=== PATIENT | female | born 1950 | race Caucasian/White ===

== ENCOUNTER 2023-03-29 15:36 | Outpatient (OUT) | payer MEDICARE, SELFPAY | END 2023-03-29 15:37 | disposition home or self-care (01) | LOC: VACCLI 04-03 15:36 | DX: Z23 Encounter for immunization (principal) | CPT/HCPCS: 90662; G0008 ==

== ENCOUNTER 2023-05-19 08:09 | Outpatient (OUT) | payer MEDICARE, OTHER, SELFPAY ==
--- NOTE | 2023-05-19 08:13 | MM_ITS ---
Patient Name: TANI LOGAN MR#: [id number] : 1950 Exam Date: 05/19/2023 Ordering Doctor: DR. SUSHIL HERNANDEZ . RADIOLOGY REPORT PROCEDURE: MM TOMOSYNTHESIS SCREENING BI COMPARISON: MG MAMM SCREEN BEENA W CAD, 11/25/2019. MG MAMM SCREEN 3D BEENA CAD, 05/17/2022. INDICATIONS: Screening Calculator Name NCI Breast Cancer Risk Assessment Tool 5 Year Breast Cancer Risk 1.40% Lifetime Breast Cancer Risk 3.40% Personal Breast Cancer No Personal Ovarian Cancer No Treatments None Family Cancers Aunt-maternal with colon cancer at age ~60; Aunt-maternal with breast cancer at age ~60. LOCATION: [facility] BREAST COMPOSITION: Heterogeneously dense,which may obscure small masses. FINDINGS: DIAGNOSTIC CATEGORY 1--NEGATIVE. NO CHANGE FROM COMPARISON ASSESSMENT. Scattered benign-appearing calcifications are present. RIGHT BREAST: No significant suspicious finding. LEFT BREAST: No significant suspicious finding. RECOMMENDATIONS: ROUTINE MAMMOGRAM AND CLINICAL EVALUATION IN 12 MONTHS. PLEASE NOTE: A NORMAL MAMMOGRAM DOES NOT EXCLUDE THE POSSIBILITY OF BREAST CANCER. A CLINICALLY SUSPICIOUS PALPABLE LUMP SHOULD BE BIOPSIED. Dictated by: Glen Moffett MD on 05/19/2023 at 12:55 Approved by: Glen Moffett MD on 05/19/2023 at 12:56
== END 2023-05-19 08:10 | disposition home or self-care (01) ==
LOC: MAMMO 08:09
PROVIDERS: PCP Family Medicine; Visit Provider Family Medicine
DX: Z12.31 Encounter for screening mammogram for malignant neoplasm of breast (principal); Z80.0 Family history of malignant neoplasm of digestive organs; Z80.3 Family history of malignant neoplasm of breast
CPT/HCPCS: 77063; 77067

== ENCOUNTER 2024-05-20 09:56 | Outpatient (OUT) | payer MEDICARE, OTHER, SELFPAY ==
--- NOTE | 2024-05-20 09:59 | MM_ITS ---
Patient Name: TANI LOGAN MR#: [id number] : 1950 Exam Date: 05/20/2024 Ordering Doctor: DR. SUSHIL HERNANDEZ . RADIOLOGY REPORT PROCEDURE: MM TOMOSYNTHESIS SCREENING BI COMPARISON: MM TOMOSYNTHESIS SCREENING BI, 05/19/2023. MG MAMM SCREEN 3D BEENA CAD, 05/17/2022. INDICATIONS: Screening Calculator Name NCI Breast Cancer Risk Assessment Tool 5 Year Breast Cancer Risk 1.40% Lifetime Breast Cancer Risk 3.20% Personal Breast Cancer No Personal Ovarian Cancer No Treatments None Family Cancers Aunt-maternal with colon cancer at age ~60; Aunt-maternal with breast cancer at age ~60. LOCATION: [facility] BREAST COMPOSITION: The breasts are heterogeneously dense,which may obscure small masses. FINDINGS: DIAGNOSTIC CATEGORY 1--NEGATIVE. NO CHANGE FROM COMPARISON ASSESSMENT. Scattered benign-appearing calcifications are present. Scattered benign-appearing lymph nodes are present. RIGHT BREAST: No significant suspicious finding. LEFT BREAST: No significant suspicious finding. RECOMMENDATIONS: ROUTINE MAMMOGRAM AND CLINICAL EVALUATION IN 12 MONTHS. PLEASE NOTE: A NORMAL MAMMOGRAM DOES NOT EXCLUDE THE POSSIBILITY OF BREAST CANCER. A CLINICALLY SUSPICIOUS PALPABLE LUMP SHOULD BE BIOPSIED. Dictated by: Glen Moffett MD on 05/20/2024 at 13:25 Approved by: Glen Moffett MD on 05/20/2024 at 13:26
--- OUTSIDE RECORDS SUMMARY | 2024-05-20 10:16 | XMS_ITS | CCD ---
Author Organization [facility] Care Team Providers Care Clinical Research Physician Name Role Phone HOMER, DR YOANNA Pitts Consulting Unavailable HOMER, DR YOANNA Pitts Primary Care Unavailable CORONEL, DR YOANNA Pitts Admitting Unavailable CORONEL, DR YOANNA Pitts Attending Unavailable Ziebgrisel, DR Garcia Consulting Unavailable CORONEL, DR YOANNA Pitts Consulting Unavailable HOMER, DR YOANNA Pitts Primary Care Unavailable CORONEL, DR YOANNA Pitts Admitting Unavailable CORONEL, DR YOANNA Pitts Attending Unavailable CORONEL, DR YOANNA Pitts Consulting Unavailable CORONEL, DR YOANNA Pitts Primary Care Unavailable CORONEL, DR YOANNA Pitts Admitting Unavailable CORONEL, DR YOANNA Pitts Attending Unavailable CORONEL, DR YOANNA Pitts Consulting Unavailable CORONEL, DR YOANNA Pitts Primary Care Unavailable CORONEL, DR YOANNA Pitts Admitting Unavailable CORONEL, DR YOANNA Pitts Attending Unavailable Hiren, DR Garcia Consulting Unavailable CORONEL, DR YOANNA Pitts Attending Unavailable CORONEL, DR YOANNA Pitts Consulting Unavailable HOMER, DR YOANNA Pitts Primary Care Unavailable HOMER, DR YOANNA Pitts Admitting Unavailable Asim Hanks. Primary Care Physician Asim Hanks. Attending Unavailable Asim Hanks. Attending Unavailable Asim Hanks. Admitting Unavailable Asim Hanks. Attending Unavailable Asim Hanks. Attending Unavailable Asim Hanks. Attending Unavailable Asim Hanks Attending Unavailable Asim Hanks Attending Unavailable Asim Hanks Attending Unavailable Asim Hanks. Attending Unavailable Allergies Allergy Classification Reported Allergen(s) Allergy Type Date of Onset Reaction(s) Facility (1 source) No Known Medication Allergies; Translations: [No Known Medication Allergies] Propensity to adverse reactions (disorder) [facility] Repository Medications Current Medications Medication Drug Class(es) Dates Sig (Normalized) Sig (Original) amLODIPine 5 mg oral tablet (1 source) Dihydropyridine Calcium Channel Liliana Start: 08-24-2023 take 1 tablet by mouth once daily amLODIPine 5 mg Tab See Instructions, TAKE 1 TABLET BY MOUTH EVERY DAY, # 90 tab(s), Refills(s) 1, Pharmacy: [facility]/pharmacy #[id number], 147.3, cm, 08/24/23 9:10:00 EDT, Height/Length Dosing, 89.3, kg, 08/24/23 9:10:00 EDT, Weight Dosing Start Date: 08/24/23 Status: Ordered Problems Problem Classification Problem Date Documented Date Episodic/Chronic Diabetes mellitus without complication (4 sources) Hyperglycemia, unspecified; Translations: [HYPERGLYCEMIA UNSPECIFIED] Onset: 06-24-2022 Episodic Disorders of lipid metabolism (5 sources) Pure hypercholesterolemia, unspecified; Translations: [Hypercholesterolemia ] Onset: 06-18-2022 Chronic Essential hypertension (1 source) Essential hypertension 01-02-2023 Chronic Malaise and fatigue (1 source) Other fatigue; Translations: [OTHER FATIGUE] Onset: 06-25-2022 Episodic Nonmalignant breast conditions (1 source) Fibrocystic disease of breast 12-15-2022 Chronic Osteoarthritis (1 source) Osteoarthritis of multiple joints 01-02-2023 Chronic Comment on above: left knee Osteoporosis (1 source) Age-related osteoporosis without current pathological fracture; Translations: [AGE-REL OSTEOPOR W/O CURR PATH FX] Onset: 06-28-2022 Chronic Other and unspecified benign neoplasm (1 source) Villous adenoma of colon 12-15-2022 Episodic Other screening for suspected conditions (not mental disorders or infectious disease) (9 sources) Encounter for screening for osteoporosis; Translations: [Encounter for screening for malignant neoplasm of cervix] Onset: 05-17-2022 Episodic Residual codes; unclassified (4 sources) Asymptomatic menopausal state; Translations: [ASYMPTOMATIC MENOPAUSAL STATE] Onset: 06-23-2022 Episodic Residual codes; unclassified (1 source) Family history of malignant neoplasm of digestive organs; Translations: [FAM HX MALIG NEOPLASM DIGESTIV ORGN] Onset: 05-22-2022 Episodic Residual codes; unclassified (1 source) Family history of malignant neoplasm of breast; Translations: [FAMILY HX MALIG NEOPLASM OF BREAST] Onset: 05-22-2022 Episodic Results Test Name Value Interpretation Reference Range Facil ity Ambulatory Visit Summaryon 1 Ambulatory Visit Summary Ambulatory Visit Summary AZUL LOGAN :1950 Visit Date:03/26/2024 Ambulatory Visit Instructions Your Diagnosis Primary hypertension BMI 40.0-44.9, adult Morbid obesity with BMI of 40.0-44.9, adult Nonsmoker Age-related osteoporosis without current pathological fracture Hypercholesterolemia Your Care Team Attending Physician - Asim Hanks MD Primary Care Physician - Asim Hanks MD This Is Your Medications List amlodipine (amLODIPine 10 mg Tab) Procedures Performed Appendectomy, Colonoscopy, Hysteroscopy. Discharge Vitals Temperature (Temporal Artery) 36.4 ?C Heart Rate (Peripheral) 72 Respiratory Rate 16 Blood Pressure 132/84 Height 147 cm Height 58 in Weight 87.3 kg Weight 192.06 lb BMI 40.4 What to do next Scheduled Follow-Up Appointments 2024 9:30 AM EDT With: Where: [address] [address]- 2024 10:30 AM EDT With: Asim Hanks MD Where: [address] [address]- Medications What How Much When Instructions Unchanged amlodipine (amLODIPine 10 mg Tab) 1 Tablets By Mouth Every day Pickup at [facility]/pharmacy #[id number] Pharmacy Information [facility]/pharmacy #[id number]: [address], [place] [id number] [phone] Allergies No Known Allergies No Known Medication Allergies Problems Ongoing - Any problem that you are currently receiving treatment for. BMI 40.0-44.9, adult Fibrocystic breast disease (FCBD) Hypercholesterolemia Osteoarthritis of multiple joints Osteoporosis Primary hypertension Serous otitis media Sinusitis Statin intolerance Villous adenoma of colon Patient Survey You may receive a survey via text or e-mail asking about your office visit. Please share your experience with us by completing your survey. We appreciate your feedback and thank you for choosing us for your care. Education Materials BMI for Adults Body mass index (BMI) is a number found using a person's weight and height. BMI can help tell how much of a person's weight is made up of fat. BMI does not measure body fat directly. It is used instead of tests that directly measure body fat, which can be difficult and expensive. What are BMI measurements used for? BMI is useful to: ? Find out if your weight puts you at higher risk for medical problems. ? Help recommend changes, such as in diet and exercise. This can help you reach a healthy weight. BMI screening can be done again to see if these changes are working. How is BMI calculated? Your height and weight are measured. The BMI is found from those numbers. This can be done with U.S. or metric measurements. Note that charts and online BMI calculators are available to help you find your BMI quickly and easily without doing these calculations. To calculate your BMI in U.S. measurements: 1. Measure your weight in pounds (lb). 2. Multiply the number of pounds by 703. ? So, for an adult who weighs 150 lb, multiply that number by 703: 150 x 703, which equals 105,450. 3. Measure your height in inches. Then multiply that number by itself to get a measurement called inches squared. ? So, for an adult who is 70 inches tall, the inches squared measurement is 70 inches x 70 inches, which equals 4,900 inches squared. 4. Divide the total from step 2 (number of lb x 703) by the total from step 3 (inches squared): 105,450 ? 4,900 = 21.5. This is your BMI. To calculate your BMI in metric measurements: 1. Measure your weight in kilograms (kg). ? For this example, the weight is 70 kg. 2. Measure your height in meters (m). Then multiply that number by itself to get a measurement called meters squared. ? So, for an adult who is 1.75 m tall, the meters squared measurement is 1.75 m x 1.75 m, which equals 3.1 meters squared. 3. Divide the number of kilograms (your weight) by the meters squared number. In this example: 70 ? 3.1 = 22.6. This is your BMI. What do the results mean? BMI charts are used to see if you are underweight, normal weight, overweight, or obese. The following guidelines will be used: ? Underweight: BMI less than 18.5. ? Normal weight: BMI between 18.5 and 24.9. ? Overweight: BMI between 25 and 29.9. ? Obese: BMI of 30 or above. BMI is a tool and cannot diagnose a condition. Talk with your health care provider about what your BMI means for you. Keep these notes in mind: ? Weight includes fat and muscle. Someone with a muscular build, such as an athlete, may have a BMI that is higher than 24.9. In cases like these, BMI is not a correct measure of body fat. ? If you have a BMI of 25 or higher, your provider may need to do more testing to find out if excess body fat is the cause. ? BMI (more content not included)... Normal [facility] Family Medicine Office/Clini c Noteon 03-26-2024 Family Medicine Office/Clinic Note Family Medicine Office/Clinic Note [facility] Staff Azul is a 73 year old female presenting for 6 month follow up htn In september increased her [facility] Patient is here for follow up on hypertension. How often are you checking your blood pressure? rarely, her monitor quit working What are your average readings? _ Yearly BMP: 08/24/23_ questions/concerns: none History of Present Illness The patient is a 73-year-old female presenting for a routine follow-up visit. She has a history of morbid obesity with BMI of 40.0-44.9, nonsmoker status, and primary hypertension. The patient mentioned having a history of osteoporosis; however, she is not currently on medication for this condition and does not desire treatment at this time. There was a discussion regarding her excellent blood pressure control with the medication Amlodipine (Norvasc), which she tolerates well without significant peripheral edema. The patient expressed satisfaction with her current health status and was reassured about her slightly elevated cholesterol levels, noting that recent guidelines suggest less concern in her age group without prior cardiovascular events. She reported sinus issues exacerbated by seasonal allergies, with suggestions to use Benadryl and Flonase as needed. Review of Systems PHQ Score Initial Depression Screen Score: 0 SCORE Physical Exam Vitals & Measurements T: 36.4 ?C(Temporal Artery) HR: 72(Peripheral) RR: 16 BP: 132/84 SpO2: 98% HT: 58 in HT: 147 cm WT: 87.3 kg WT: 192.06 lb BMI: 40.4 General: alert, no acute distress ENMT: oral mucosa moist Cardiovascular: Regular rate and rhythm, normal peripheral perfusion Respiratory: Lungs clear to auscultation, respirations non labored Extremities: no deformity, no trauma Neurological: oriented x 4, level of consciousness appropriate for age, CN II-XII intact, motor strength equal & normal bilaterally, speech normal Abdomen: Soft, Non-tender, Non-distended, + Bowel sounds Assessment/Plan 1. Primary hypertension (I10: Essential (primary) hypertension) Blood pressure is well-controlled with Amlodipine (Norvasc). No side effects reported except mild sinus issues, possibly related to allergies. Plan to continue current antihypertensive regimen and consider annual monitoring of cholesterol levels. 2. BMI 40.0-44.9, adult (Z68.41: Body mass index [BMI] 40.0-44.9, adult) BMI education added. 3. Morbid obesity with BMI of 40.0-44.9, adult (E66.01: Morbid (severe) obesity due to excess calories) Continued monitoring of weight and BMI recommended. Discussion of maintaining a balanced diet and regular exercise to manage weight. Patient was encouraged to consider nutritional counseling, although no immediate changes in management were discussed for this visit. 4. Nonsmoker (Z78.9: Other specified health status) No specific follow-up needed for smoker status; continue to promote and support smoke-free lifestyle. 5. Age-related osteoporosis without current pathological fracture (M81.0) The patient declined any pharmaceutical intervention for osteoporosis. Recommended maintaining calcium and vitamin D-rich diet with adequate physical activity to support bone health. 6. Hypercholesterolemia (E78.00: Pure hypercholesterolemia, unspecified) Reviewed labs. Not interested in meds at this time. Orders: amlodipine, 10 mg = 1 tab(s), Oral, Daily, # 90 tab(s), Refills(s) 1, Pharmacy: [facility]/pharmacy #[id number], 147, cm, 03/26/24 9:07:00 EDT, Height/Length Dosing, 87.3, kg, 03/26/24 9:07:00 EDT, Weight Dosing Follow-up No qualifying data available Patient Education BMI for Adults Problem List/Past Medical History Ongoing BMI 40.0-44.9, adult Fibrocystic breast disease (FCBD) Hypercholesterolemia Osteoarthritis of multiple joints Osteoporosis Primary hypertension Serous otitis media Sinusitis Statin intolerance Villous adenoma of colon Historical No qualifying data Procedure/Surgical History Appendectomy, Colonoscopy, Hysteroscopy. Medications amLODIPine 10 mg Tab, 10 mg= 1 tab(s), Oral, Daily, 1 refills Allergies No Known Allergies No Known Medication Allergies Social History Alcohol - Low Risk, 09/21/2023 Never., 03/21/2024 Substance Abuse - Denies Substance Abuse, 09/21/2023 Never., 03/21/2024 Tobacco - Denies Tobacco Use, 09/21/2023 Never (less than 100 in lifetime) Tobacco Use:., 03/26/2024 Family History Heart disease: Father. Immunizations Vaccine Date Status Comments SARS-CoV-2 (COVID-19) mRNA BNT-162b2 vax 04/07/2021 Recorded 2022-12-28: TPV70 SARS-CoV-2 (COVID-19) mRNA BNT-162b2 vax 08/04/2020 Recorded 2022-12-28: TPV70 SARS-CoV-2 (COVID-19) mRNA BNT-162b2 vax 07/14/2020 Recorded 2022-12-28: TPV70 influenza virus vaccine, inactivated 03/05/2015 Recorded Normal [facility] Comment on above: Result Comment: Elec tronically Signed By: Asim Hanks MD\.br\Date and Time Signed: 03/26/24 09:32 EDT Ambulatory Visit Summaryon 0 02-12-2024 Ambulatory Visit Summary Ambulatory Visit Summary AZUL LOGAN :1950 Visit Date:02/12/2024 Ambulatory Visit Instructions Your Diagnosis Primary hypertension Serous otitis media Sinusitis BMI 40.0-44.9, adult, Body mass index [BMI] 40.0-44.9, adult Class 3 severe obesity due to excess calories with body mass index (BMI) of 40.0 to 44.9 in adult Your Care Team Attending Physician - Asim Hanks MD. Primary Care Physician - Asim Hanks MD This Is Your Medications List amlodipine (amLODIPine 10 mg Tab) Procedures Performed Appendectomy, Colonoscopy, Hysteroscopy. Discharge Vitals Temperature (Temporal Artery) 36.7 ?C Heart Rate (Peripheral) 70 Respiratory Rate 16 Blood Pressure 124/82 Height 147 cm Height 58 in Weight 88.0 kg Weight 193.6 lb BMI 40.72 What to do next Scheduled Follow-Up Appointments Monday 9:15 AM EDT With: Demario DSOUZA, Asim Palmer Where: [address] [address]- 2024 9:30 AM EDT With: Where: [address] [address]- Medications What How Much When Instructions Unchanged amlodipine (amLODIPine 10 mg Tab) 1 Tablets By Mouth Every day Allergies No Known Allergies No Known Medication Allergies Problems Ongoing - Any problem that you are currently receiving treatment for. BMI 40.0-44.9, adult Fibrocystic breast disease (FCBD) Hypercholesterolemia Osteoarthritis of multiple joints Osteoporosis Primary hypertension Serous otitis media Sinusitis Statin intolerance Villous adenoma of colon Patient Survey You may receive a survey via text or e-mail asking about your office visit. Please share your experience with us by completing your survey. We appreciate your feedback and thank you for choosing us for your care. Normal [facility] Family Medicine Office/Clini c Noteon 02-12-2024 Family Medicine Office/Clinic Note Family Medicine Office/Clinic Note HPI Staff Azul is a 73 year old female presenting for acute visit Acute: sinus issues persists all through the year and ears are clogged that's just been the last couple months Headache- no Earache- yes ears plugged up mainly left one Sinus Congestion- yes Rhinorrhea- no Sore Throat- no Cough- yes not much wheezing- no Dyspnea on exertion- no Orthopnea- Trouble laying flat/breathing through nose: nodoesn't lay flat ever Lung Hx (asthma, recurring bronchitis/chest colds, COPD)- no Fevers/chills- no GI symptoms- no History of Present Illness - See staff HPI. Review of Systems PHQ Score Initial Depression Screen Score: 0 SCORE Physical Exam Vitals & Measurements T: 36.7 ?C(Temporal Artery) HR: 70(Peripheral) RR: 16 BP: 124/82 SpO2: 98% HT: 58 in HT: 147 cm WT: 88.0 kg WT: 193.6 lb BMI: 40.72 General: alert, no acute distress ENMT: oral mucosa moist, Fluid noted behind both ears. Cardiovascular: regular rate and rhythm, normal peripheral perfusion Respiratory: Lungs CTA, respirations non labored Extremities: no deformity, no trauma Neurological: oriented x 4, LOC appropriate for age, CN II-XII intact, motor strength equal & normal bilaterally, speech normal Abdomen: Soft, Nontender, Non-distended, + BS Assessment/Plan 1. Primary hypertension (I10: Essential (primary) hypertension) - At goal. - NO issues at this time. Ordered: Body Mass Index (BMI) documented 3008F Current tobacco non-user 1036F Depression Screening Negative 3352F Most recent diastolic blood pressure 80-89 mm Hg 3079F Patient screen for fall risk: no falls in last year or 1 fall with no injury in last year 1101F Systolic BP <130 mm Hg (Most Recent) 3074F 2. Serous otitis media (H65.90: Unspecified nonsuppurative otitis media, unspecified ear) - Will you medrol dose sagar - Will do benadryl for at night. Gave precautions with benadryl. Ordered: Body Mass Index (BMI) documented 3008F Current tobacco non-user 1036F Depression Screening Negative 3352F Most recent diastolic blood pressure 80-89 mm Hg 3079F Patient screen for fall risk: no falls in last year or 1 fall with no injury in last year 1101F Systolic BP <130 mm Hg (Most Recent) 3074F 3. Sinusitis (J32.9: Chronic sinusitis, unspecified) - As above. - Zyrtec. Ordered: Body Mass Index (BMI) documented 3008F Current tobacco non-user 1036F Depression Screening Negative 3352F Most recent diastolic blood pressure 80-89 mm Hg 3079F Patient screen for fall risk: no falls in last year or 1 fall with no injury in last year 1101F Systolic BP <130 mm Hg (Most Recent) 3074F 4. BMI 40.0-44.9, adult (Z68.41: Body mass index [BMI] 40.0-44.9, adult) - BMI education added Ordered: Body Mass Index (BMI) documented 3008F Current tobacco non-user 1036F Depression Screening Negative 3352F Most recent diastolic blood pressure 80-89 mm Hg 3079F Patient screen for fall risk: no falls in last year or 1 fall with no injury in last year 1101F Systolic BP <130 mm Hg (Most Recent) 3074F 5. Class 3 severe obesity due to excess calories with body mass index (BMI) of 40.0 to 44.9 in adult (E66.01: Morbid (severe) obesity due to excess calories) - Diet and exercise advised. Ordered: Body Mass Index (BMI) documented 3008F Current tobacco non-user 1036F Depression Screening Negative 3352F Most recent diastolic blood pressure 80-89 mm Hg 3079F Patient screen for fall risk: no falls in last year or 1 fall with no injury in last year 1101F Systolic BP <130 mm Hg (Most Recent) 3074F 6. Nonsmoker (Z78.9: Other specified health status) - Please continue to not smoke. Ordered: Body Mass Index (BMI) documented 3008F Current tobacco non-user 1036F Depression Screening Negative 3352F Most recent diastolic blood pressure 80-89 mm Hg 3079F Patient screen for fall risk: no falls in last year or 1 fall with no injury in last year 1101F Systolic BP <130 mm Hg (Most Recent) 3074F Orders: methylPREDNISolone, = 1 packet(s), Oral, As Directed, as directed on package labeling, X 6 day(s), # 21 tab(s), Refills(s) 0, Pharmacy: [facility]/pharmacy #[id number], 147, cm, 02/12/24 13:52:00 EDT, Height/Length Dosing, 88, kg, 02/12/24 13:52:00 EDT, Weight Dosing Follow-up No qualifying data available Problem List/Past Medical History Ongoing BMI 40.0-44.9, adult Fibrocystic breast disease (FCBD) Hypercholesterolemia Osteoarthritis of multiple joints Osteoporosis Primary hypertension Serous otitis media Sinusitis Statin intolerance Villous adenoma of colon Historical No qualifying data Procedure/Surgical History Appendectomy, Colonoscopy, Hysteroscopy. Medications amLODIPine 10 mg Tab, 10 mg= 1 tab(s), Oral, Daily, 4 refills Medrol 4 mg Tab, 1 packet(s), Oral, As Directed Allergies No Known Allergies No Known Medication Allergies Social History Alcohol - Low Risk, 09/21/2023 Current, Wine (more content not included)... Normal [facility] Comment on above: Result Comment: Elec tronically Signed By: Asim Hanks MD\.br\Date and Time Signed: 02/12/24 14:02 EDT Nurse Consultation Noteon Nurse Consultation Note Reason for Visit Blood pressure reading. Medications amLODIPine 10 mg Tab, 10 mg= 1 tab(s), Oral, Daily Allergies No Known Allergies No Known Medication Allergies Immunizations Vaccine Date Status Comments SARS-CoV-2 (COVID-19) mRNA BNT-162b2 vax 04/07/2021 Recorded 2022-12-28: TPV70 SARS-CoV-2 (COVID-19) mRNA BNT-162b2 vax 08/04/2020 Recorded 2022-12-28: TPV70 SARS-CoV-2 (COVID-19) mRNA BNT-162b2 vax 07/14/2020 Recorded 2022-12-28: TPV70 Normal [facility] Ambulatory Visit Summaryon 0 09-25-2023 Ambulatory Visit Summary AZUL LOGAN :1950 Visit Date:09/25/2023 Ambulatory Visit Instructions Your Diagnosis Primary hypertension BMI 40.0-44.9, adult Class 3 severe obesity due to excess calories with body mass index (BMI) of 40.0 to 44.9 in adult Statin intolerance Hypercholesterolemia Your Care Team Attending Physician - Asim Hanks MD Primary Care Physician - Asim Hanks MD This Is Your Medications List amlodipine (amLODIPine 10 mg Tab) Procedures Performed Appendectomy, Colonoscopy, Hysteroscopy. Discharge Vitals Temperature (Oral) 36.6 ?C Heart Rate (Peripheral) 80 Respiratory Rate 18 Blood Pressure 156/90 Height 147 cm Height 58 in Weight 88.4 kg Weight 194.48 lb BMI 40.91 What to do next Scheduled Follow-Up Appointments Monday 9:00 AM EDT With: Where: [facility] Invalid Interpretation Code [address] [place] [address]- \.br\ 2024 9:30 AM EDT \.br\ With:\.br\ Where: [facility] Medicine Office/Clini c Noteon 09-25-2023 [facility] Medicine Office/Clinic Note Chief Complaint Medicare Wellness Subsequent History of Present Illness Covid-19, MERS, Ebola Screen *Contact With Person With Highly Contagious Disease Like Ebola/MERS/COVID-19 AND Have One or More of the Symptoms Below : No *Travel to a Country With Wide-Spread Ebola/MERS/COVID-19 in the Past 21 Days AND Have One or More of the Symptoms Below : No Patient Reported Covid-19 Testing : No *Verify Droplet, Contact Precautions for Ebola (Reference for CDC) : N/A *Verify Airborne, Droplet Precautions for MERS/COVID-19 : N/A Myra Nieto LPN - 09/21/2023 9:30 EDT Medicare/Medicaid Summary Chief Complaint : Medicare Wellness Subsequent Patient Counseled : Nutrition, Physical activity, Elevated BMI Height/Length Measured : 147 cm(Converted to: 4 ft 10 in, 57.87 in) Weight Measured : 88 kg(Converted to: 194 lb 0 Ounces, 194.007 lb) Body Mass Index Measured : 40.72 kg/m2 Height in Inches : 58 in Weight in Pounds : 193.6 lb Systolic Blood Pressure : 172 mmHg (HI) Diastolic Blood Pressure : 112 mmHg (HI) Blood Pressure Location : Right arm Blood Pressure Position : Sitting O2 Sat Resting/Exertion Alpha : Resting Peripheral Pulse Rate : 73 bpm Respiratory Rate : 16 br/min SpO2 : 94 % Pain Present : No actual or suspected pain Myra Nieto LPN - 09/21/2023 9:30 EDT Hearing and Vision Screening FT FT Whisper Test Comments : No deficits noted. Vision Screen Comments : Wears corrective lenses. Sees Dr. Nathan in [facility] Myra Nieto LPN - 09/21/2023 9:30 EDT Advance Directive FT Advance Directive : No Patient Wishes to Receive Further Information on Advance Directives : Yes Organ Donation Consent : No Myra Nieto LPN - 09/21/2023 9:30 EDT Procedures / Surgeries FT - Procedure History (As Of: 09/21/2023 10:34:47 EDT) Anesthesia Minutes: 0 ; Procedure Name: Appendectomy ; Procedure Minutes: 0 ; Last Reviewed Dt/Tm: 09/21/2023 09:31:36 EDT Anesthesia Minutes: 0 ; Procedure Name: Hysteroscopy ; Procedure Minutes: 0 ; Comments: 12/15/2022 13:16 EDT - Jeannette Santos LPN w/ D&C 05/2004 ; Last Reviewed Dt/Tm: 09/21/2023 09:31:36 EDT Anesthesia Minutes: 0 ; Procedure Name: Colonoscopy ; Procedure Minutes: 0 ; Comments: 12/15/2022 13:15 EDT - Jeannette Santos LPN 2006, 2009, 2015, repeat 5 years ; Last Reviewed Dt/Tm: 09/21/2023 09:31:36 EDT Family History Family History (As Of: 09/21/2023 10:34:47 EDT) Father: Relation: Father ; Gender: Male ; Nomenclature: Heart disease ; Value: Positive Medicare/Medicaid Social History FT Social History (As Of: 09/21/2023 10:34:47 EDT) Alcohol: Low Risk Current, Wine, 1-2 times per year, 1 drinks/episode average. 1.00 drinks/episode maximum. Previous treatment: None. Alcohol use interferes with work or home: No. Drinks more than intended: No. Others hurt by drinking: No. Ready to change: No. Household alcohol concerns: No. (Last Updated: 09/21/2023 09:46:46 EDT by Myra Nieto LPN) Tobacco: Denies Tobacco Use Never (less than 100 in lifetime) Tobacco Use:. Never Smokeless Tobacco Use:. (Last Updated: 08/24/2023 09:03:29 EDT by Jeannette Santos LPN) Substance Abuse: Denies Substance Abuse (Last Updated: 09/21/2023 09:46:49 EDT by Myar Nieto LPN ) Health Risk Assessment FT HRA little interest or pleasure? : No HRA down, depressed, or hopeless? : No Hazards in your house? : No Fall Risk Past Year : No Worried About Falling : No Use a Cane or Walker? : No Someone Helps You in the Morning : No Fallen or felt dizzy standing up? : No Assistance with personal care? : No Trouble taking meds correctly? : No HRA Pain Present : No Able to walk without help? : Yes Ability to shop w/out help : Yes Prepare your own meals? : Yes Housework without help? : Yes Handle money without help : Yes Track own medications without help? : Yes Overall mood for past four weeks : Very well General health rating : Excellent Someone avail. to help if needed? : Yes, as much as I wanted Phys. & emotional health limit social act? : Not at all Gerson REED Myra L - 09/21/2023 9:30 EDT Misc Health Risks Grid Sexual problems : Never Trouble eating well : Never Teeth or denture problems : Never Problems using the telephone : Never Myra Nieto LPN 09/21/2023 9:30 EDT Confident you control health problems : Very confident Difficulties driving your car? : No Seatbelts : I always fasten my seat belt Myra Nieto LPN - 09/21/2023 9:30 EDT Depression Screening Little Interest, Pleasure in Activities (ref) : Not at all Feeling Down, Depressed, Hopeless : Not at all Initial Depression Screening Score : 0 SCORE Depression Screening Result : Negative Myra Nieto LPN - 09/21/2023 9:30 EDT Social Determinants (PRAPARE) What is your housing situation today? : I have housing You or Family Gone Without Household Needs Past Year : No No Transport to Med Appts/Rajni (more content not included)... Normal [facility] Comment on above: Result Comment: Elec tronically Signed By: Asim Hanks MD\.br\Date and Time Signed: 09/25/23 12:52 EDT\.br\Electronically Co-Signed By: Myra Nieto LPN\.br\Date and Time Co-Signed: 09/21/23 10:52 EDT Family Medicine Office/Clinic Note HPI Staff Azul is a 72 year old female presenting for BP check Elevated blood pressure at AWV 168/88 Patient is here for follow up on hypertension. How often are you checking your blood pressure? did occasionally check at home but monitor broke a week ago What are your average readings? 134-140/82-84 Yearly BMP: 08/24/23 History of Present Illness - See staff HPI. - Statins caused muscle aches. Physical Exam Vitals & Measurements T: 36.6 ?C(Oral) HR: 80(Peripheral) RR: 18 BP: 156/90 SpO2: 98% HT: 58 in HT: 147 cm WT: 88.4 kg WT: 194.48 lb BMI: 40.91 General: alert, no acute distress ENMT: oral mucosa moist, Cardiovascular: regular rate and rhythm, normal peripheral perfusion Respiratory: Lungs CTA, respirations non labored Extremities: no deformity, no trauma Neurological: oriented x 4, LOC appropriate for age, CN II-XII intact, motor strength equal & normal bilaterally, speech normal Abdomen: Soft, Nontender, Non-distended, + BS Assessment/Plan 1. Primary hypertension (I10: Essential (primary) hypertension) - Not at goal. - Increased the Norvasc. - Nurse visit for BP check in one month 2. BMI 40.0-44.9, adult (Z68.41: Body mass index [BMI] 40.0-44.9, adult) - BMI education uploaded Ordered: Body Mass Index (BMI) documented 3008F Current tobacco non-user 1036F Depression Screening Negative 3352F Most recent diastolic blood pressure >=90 mm Hg 3080F Most recent systolic blood pressure >= 140 mm Hg 3077F Patient screen for fall risk: no falls in last year or 1 fall with no injury in last year 1101F 3. Class 3 severe obesity due to excess calories with body mass index (BMI) of 40.0 to 44.9 in adult (E66.01: Morbid (severe) obesity due to excess calories) - Diet and exercise advised and discussed Ordered: Body Mass Index (BMI) documented 3008F Current tobacco non-user 1036F Depression Screening Negative 3352F Most recent diastolic blood pressure >=90 mm Hg 3080F Most recent systolic blood pressure >= 140 mm Hg 3077F Patient screen for fall risk: no falls in last year or 1 fall with no injury in last year 1101F 4. Statin intolerance (Z78.9: Other specified health status) - Pt wants to use diet and exercise to control her cholesterol Ordered: Body Mass Index (BMI) documented 3008F Current tobacco non-user 1036F Depression Screening Negative 3352F Most recent diastolic blood pressure >=90 mm Hg 3080F Most recent systolic blood pressure >= 140 mm Hg 3077F Patient screen for fall risk: no falls in last year or 1 fall with no injury in last year 1101F 5. Hypercholesterolemia (E78.00: Pure hypercholesterolemia, unspecified) - As above. - Reviewed labs Orders: amlodipine, 10 mg = 1 tab(s), Oral, Daily, # 90 tab(s), Refills(s) 0, Pharmacy: [facility]/pharmacy #[id number], 147, cm, 09/25/23 10:46:00 EDT, Height/Length Dosing, 88.4, kg, 09/25/23 10:46:00 EDT, Weight Dosing Follow-up No qualifying data available Patient Education BMI for Adults Problem List/Past Medical History Ongoing BMI 40.0-44.9, adult Fibrocystic breast disease (FCBD) Hypercholesterolemia Osteoarthritis of multiple joints Primary hypertension Statin intolerance Villous adenoma of colon Historical No qualifying data Procedure/Surgical History Appendectomy, Colonoscopy, Hysteroscopy. Medications amLODIPine 10 mg Tab, 10 mg= 1 tab(s), Oral, Daily Allergies No Known Allergies No Known Medication Allergies Social History Alcohol - Low Risk, 09/21/2023 Current, Wine, 1-2 times per year, 1 drinks/episode average. 1.00 drinks/episode maximum. Previous treatment: None. Alcohol use interferes with work or home: No. Drinks more than intended: No. Others hurt by drinking: No. Ready to change: No. Household alcohol concerns: No., 09/21/2023 Substance Abuse - Denies Substance Abuse, 09/21/2023 Tobacco - Denies Tobacco Use, 09/21/2023 Never (less than 100 in lifetime) Tobacco Use:. Never Smokeless Tobacco Use:., 09/25/2023 Family History Heart disease: Father. Immunizations Vaccine Date Status Comments SARS-CoV-2 (COVID-19) mRNA BNT-162b2 vax 04/07/2021 Recorded 2022-12-28: TPV70 SARS-CoV-2 (COVID-19) mRNA BNT-162b2 vax 08/04/2020 Recorded 2022-12-28: TPV70 SARS-CoV-2 (COVID-19) mRNA BNT-162b2 vax 07/14/2020 Recorded 2022-12-28: TPV70 Normal [facility] Comment on above: Result Comment: Elec tronically Signed By: Demario DSOUZA, Asim Rollebr\Date and Time Signed: 09/25/23 11:00 EDT Patient Educationon 09-25-19 Patient Education Nutrition BMI for Adults What is BMI? Body mass index (BMI) is a number that is calculated from a person's weight and height. BMI can help estimate how much of a person's weight is composed of fat. BMI does not measure body fat directly. Rather, it is an alternative to procedures that directly measure body fat, which can be difficult and expensive. BMI can help identify people who may be at higher risk for certain medical problems. What are BMI measurements used for? BMI is used as a screening tool to identify possible weight problems. It helps determine whether a person is obese, overweight, a healthy weight, or underweight. BMI is useful for: ? Identifying a weight problem that may be related to a medical condition or may increase the risk for medical problems. ? Promoting changes, such as changes in diet and exercise, to help reach a healthy weight. BMI screening can be repeated to see if these changes are working. How is BMI calculated? BMI involves measuring your weight in relation to your height. Both height and weight are measured, and the BMI is calculated from those numbers. This can be done either in [place] or metric measurements. Note that charts and online BMI calculators are available to help you find your BMI quickly and easily without having to do these calculations yourself. To calculate your BMI in [place] measurements: 1. Measure your weight in pounds (lb). 2. Multiply the number of pounds by 703. ? For example, for a person who weighs 180 lb, multiply that number by 703, which equals 126,540. 3. Measure your height in inches. Then multiply that number by itself to get a measurement called inches squared. ? For example, for a person who is 70 inches tall, the inches squared measurement is 70 inches x 70 inches, which equals 4,900 inches squared. 4. Divide the total from step 2 (number of lb x 703) by the total from step 3 (inches squared): 126,540 ? 4,900 = 25.8. This is your BMI. To calculate your BMI in metric measurements: 1. Measure your weight in kilograms (kg). 2. Measure your height in meters (m). Then multiply that number by itself to get a measurement called meters squared. ? For example, for a person who is 1.75 m tall, the meters squared measurement is 1.75 m x 1.75 m, which is equal to 3.1 meters squared. 3. Divide the number of kilograms (your weight) by the meters squared number. In this example: 70 ? 3.1 = 22.6. This is your BMI. What do the results mean? BMI charts are used to identify whether you are underweight, normal weight, overweight, or obese. The following guidelines will be used: ? Underweight: BMI less than 18.5. ? Normal weight: BMI between 18.5 and 24.9. ? Overweight: BMI between 25 and 29.9. ? Obese: BMI of 30 or above. Keep these notes in mind: ? Weight includes both fat and muscle, so someone with a muscular build, such as an athlete, may have a BMI that is higher than 24.9. In cases like these, BMI is not an accurate measure of body fat. ? To determine if excess body fat is the cause of a BMI of 25 or higher, further assessments may need to be done by a health care provider. ? BMI is usually interpreted in the same way for men and women. Where to find more information For more information about BMI, including tools to quickly calculate your BMI, go to these websites: ? Centers for Disease Control and Prevention: www.cdc.gov ? [place] [employer]: www.heart.org ? National Heart, Lung, and Blood [place]: www.nhlbi.nih.gov Summary ? Body mass index (BMI) is a number that is calculated from a person's weight and height. ? BMI may help estimate how much of a person's weight is composed of fat. BMI can help identify those who may be at higher risk for certain medical problems. ? BMI can be measured using [place] measurements or metric measurements. ? BMI charts are used to identify whether you are underweight, normal weight, overweight, or obese. This information is not intended to replace advice given to you by your health care provider. Make sure you discuss any questions you have with your health care provider. Document Revised: 02/12/2020 Document Reviewed: 12/20/2019 [employer] Patient Education ? 2022 [employer]. [facility] Screenson 09-22-2023 Screens [id number] Normal [facility] Ambulatory Visit Summaryon 0 09-21-2023 Ambulatory Visit Summary AZUL LOGAN :1950 Visit Date:09/21/2023 Ambulatory Visit Instructions Your Diagnosis Annual visit for general adult medical examination with abnormal findings Hypercholesterolemia Primary hypertension Vaccination declined Screening for hepatitis C declined Morbid obesity due to excess calories Your Care Team Attending Physician - Asim Hanks MD Primary Care Physician - Asim Hanks MD This Is Your Medications List amlodipine (amLODIPine 5 mg Tab) Procedures Performed Appendectomy, Colonoscopy, Hysteroscopy. Discharge Vitals Heart Rate (Peripheral) 73 Respiratory Rate 16 Blood Pressure 172/112 Height 147 cm Height 58 in Weight 88 kg Weight 193.6 lb BMI 40.72 What to do next Scheduled Follow-Up Appointments Monday 10:45 AM EDT With: Asim Hanks MD Where: [facility] Normal [address] [place], [place] [id number]- \.br\ Medications\.br\ What How Much When Instructions\.br \ Unchanged amlodipine (amLODIPine 5 mg Tab) See instructions TAKE 1 TABLET BY MOUTH EVERY DAY \.br\ Allergies\.br\ No Known Allergies\.br\ No Known Medication Allergies\.br\ Problems\.br\ Ongoing - Any problem that you are currently receiving treatment for.\.br\ BMI 40.0-44.9, adult\.br\ Fibrocystic breast disease (FCBD)\.br\ Hypercholesterol emia\.br\ Osteoarthritis of multiple joints\.br\ Primary hypertension\.br \ Villous adenoma of colon\.br\ Patient Survey\.br\ You may receive a survey via text or e-mail asking about your office visit. Please share your experience with us by completing your survey. We appreciate your feedback and thank you for choosing us for your care.\.br\ Education Materials\.br\ Hepatitis C Testing\.br\ Why am I having this test?\.br\ Hepatitis C testing is done to check for a liver infection caused by the hepatitis C virus (HCV). A person may have one or more hepatitis C tests done to:\.br\ ? \.br\ Help the health care provider diagnose HCV infection. This is if a person has possible signs of infection or has been exposed to HCV.\.br\ ? \.br\ Find the cause of long-term (chronic) liver disease or abnormal liver function test results.\.br\ ? \.br\ See if a person has had hepatitis C in the past.\.br\ Hepatitis C is usually diagnosed with three blood tests:\.br\ ? \.br\ Anti-HCV test, also called the HCV antibody test.\.br\ ? \.br\ HCV RNA test.\.br\ ? \.br\ HCV genotype test.\.br\ If a person is diagnosed with a current (active) HCV infection, he or she may have another test done to help monitor the condition during treatment. This test is called the quantitative HCV RNA test.\.br\ What is being tested?\.br\ Each HCV test measures the amounts of different substances in your blood.\.br\ ? \.br\ The anti-HCV test checks for proteins that your body makes to fight HCV (antibodies). If you have antibodies to HCV, it means you have been infected with hepatitis C. It does not necessarily mean that you have an active infection.\.br\ ? \.br\ The HCV RNA test checks for genetic material from HCV. This test is done if your HCV antibody test is positive and your health care provider wants to find out if you have an active infection.\.br\ ? \.br\ The HCV genotype test. This test identifies the type (genotype) of virus you have.\.br\ ? \.br\ The quantitative HCV RNA test measures the amount of virus in your blood (viral load).\.br\ What kind of sample is taken?\.br\ \.br\ A blood sample is required for HCV tests. It is usually collected by inserting a needle into a vein in the arm.\.br\ How are the results reported?\.br\ ? \.br\ Anti-HCV test results are reported as either positive or negative for HCV antibodies.\.br\ ? \.br\ HCV RNA test results are reported as either positive or negative for HCV genetic material.\.br\ ? \.br\ HCV genotype test results are reported as which genotype of the virus you have. Genotypes are numbered 1 through 6.\.br\ ? \.br\ Quantitative HCV RNA test results are reported as a number that indicates your viral load. This is given as international units of virus per milliliter of blood (IU/mL).\.br\ ? \.br\ A result of 800,000 IU/mL or greater is considered a high viral load.\.br\ ? \.br\ A result of less than 800,000 IU/mL is considered a low viral load.\.br\ Sometimes, results from the anti-HCV test or the HCV RNA test may report that:\.br\ ? \.br\ HCV antibodies or genetic material are present when they are not present (false-positive result).\.br\ ? \.br\ HCV antibodies or genetic material are not present when they are present (false-negative result).\.br\ What do the results mean?\.br\ For the anti-HCV test:\.br\ ? \.br\ A negative result may mean that you have not been infected with HCV. You may need to have this test done again to confirm this result.\.br\ ? \.br\ A positive result may mean that you have an active HCV infection, or that you have been infected with HCV in the past. An HCV infection may not cause any symptoms, and your body may get rid of the virus without treatment.\.br\ For the HCV RNA test:\.br\ ? \.br\ A negative result means that you do not have an active HCV infection.\.br\ ? \.br\ A positive result means that you have an active HCV infection.\.br\ For the HCV genotype test, knowing the specific genotype you have will help your health care provider recommend the treatment that will work best for you.\.br\ The quantitative HCV RNA test gives your health care provider an idea of how well your treatment is working.\.br\ ? \.br\ If your viral load is high, you may need different treatment.\.br\ ? \.br\ If your viral load is low, your treatment may be working effectively.\.br \ ? \.br\ You may have this test repeated to continue to monitor your treatment.\.br\ Talk with your health care provider about what your results mean.\.br\ Questions to ask your health care provider\.br\ Ask your health care provider, or the department that is doing the test:\.br\ ? \.br\ When will my results be ready?\.br\ ? \.br\ How will I get my results?\.br\ ? \.br\ What are my treatment options?\.br\ ? \.br\ What other tests do I need?\.br\ ? \.br\ What are my next steps?\.br\ Summary\.br\ ? \.br\ Hepatitis C testing is done to check for a liver infection caused by the hepatitis C virus (HCV).\.br\ ? \.br\ Hepatitis C is usually diagnosed with three blood tests and monitored with one test.\.br\ ? \.br\ A blood sample is required for these tests. It is usually collected by inserting a needle into a vein in the arm.\.br\ ? \.br\ Your test results for both the anti-HCV test and the HCV RNA test will be reported as either positive or negative.\.br\ This information is not intended to replace advice given to you by your health care provider. Make sure you discuss any questions you have with your health care provider.\.br\ Document Revised: 04/08/2021 Document Reviewed: 04/08/2021 [facility] Patient Education ? 2022 [employer].br\ Pneumococcal Conjugate Vaccine: What You Need to Know\.br\ 1. Why get vaccinated?\.br\ Pneumococcal conjugate vaccine can prevent pneumococcal disease.\.br\ Pneumococcal disease refers to any illness caused by pneumococcal bacteria. These bacteria can cause many types of illnesses, including pneumonia, which is an infection of the lungs. Pneumococcal bacteria are one of the most common causes of pneumonia.\.br\ Besides pneumonia, pneumococcal bacteria can also cause:\.br\ ? \.br\ Ear infections\.br\ ? \.br\ Sinus infections\.br\ ? \.br\ Meningitis (infection of the tissue covering the brain and spinal cord)\.br\ ? \.br\ Bacteremia (infection of the blood)\.br\ ? \.br\ Anyone can get pneumococcal disease, but children under 2 years old, people with certain medical conditions or other risk factors, and adults 65 years or older are at the highest risk.\.br\ Most pneumococcal infections are mild. However, some can result in long-term problems, such as brain damage or hearing loss. Meningitis, bacteremia, and pneumonia caused by pneumococcal disease can be fatal.\.br\ 2. Pneumococcal conjugate vaccine\.br\ Pneumococcal conjugate vaccine helps protect against bacteria that cause pneumococcal disease. There are three pneumococcal conjugate vaccines (PCV13, PCV15, and PCV20). The different vaccines are [facility] Patient Educationon 09-21-19 Patient Education Infectious Disease Hepatitis C Testing Why am I having this test? Hepatitis C testing is done to check for a liver infection caused by the hepatitis C virus (HCV). A person may have one or more hepatitis C tests done to: ? Help the health care provider diagnose HCV infection. This is if a person has possible signs of infection or has been exposed to HCV. ? Find the cause of long-term (chronic) liver disease or abnormal liver function test results. ? See if a person has had hepatitis C in the past. Hepatitis C is usually diagnosed with three blood tests: ? Anti-HCV test, also called the HCV antibody test. ? HCV RNA test. ? HCV genotype test. If a person is diagnosed with a current (active) HCV infection, he or she may have another test done to help monitor the condition during treatment. This test is called the quantitative HCV RNA test. What is being tested? Each HCV test measures the amounts of different substances in your blood. ? The anti-HCV test checks for proteins that your body makes to fight HCV (antibodies). If you have antibodies to HCV, it means you have been infected with hepatitis C. It does not necessarily mean that you have an active infection. ? The HCV RNA test checks for genetic material from HCV. This test is done if your HCV antibody test is positive and your health care provider wants to find out if you have an active infection. ? The HCV genotype test. This test identifies the type (genotype) of virus you have. ? The quantitative HCV RNA test measures the amount of virus in your blood (viral load). What kind of sample is taken? A blood sample is required for HCV tests. It is usually collected by inserting a needle into a vein in the arm. How are the results reported? ? Anti-HCV test results are reported as either positive or negative for HCV antibodies. ? HCV RNA test results are reported as either positive or negative for HCV genetic material. ? HCV genotype test results are reported as which genotype of the virus you have. Genotypes are numbered 1 through 6. ? Quantitative HCV RNA test results are reported as a number that indicates your viral load. This is given as international units of virus per milliliter of blood (IU/mL). ? A result of 800,000 IU/mL or greater is considered a high viral load. ? A result of less than 800,000 IU/mL is considered a low viral load. Sometimes, results from the anti-HCV test or the HCV RNA test may report that: ? HCV antibodies or genetic material are present when they are not present (false-positive result). ? HCV antibodies or genetic material are not present when they are present (false-negative result). What do the results mean? For the anti-HCV test: ? A negative result may mean that you have not been infected with HCV. You may need to have this test done again to confirm this result. ? A positive result may mean that you have an active HCV infection, or that you have been infected with HCV in the past. An HCV infection may not cause any symptoms, and your body may get rid of the virus without treatment. For the HCV RNA test: ? A negative result means that you do not have an active HCV infection. ? A positive result means that you have an active HCV infection. For the HCV genotype test, knowing the specific genotype you have will help your health care provider recommend the treatment that will work best for you. The quantitative HCV RNA test gives your health care provider an idea of how well your treatment is working. ? If your viral load is high, you may need different treatment. ? If your viral load is low, your treatment may be working effectively. ? You may have this test repeated to continue to monitor your treatment. Talk with your health care provider about what your results mean. Questions to ask your health care provider Ask your health care provider, or the department that is doing the test: ? When will my results be ready? ? How will I get my results? ? What are my treatment options? ? What other tests do I need? ? What are my next steps? Summary ? Hepatitis C testing is done to check for a liver infection caused by the hepatitis C virus (HCV). ? Hepatitis C is usually diagnosed with three blood tests and monitored with one test. ? A blood sample is required for these tests. It is usually collected by inserting a needle into a vein in the arm. ? Your test results for both the anti-HCV test and the HCV RNA test will be reported as either positive or negative. This information is not intended to replace advice given to you by your health care provider. Make sure you discuss any questions you have with your health care provider. Document Revised: 04/08/2021 Document Reviewed: 04/08/2021 Elsevier Patient Education ? 2022 [employer] Pneumococcal Conjugate Vaccine: What You Need to Know 1. Why get vaccinated? Pneumococcal conjugate vaccine can prevent pneumococcal disease. Pneumococ (more content not included)... Normal [facility] Ambulatory Visit Summaryon 0 08-24-2023 Ambulatory Visit Summary AZUL LOGAN :1950 Visit Date:08/24/2023 Ambulatory Visit Instructions Your Diagnosis Hypercholesterolemia Primary hypertension BMI 40.0-44.9, adult Class 3 severe obesity due to excess calories with body mass index (BMI) of 40.0 to 44.9 in adult Nonsmoker Villous adenoma of colon Your Care Team Attending Physician - Asim Hanks MD. Primary Care Physician - Asim Hanks MD. This Is Your Medications List amlodipine (amLODIPine 5 mg Tab) [Image Removed: STOP]Stop taking these medications rosuvastatin (rosuvastatin 10 mg Tab) Procedures Performed Appendectomy, Colonoscopy, Hysteroscopy. Discharge Vitals Temperature (Oral) 36.6 ?C Heart Rate (Peripheral) 78 Respiratory Rate 16 Blood Pressure 136/82 Height 147.3 cm Height 58 in Weight 89.3 kg Weight 196.46 lb BMI 41.16 What to do next Scheduled Follow-Up Appointments 2023 9:30 AM EDT Where: [facility] [place] Normal [facility] BMPon 08-24-2023 Anion gap [Moles/Vol] 12 mmol/L Normal 6-[address] [facility] Comment on above: Performed By: #### 2 189311, 2590318, 0240886, [id number] ####[facility] [address] [place] [address] Calcium [Mass/Vol] 9.3 mg/dL Normal 8.9-11.[address] [facility] Comment on above: Performed By: #### 2 350527, 3109201, 3284386, [id number] ####[facility] [address] [place] [address] Chloride [Moles/Vol] 106 mmol/L Normal 101-111 [facility] Comment on above: Performed By: #### 2 319878, 6758639, 1700842, 15647688 ####[facility] [address] [place] [address] CO2 [Moles/Vol] 26 mmol/L Normal 21-[address] [facility] Comment on above: Performed By: #### 2 916109, 1323804, 1657881, 72967342 ####[facility] [address] [place] [address] Creatinine [Mass/Vol] 0.8 mg/dL Normal 0.5-1.[address] [facility] Comment on above: Performed By: #### 2 704303, 8085339, 8716146, [id number] ####[facility] [address] [place] [address] Glucose [Mass/Vol] 103 mg/dL Normal 55-[address] [facility] Comment on above: Performed By: #### 2 808244, 7908604, 9755679, 18376854 ####[facility] [address] [address] Potassium [Moles/Vol] 3.9 mmol/L Normal 3.5-5.[address] [facility] Comment on above: Performed By: #### 2 842906, 3832080, 2922887, 14563343 ####[facility] [address]N[facility] [address] Sodium [Moles/Vol] 140 mmol/L Normal 135-[address] [facility] Comment on above: Performed By: #### 2 563151, 7519762, 7606890, 87016759 ####[facility] [address] [address] Urea nitrogen [Mass/Vol] 19 mg/dL Normal 5-[address] [facility] Comment on above: Performed By: #### 2 091134, 1748231, 1980838, 77930942 ####[address] [address] Urea nitrogen/Creatinine [Mass ratio] 24 No Units High 10-[address] [facility] Comment on above: Performed By: #### 2 353508, 1150032, 7699258, 21432978 ####[address] [address] CBC w/ Auto Diffon 4 Basophils/100 WBC (Bld) 0.5 % Normal 0.0-2.[address] [facility] Comment on above: Performed By: #### 2 817564, 9108318, 0960885, 97646957 ####[address] [address] Basophils/Leukocytes Auto (Bld) [Pure # fraction] 0.0 E9/L Normal 0.0-0.[address] [facility] Comment on above: Performed By: #### 2 462650, 0834194, 5951763, 79071471 ####[address] [address] Eosinophils (Bld) [#/Vol] 0.1 E9/L Normal 0.0-0.[address] [facility] Comment on above: Performed By: #### 2 460840, 1556708, 1512927, 12824367 ####[address] [address] Eosinophils/100 WBC (Bld) 1.4 % Normal 0.0-8.[address] [facility] Comment on above: Performed By: #### 2 495939, 6133521, 3177673, 18004396 ####[address] [address] Erythrocyte distribution width (RBC) [Ratio] 14.1 % Normal 10.9-14.[address] [facility] Comment on above: Performed By: #### 2 003405, 3787601, 8871789, 48668714 ####[facility] [address] [place] [address] Hematocrit (Bld) [Volume fraction] 44.2 % Normal 34.0-46.[address] [facility] Comment on above: Performed By: #### 2 586912, 2513582, 0246746, 76436131 ####[address] [address] Hemoglobin (Bld) [Mass/Vol] 14.4 g/dL Normal 12.0-16.[address] [facility] Comment on above: Performed By: #### 2 766761, 9423441, 7251978, 69304041 ####[address] [address] Lymphocytes (Bld) [#/Vol] 2.3 E9/L Normal 1.0-4.[address] [facility] Comment on above: Performed By: #### 2 680521, 1901733, 3637259, 69663861 ####[address] [address] Lymphocytes/100 WBC (Bld) 35.3 % Normal 14.0-50.[address] [facility] Comment on above: Performed By: #### 2 600415, 0455587, 7395450, 44834629 ####[address] [address] MCH (RBC) [Entitic mass] 28.4 pg Normal 27.0-34.[address] [facility] Comment on above: Performed By: #### 2 723110, 6925067, 1601584, 21956909 ####[address] [address] MCHC (RBC) [Mass/Vol] 32.6 g/dL Normal 31.4-36.[address] [facility] Comment on above: Performed By: #### 2 067217, 7652554, 8686232, 31124522 ####[address] [address] MCV (RBC) [Entitic vol] 87.0 fL Normal 80.0-100.[address] [facility] Comment on above: Performed By: #### 2 605610, 0164153, 1672518, 49607484 ####[facility] [address] [place] [address] Monocytes (Bld) [#/Vol] 0.6 E9/L Normal 0.2-1.[address] [facility] Comment on above: Performed By: #### 2 588763, 9685212, 0921615, 35104023 ####[address] [address] Neutrophils (Bld) [#/Vol] 3.6 E9/L Normal 2.0-7.[address] [facility] Comment on above: Performed By: #### 2 352774, 5063325, 3578349, 47369535 ####[address] [address] Neutrophils/100 WBC (Bld) 54.1 % Normal 36.0-75.[address] [facility] Comment on above: Performed By: #### 2 502197, 0225700, 1880860, 20073420 ####[address] [address] Platelet mean volume (Bld) [Entitic vol] 10.5 fL Normal 6.4-10.[address] [facility] Comment on above: Performed By: #### 2 211572, 4841063, 5341028, 78118934 ####[address] [address] Platelets (Bld) [#/Vol] 267.0 E9/L Normal 150.0-500.[address] [facility] Comment on above: Performed By: #### 2 321173, 9312942, 3722653, 68818885 ####[address] [address] RBC (Bld) [#/Vol] 5.1 E12/L Normal 4.3-5.[address] [facility] Comment on above: Performed By: #### 2 203114, 7007657, 2909175, 56623569 ####[facility] [address] [place] [address] WBC corrected for nucl RBC Auto (Bld) [#/Vol] 6.6 E9/L Normal 4.0-11.[address] [facility] Comment on above: Performed By: #### 2 579530, 7645990, 8492644, 92455442 ####[facility] [address] [place] [address] CHEMISTRYOrdered By: SYSTEM SYSTEM on 08-24-2023 Anion gap [Moles/Vol] 12 mmol/L Normal 6 - 16 mEq/L [facility] Calcium [Mass/Vol] 9.3 mg/dL Normal 8.9 - 11.1 mg/dL [facility] Chloride [Moles/Vol] 106 mmol/L Normal 101 - 111 mmol/ L [facility] Cholesterol [Mass/Vol] 255 mg/dL High 120 - 200 mg/dL [facility] Cholesterol in HDL [Mass/Vol] 59 mg/dL Invalid Interpretation Code [facility] Comment on above: Result Comment: '>= 60 LOW RISK' '<= 40 HIGH RISK' Cholesterol in LDL [Mass/Vol] 167 mg/dL High <=129mg/dL [facility] Cholesterol in VLDL [Mass/Vol] 33 mg/dL Normal 7 - 40 mg/dL [facility] CO2 [Moles/Vol] 26 mmol/L Normal 21 - 31 mmol/L Remis ol Chem Creatinine [Mass/Vol] 0.8 mg/dL Normal 0.5 - 1.3 mg/dL [facility] eGFR 77 mL/min/1.73 m2 Normal >=59mL/min /1.73 m2 [facility] Glucose [Mass/Vol] 103 mg/dL Normal 55 - 199 mg/dL Re misol Chem Potassium [Moles/Vol] 3.9 mmol/L Normal 3.5 - 5.3 mmol/L [facility] Sodium [Moles/Vol] 140 mmol/L Normal 135 - 145 mmol/L [facility] Triglyceride [Mass/Vol] 166 mg/dL High <=149mg/dL [facility] Urea nitrogen [Mass/Vol] 19 mg/dL Normal 5 - 21 mg/dL [facility] Urea nitrogen/Creatinine [Mass ratio] 24 mg/mg High 10 - 20 [facility] Family Medicine Office/Clini c Noteon 08-24-2023 Family Medicine Office/Clinic Note HPI Staff Azul is a 72 year old female presenting for a yearly check up Acute: burning with urination occasionally couple months ago, not consistant She says she knows she doesn't drink enough trying to increase her water intake Patient is here for follow up on hypertension. How often are you checking your blood pressure? Doesnt check BP at home her monitor isn't working anymore What are your average readings? N/A, Not checking at home Yearly BMP: due Patient is here for follow up on hyperlipidemia: Do you have side effects from the medication? no not taking the crestor anymore Refill needed?: no Yearly Lipid labs: due flu: UTD History of Present Illness -See staff hpi Review of Systems PHQ Score Initial Depression Screen Score: 0 SCORE Physical Exam Vitals & Measurements T: 36.6 ?C(Oral) HR: 78(Peripheral) RR: 16 BP: 136/82 SpO2: 98% HT: 58 in HT: 147.3 cm WT: 89.3 kg WT: 196.46 lb BMI: 41.16 General: alert, no acute distress ENMT: oral mucosa moist, Cardiovascular: regular rate and rhythm, normal peripheral perfusion Respiratory: Lungs CTA, respirations non labored Extremities: no deformity, no trauma Neurological: oriented x 4, LOC appropriate for age, CN II-XII intact, motor strength equal & normal bilaterally, speech normal Abdomen: Soft, Nontender, Non-distended, + BS Assessment/Plan 1. Hypercholesterolemia (E78.00: Pure hypercholesterolemia, unspecified) - Discussed Pros and Cons of medications. - Labs today. - Will discuss further Ordered: Basic Metabolic Panel Body Mass Index (BMI) documented 3008F CBC w/ Auto Diff Current tobacco non-user 1036F Depression Screening Negative 3352F Influenza immunization administered or previously received 4274F Lipid Panel Most recent diastolic blood pressure 80-89 mm Hg 3079F Patient screen for fall risk: no falls in last year or 1 fall with no injury in last year 1101F Systolic BP 130-139 mm Hg (Most Recent) 3075F Urnls Dip Stick Auto w/o Microscopy POC 38230 2. Primary hypertension (I10: Essential (primary) hypertension) - At goal. - Will refill. Ordered: Basic Metabolic Panel Body Mass Index (BMI) documented 3008F CBC w/ Auto Diff Current tobacco non-user 1036F Depression Screening Negative 3352F Influenza immunization administered or previously received 4274F Lipid Panel Most recent diastolic blood pressure 80-89 mm Hg 3079F Patient screen for fall risk: no falls in last year or 1 fall with no injury in last year 1101F Systolic BP 130-139 mm Hg (Most Recent) 3075F Urnls Dip Stick Auto w/o Microscopy POC 57899 3. BMI 40.0-44.9, adult (Z68.41: Body mass index [BMI] 40.0-44.9, adult) - BMI education uploaded - Diet and exercise advised Ordered: Basic Metabolic Panel Body Mass Index (BMI) documented 3008F CBC w/ Auto Diff Current tobacco non-user 1036F Depression Screening Negative 3352F Influenza immunization administered or previously received 4274F Lipid Panel Most recent diastolic blood pressure 80-89 mm Hg 3079F Patient screen for fall risk: no falls in last year or 1 fall with no injury in last year 1101F Systolic BP 130-139 mm Hg (Most Recent) 3075F 4. Class 3 severe obesity due to excess calories with body mass index (BMI) of 40.0 to 44.9 in adult (E66.01: Morbid (severe) obesity due to excess calories) - As above Ordered: Basic Metabolic Panel Body Mass Index (BMI) documented 3008F CBC w/ Auto Diff Current tobacco non-user 1036F Depression Screening Negative 3352F Influenza immunization administered or previously received 4274F Lipid Panel Most recent diastolic blood pressure 80-89 mm Hg 3079F Patient screen for fall risk: no falls in last year or 1 fall with no injury in last year 1101F Systolic BP 130-139 mm Hg (Most Recent) 3075F 5. Nonsmoker (Z78.9: Other specified health status) - Please continue to not smoke Ordered: Basic Metabolic Panel Body Mass Index (BMI) documented 3008F CBC w/ Auto Diff Current tobacco non-user 1036F Depression Screening Negative 3352F Influenza immunization administered or previously received 4274F Lipid Panel Most recent diastolic blood pressure 80-89 mm Hg 3079F Patient screen for fall risk: no falls in last year or 1 fall with no injury in last year 1101F Systolic BP 130-139 mm Hg (Most Recent) 3075F 6. 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 Normal [facility] Comment on above: Result Comment: Elec tronically Signed By: Demario DSOUZA, Asim Palmer\.br\Date and Time Signed: 08/24/23 09:48 EDT HEMATOLOGYOrdered By: SYSTEM SYSTEM on 08-24-2023 Basophils/100 WBC (Bld) 0.5 % Normal 0.0 - 2.0 % Remisol Heme Basophils/Leukocytes Auto (Bld) [Pure # fraction] 0.0 E9/L Normal 0.0 - 0.2 E9/L Remisol Heme Eosinophils (Bld) [#/Vol] 0.1 E9/L Normal 0.0 - 0.5 E9/L Remisol Heme Eosinophils/100 WBC (Bld) 1.4 % Normal 0.0 - 8.0 % Remisol Heme Erythrocyte distribution width (RBC) [Ratio] 14.1 % Normal 10.9 - 14.2 % Rem[facility]e Hematocrit (Bld) [Volume fraction] 44.2 % Normal 34.0 - 46.0 % Remisol Heme Hemoglobin (Bld) [Mass/Vol] 14.4 g/dL Normal 12.0 - 16.0 gm/dL Remisol Heme Lymphocytes (Bld) [#/Vol] 2.3 E9/L Normal 1.0 - 4.0 E9/L Remisol Heme Lymphocytes/100 WBC (Bld) 35.3 % Normal 14.0 - 50.0 % Remisol Heme MCH (RBC) [Entitic mass] 28.4 pg Normal 27.0 - 34.0 pg Remisol Heme MCHC (RBC) [Mass/Vol] 32.6 g/dL Normal 31.4 - 36.0 gm/dL Remisol Heme MCV (RBC) [Entitic vol] 87.0 fL Normal 80.0 - 100.0 fL Rem[facility] Heme Monocytes (Bld) [#/Vol] 0.6 E9/L Normal 0.2 - 1.0 E9/L Remisol Heme Monocytes/100 WBC (Bld) 8.7 % Normal 4.0 - 14.0 % Remisol Heme Neutrophils (Bld) [#/Vol] 3.6 E9/L Normal 2.0 - 7.5 E9/L Remisol Heme Neutrophils/100 WBC (Bld) 54.1 % Normal 36.0 - 75.0 % Remisol Heme Platelet mean volume (Bld) [Entitic vol] 10.5 fL Normal 6.4 - 10.8 fL Rem[facility] Heme Platelets (Bld) [#/Vol] 267.0 E9/L Normal 150.0 - 500.0 E9/L Remisol Heme RBC (Bld) [#/Vol] 5.1 E12/L Normal 4.3 - 5.9 E12/L Re misol Heme WBC corrected for nucl RBC Auto (Bld) [#/Vol] 6.6 E9/L Normal 4.0 - 11.0 E9/L Remisol Heme Lipid Panelon 08-24-2023 Cholesterol [Mass/Vol] 255 mg/dL High 120-[address] [facility] Comment on above: Performed By: #### 2 122838, 3567149, 6078366, 12534323 ####[facility] [address] [place] [address] Cholesterol in HDL [Mass/Vol] 59 mg/dL Invalid Interpretation Code [facility] Comment on above: Result Comment: '>= 60 LOW RISK' '<= 40 HIGH RISK' Performed By: #### 2 955319, 3021268, 3110721, 46897075 ####[facility] [address] [place] [address] Cholesterol in LDL [Mass/Vol] 167 mg/dL High <=[address] [facility] Comment on above: Performed By: #### 2 436982, 5682342, 7509736, 50986412 ####[facility] [address] [place] [address] Cholesterol in VLDL [Mass/Vol] 33 mg/dL Normal 7-[address] [facility] Comment on above: Performed By: #### 2 538109, 1650127, 1156703, 07961783 ####[facility] [address] [facility] [place] [address] Triglyceride [Mass/Vol] 166 mg/dL High <=[address] [facility] Comment on above: Performed By: #### 2 914311, 8007682, 3996781, 90500915 ####[facility] [address] [facility] [place] [address] Patient Educationon 08-24-19 Patient Education Nutrition BMI for Adults What is BMI? Body mass index (BMI) is a number that is calculated from a person's weight and height. BMI can help estimate how much of a person's weight is composed of fat. BMI does not measure body fat directly. Rather, it is an alternative to procedures that directly measure body fat, which can be difficult and expensive. BMI can help identify people who may be at higher risk for certain medical problems. What are BMI measurements used for? BMI is used as a screening tool to identify possible weight problems. It helps determine whether a person is obese, overweight, a healthy weight, or underweight. BMI is useful for: ? Identifying a weight problem that may be related to a medical condition or may increase the risk for medical problems. ? Promoting changes, such as changes in diet and exercise, to help reach a healthy weight. BMI screening can be repeated to see if these changes are working. How is BMI calculated? BMI involves measuring your weight in relation to your height. Both height and weight are measured, and the BMI is calculated from those numbers. This can be done either in [place] ([place] or metric measurements. Note that charts and online BMI calculators are available to help you find your BMI quickly and easily without having to do these calculations yourself. To calculate your BMI in [place] measurements: 1. Measure your weight in pounds (lb). 2. Multiply the number of pounds by 703. ? For example, for a person who weighs 180 lb, multiply that number by 703, which equals 126,540. 3. Measure your height in inches. Then multiply that number by itself to get a measurement called inches squared. ? For example, for a person who is 70 inches tall, the inches squared measurement is 70 inches x 70 inches, which equals 4,900 inches squared. 4. Divide the total from step 2 (number of lb x 703) by the total from step 3 (inches squared): 126,540 ? 4,900 = 25.8. This is your BMI. To calculate your BMI in metric measurements: 1. Measure your weight in kilograms (kg). 2. Measure your height in meters (m). Then multiply that number by itself to get a measurement called meters squared. ? For example, for a person who is 1.75 m tall, the meters squared measurement is 1.75 m x 1.75 m, which is equal to 3.1 meters squared. 3. Divide the number of kilograms (your weight) by the meters squared number. In this example: 70 ? 3.1 = 22.6. This is your BMI. What do the results mean? BMI charts are used to identify whether you are underweight, normal weight, overweight, or obese. The following guidelines will be used: ? Underweight: BMI less than 18.5. ? Normal weight: BMI between 18.5 and 24.9. ? Overweight: BMI between 25 and 29.9. ? Obese: BMI of 30 or above. Keep these notes in mind: ? Weight includes both fat and muscle, so someone with a muscular build, such as an athlete, may have a BMI that is higher than 24.9. In cases like these, BMI is not an accurate measure of body fat. ? To determine if excess body fat is the cause of a BMI of 25 or higher, further assessments may need to be done by a health care provider. ? BMI is usually interpreted in the same way for men and women. Where to find more information For more information about BMI, including tools to quickly calculate your BMI, go to these websites: ? Centers for Disease Control and Prevention: www.cdc.gov ? [place] [employer]: www.heart.org ? National Heart, Lung, and Blood [place]: www.nhlbi.nih.gov Summary ? Body mass index (BMI) is a number that is calculated from a person's weight and height. ? BMI may help estimate how much of a person's weight is composed of fat. BMI can help identify those who may be at higher risk for certain medical problems. ? BMI can be measured using [place] measurements or metric measurements. ? BMI charts are used to identify whether you are underweight, normal weight, overweight, or obese. This information is not intended to replace advice given to you by your health care provider. Make sure you discuss any questions you have with your health care provider. Document Revised: 02/12/2020 Document Reviewed: 12/20/2019 [employer] Patient Education ? 2022 [employer]. [facility] Pre-Visit Planningon 024 Pre-Visit Planning - From: Rik ROSAS, [place] To: Demario DSOUZA, Asim Palmer; Sent: 08/23/2023 12:40:16 EDT Subject: Pre-Visit Planning Due Date/Time: 08/23/2023 12:40:00 EDT Caller Name: AZUL LOGAN; Caller Number: H , M Ia Dr. Hanks, *Based on your response below, can you please update the chronic problem list and address during this visit if appropriate?* During a pre-visit planning chart review, I noted the following documentation in the medical record indicates that this patient had a BMI of 43.13 on 01/02/2023. The National [place] of Health defines obesity as morbid if the patient demonstrates a BMI of over 40, or a BMI of 35 or more and at least one weight-related comorbid condition, such as diabetes or hypertension. Examples of weight-related comorbidities include diabetes, heart disease, stroke, hypertension, and arthritis. Current problem list: Hyperlipidemia, Osteoarthritis Based on your medical judgment, can you further clarify the following diagnosis that correlates with the BMI listed above if the current BMI is still 35 or over? - Morbid obesity (please also include additional diagnosis to reflect current BMI) - Class 3 severe obesity with serious comorbidity in adult (please also include additional diagnosis to reflect current BMI) - Other (please specify): I can update the problem list with your specified response if you would like. In responding to this request, please exercise your independent professional judgment. The fact that a question is asked does not imply that any particular answer is desired or expected. If you have any questions, please feel free to contact me at extension [phone]. Thank you! ESPINOZA Abdi, RN, CCM, CCDS, CCDS-O From: Demario DSOUZA, Asim Palmer To: Rik ROSAS, Beverly; Sent: 08/24/2023 10:25:40 EDT Subject: RE: Pre-Visit Planning Caller Name: AZUL LOGAN; Caller Number: Gale , M addressed Normal [address] [facility] [facility] eGFRon 08-24-2023 eGFR 77 mL/min/1.73 m2 Normal >=[address] [facility] Comment on above: Order Comment: Order added by Discern Expert. Performed By: #### 2 [id number] ####[facility] [address] [place] [address] Outside Mammographyon 2022 Outside Mammography [id number] 20 [id number]#[id number] 0TIFF Normal [facility] GLYCOHEMOGLOBIN A1Con 2022 ADA RECOMMENDATION SEE BELOW Normal [facility] Comment on above: Result Comment: ADA RECOMMENDED LIMIT 4.0 - 6.0 ADA THERAPEUTIC TARGET < 7.0 ACTION SUGGESTED > 7.0 Performed By: #### A 1C #### [facility] [address] [place], [place] [address] Dr. Benitez Prescott Glucose [Mass/Vol] 111 mg/dL Normal [facility] Comment on above: Performed By: #### A 1C #### [facility] [address] [place], [place] [address] Dr. Benitez Prescott HbA1c (Bld) [Mass fraction] 5.5 % Normal 4.5-6.2 [facility] Comment on above: Performed By: #### A 1C #### [facility] [address] [place] [address] [address] Benitez Prescott XR DEXA BONE DENSITYon 06-23 XR DEXA BONE DENSITY EXAMINATION: XR DEX A BONE DENSITY, 06/23/2022 7:57 AM EST HISTORY: Menopause present COMPARISON: None. TECHNIQUE: Dual-energy X-ray absorptiometry (DEXA) bone density study performed for the axial skeleton. FINDINGS: SPINE ANALYSIS: Average bone mineral density is 0.868 g/cm2. T-score (standard deviation relative to young adult mean): -2.8 . HIP ANALYSIS: Lowest bone mineral density is within the femoral neck, 0.750 g/cm2. T-score (standard deviation relative to young adult mean): -2.1 . IMPRESSION: World [employer] Classification: Osteoporosis - High Fracture Risk Electronically authenticated by: JOSE MARADIAGA Date: 2022-06-23 08:41 Normal [facility] PAP ACOG PANEL 2: 30 to 65on 06-22-2022 . . Normal [facility] Comment on above: Performed By: #### [id number] #### [facility] [address] [place] [address] [address] Benitez Prescott Age Gdln ACOG Testing Comment Normal [facility] Comment on above: Result Comment: <21 or >65 or no age provided Performed By: #### 4 [id number] #### [facility] [address] [place] [address] [address] Benitez Prescott DIAGNOSIS: Comment Normal [facility] Comment on above: Result Comment: NEGA TIVE FOR INTRAEPITHELIAL LESION OR MALIGNANCY. REACTIVE CELLULAR CHANGES AND/OR REPAIR ARE PRESENT. CELLULAR CHANGES ASSOCIATED WITH ATROPHY ARE PRESENT. Performed By: #### 4 [id number] #### [facility] [address] [address] [address] Benitez Prescott Electronically signed by: Comment Normal [facility] Comment on above: Result Comment: Sabra Hernandez MD, Pathologist Performed By: #### 4 [id number] #### [facility] [address] [address] [address] Benitez Prescott Methodology: Comment Normal [facility] Comment on above: Result Comment: This liquid based ThinPrep(R) pap test was screened with the use of an image guided system. Performed By: #### 4 [id number] #### [facility] [address] [place] [address] Dr. Benitez Prescott Note: Comment Normal [facility] Comment on above: Result Comment: The Pap smear is a screening test designed to aid in the detection of premalignant and malignant conditions of the uterine cervix. It is not a diagnostic procedure and should not be used as the sole means of detecting cervical cancer. Both false-positive and false-negative reports do occur. . Performed By: #### 4 [id number] #### [facility] [address] [place] [address] Dr. Benitez Prescott Performed by: Comment Normal [facility] Comment on above: Result Comment: Sonny Amador, Buttoner (ASCP) Performed By: #### 4 [id number] #### [facility] [address] [place] [address] Dr. Benitez Prescott Specimen adequacy: Comment Normal [facility] Comment on above: Result Comment: Sati sfactory for evaluation. Endocervical component may not be distinguished in cases of atrophy. Performed By: #### 4 [id number] #### [facility] [address] [place] [address] Dr. Benitez Prescott CBC AUTO DIFFon 06-18-2022 BASO # 0.1 103/ul Normal 0.0-0.1 [facility] Comment on above: Performed By: #### C BC #### [facility] [address] [place] [address] Dr. Benitez Prescott Basophils/100 WBC (Bld) 0.7 % Normal 0.2-2.0 [facility] Comment on above: Performed By: #### C BC #### [facility] [address] [place] [address] Dr. Benitez Prescott EO # 0.1 103/ul Normal 0.0-0.7 [facility] Comment on above: Performed By: #### C BC #### [facility] [address] [place] [address] Dr. Benitez Prescott Eosinophils/100 WBC (Bld) 1.6 % Normal 0.9-7.[address] [facility] Comment on above: Performed By: #### C BC #### [facility] [address] [place] [address] Dr. Benitez Prescott Erythrocyte distribution width (RBC) [Ratio] 13.3 % Normal 11.0-15.[address] [facility] Comment on above: Performed By: #### C BC #### [facility] [address] [place] [address] Dr. Benitez Prescott Hematocrit (Bld) [Volume fraction] 42.1 % Normal 36.0-48.0 [facility] Comment on above: Performed By: #### C BC #### [facility] [address] [place] [address] Dr. Benitez Prescott Hemoglobin (Bld) [Mass/Vol] 14.3 g/dL Normal 12.0-16.0 [facility] Comment on above: Performed By: #### C BC #### [facility] [address] [place] [address] Dr. Benitez Prescott IG # 0.02 10e3/ul Normal 0.00-0.03 [facility] Comment on above: Performed By: #### C BC #### [facility] [address] [place] [address] Dr. Benitez Prescott IG % 0.2 % Normal 0.0-0.[address] [facility] Comment on above: Performed By: #### C BC #### [facility] [address] [place] [address] Dr. Benitez Prescott LYMPH # 3.9 103/ul Critically high 1.2-3.[address] [facility] Comment on above: Performed By: #### C BC #### [facility] [address] [place] [address] Dr. Benitez Prescott Lymphocytes/100 WBC (Bld) 48.3 % Normal 20.5-60.[address] [facility] Comment on above: Performed By: #### C BC #### [facility] [address] [place] [address] Dr. Benitez Prescott MANUAL DIFF REQ NO Normal [facility] Comment on above: Performed By: #### C BC #### [facility] [address] [place] [address] Dr. Benitez Prescott MCH (RBC) [Entitic mass] 28.8 pg Normal 26.7-34.0 [facility] Comment on above: Performed By: #### C BC #### [facility] [address] [place] [address] Dr. Benitez Prescott MCHC (RBC) [Mass/Vol] 34.0 g/dL Normal 29.9-35.[address] [facility] Comment on above: Performed By: #### C BC #### [facility] [address] [place] [address] Dr. Benitez Prescott MCV (RBC) [Entitic vol] 84.9 fL Normal 81.0-99.0 [facility] Comment on above: Performed By: #### C BC #### [facility] [address] [place] [address] Dr. Benitez Prescott MONO # 0.7 103/ul Normal 0.3-0.[address] [facility] Comment on above: Performed By: #### C BC #### [facility] [address] [place] [address] Dr. Benitez Prescott Monocytes/100 WBC (Bld) 8.8 % Normal 1.7-12.[address] [facility] Comment on above: Performed By: #### C BC #### [facility] [address] [place] [address] Dr. Benitez Prescott NEUT # 3.2 103/ul Normal 1.4-6.[address] [facility] Comment on above: Performed By: #### C BC #### [facility] [address] [place] [address] Dr. Benitez Prescott Neutrophils/100 WBC (Bld) 40.4 % Critically low 43.0-75.[address] [facility] Comment on above: Performed By: #### C BC #### [facility] [address] [place] [address] Dr. Benitez Prescott Platelet mean volume (Bld) [Entitic vol] 10.6 fL Normal 9.5-13.[address] [facility] Comment on above: Performed By: #### C BC #### [facility] [address] [place] [address] Dr. Benitez Prescott PLT 309 103/ul Normal 150-[address] [facility] Comment on above: Performed By: #### C BC #### [facility] [address] [place] [address] Dr. Benitez Prescott RBC 4.96 106/ul Normal 4.20-5.[address] [facility] Comment on above: Performed By: #### C BC #### [facility] [address] [place] [address] Dr. Benitez Prescott WBC 8.1 103/ul Normal 4.0-11.[address] [facility] Comment on above: Performed By: #### C BC #### [facility] [address] [place] [address] Dr. Benitez Prescott LIPID PROFILEon 06-18-2022 CHOL-HDL RATIO NORM SEE BELOW Normal [facility] Comment on above: Result Comment: 3.3 - 4.4 LOW RISK 4.4 - 7.1 AVERAGE RISK 7.1 - 11.0 MODERATE RISK >11.0 HIGH RISK Performed By: #### C MP, LIPID #### [facility] [address] [place] [address] Dr. Benitez Prescott Cholesterol [Mass/Vol] 278 mg/dL Critically high <=[address] [facility] Comment on above: Performed By: #### C MP, LIPID #### [facility] [address] [place] [address] Dr. Benitez Prescott Cholesterol in HDL [Mass/Vol] 67 mg/dL Critically high 40-[address] [facility] Comment on above: Performed By: #### C MP, LIPID #### [facility] [address] [place] [address] Dr. Benitez Prescott Cholesterol in LDL [Mass/Vol] 171.4 mg/dL Normal [facility] Comment on above: Performed By: #### C MP, LIPID #### [facility] [address] [place] [address] [address] Benitez Prescott Cholesterol.total/Ch olesterol in HDL [Mass ratio] 4.1 {ratio} Normal [facility] Comment on above: Performed By: #### C MP, LIPID #### [facility] [address] [place] [address] [address] Benitez Prescott HDL NORMAL > or = 60 mg/dl - LO W CARDIOVASCULAR RISK <40 mg/dl - HIGH CARDIOVASCULAR RISK Normal [facility] Comment on above: Performed By: #### C MP, LIPID #### [facility] [address] [place] [address] Dr. Benitez Prescott LDL CALC NORMAL SEE BELOW Normal [facility] Comment on above: Result Comment: <100 mg/dl OPTIMAL 100 - 129 mg/dl NEAR OR ABOVE OPTIMAL 130 - 159 mg/dl BORDERLINE HIGH 160 - 189 mg/dl HIGH >190 mg/dl VERY HIGH Performed By: #### C MP, LIPID #### [facility] [address] [place] [address] Dr. Benitez Prescott Triglyceride [Mass/Vol] 198 mg/dL Critically high <=150 [facility] Comment on above: Performed By: #### C MP, LIPID #### [facility] [address] [place] [address] Dr. Benitez Prescott VLDL CALC 39.6 mg/dL Normal [facility] Comment on above: Performed By: #### C MP, LIPID #### [facility] [address] [place] [address] Dr. Benitez Prescott PROF 14(COMP METB)on 023 Albumin [Mass/Vol] 3.8 g/dL Normal 3.4-5.0 [facility] Comment on above: Performed By: #### C MP, LIPID #### [facility] [address] [place] [address] Dr. Benitez Prescott Albumin/Globulin [Mass ratio] 1.0 {ratio} Normal [facility] Comment on above: Performed By: #### C MP, LIPID #### [facility] [address] [place] [address] Dr. Benitez Prescott ALP [Catalytic activity/Vol] 69 U/L Normal 46-[address] [facility] Comment on above: Performed By: #### C MP, LIPID #### [facility] [address] [place] [address] Dr. Benitez Prescott ALT [Catalytic activity/Vol] 24 U/L Normal 14-59 [facility] Comment on above: Performed By: #### C MP, LIPID #### [facility] [address] [place] [address] Dr. Benitez Prescott Anion gap [Moles/Vol] 11.3 mmol/L Normal [facility] Comment on above: Performed By: #### C MP, LIPID #### [facility] [address] [place] [address] Dr. Benitez Prescott AST [Catalytic activity/Vol] 16 U/L Normal 15-37 [facility] Comment on above: Performed By: #### C MP, LIPID #### [facility] [address] [place] [address] Dr. Benitez Prescott Bilirubin [Mass/Vol] 0.7 mg/dL Normal 0.2-1.0 [facility] Comment on above: Performed By: #### C MP, LIPID #### [facility] [address] [place] [address] Dr. Benitez Prescott Calcium [Mass/Vol] 9.2 mg/dL Normal 8.5-10.[address] [facility] Comment on above: Performed By: #### C MP, LIPID #### [facility] [address] [place] [address] Dr. Benitez Prescott Chloride [Moles/Vol] 104 mmol/L Normal 98-[address] [facility] Comment on above: Performed By: #### C MP, LIPID #### [facility] [address] [place] [address] Dr. Benitez Prescott CO2 [Moles/Vol] 29.7 mmol/L Normal 21.0-32.[address] [facility] Comment on above: Performed By: #### C MP, LIPID #### [facility] [address] [place] [address] Dr. Benitez Prescott Creatinine [Mass/Vol] 0.82 mg/dL Normal 0.55-1.02 [facility] Comment on above: Performed By: #### C MP, LIPID #### [facility] [address] [place] [address] Dr. Benitez Prescott EGFR-AF KOSOVAN >60 Normal >=60 [facility] Comment on above: Performed By: #### C MP, LIPID #### [facility] [address] [place] [address] Dr. Benitez Prescott EGFR-NON AF KOSOVAN >60 Normal >=60 [facility] Comment on above: Performed By: #### C MP, LIPID #### [facility] [address] [place] [address] Dr. Benitez Prescott Globulin (S) [Mass/Vol] 3.7 g/dL Normal [facility] Comment on above: Performed By: #### C MP, LIPID #### [facility] [address] [place] [address] Dr. Benitez Prescott Glucose [Mass/Vol] 128 mg/dL Critically high 74-106 [facility] Comment on above: Performed By: #### C MP, LIPID #### [facility] [address] [place] [address] Dr. Benitez Prescott Potassium [Moles/Vol] 4.0 mmol/L Normal 3.5-5.1 [facility] Comment on above: Performed By: #### C MP, LIPID #### [facility] [address] [place] [address] Dr. Benitez Prescott Protein [Mass/Vol] 7.5 g/dL Normal 6.4-8.[address] [facility] Comment on above: Performed By: #### C MP, LIPID #### [facility] [address] [place] [address] Dr. Benitez Prescott Sodium [Moles/Vol] 141 mmol/L Normal 136-145 [facility] Comment on above: Performed By: #### C MP, LIPID #### [facility] [address] [place] [address] Dr. Benitez Prescott Urea nitrogen [Mass/Vol] 15.0 mg/dL Normal 7.0-18.0 [facility] Comment on above: Performed By: #### C MP, LIPID #### [facility] [address] [address] [address] Benitez Prescott Urea nitrogen/Creatinine [Mass ratio] 18.3 mg/mg Normal [facility] Comment on above: Performed By: #### C MP, LIPID #### [facility] [id number] Benitez Prescott MG MAMM SCREEN 3D BEENA CADon 05-17-2022 MG MAMM SCREEN 3D BEENA CAD Patient: AZUL LOGAN Exam Date: 05/17/2022 : 1950 Gender:F Ordering : DR YOANNA CORONEL . Admission #: [id number] Family : Order #: [id number] CLICK HERE TO VIEW EXAM RADIOLOGY REPORT PROCEDURE: MAMMOGRAM SCREENING 3D BILATERAL CAD COMPARISON: MG MAMM SCREEN BEENA W CAD, 03/09/2017. MG MAMM BEENA SCRN W CAD DIG, 04/28/2015. DIGITIZED_MAMMO, 09/29/2008. MG MAMM SCREEN BEENA W CAD, 11/25/2019. INDICATIONS: Screening mammography Calculator Name NCI Breast Cancer Risk Assessment Tool 5 Year Breast Cancer Risk 1.40% Lifetime Breast Cancer Risk 3.60% Personal Breast Cancer No Personal Ovarian Cancer No Treatments None Family Cancers Aunt-maternal with colon cancer at age 60; Aunt-maternal with breast cancer at age 60. LOCATION: [facility] BREAST COMPOSITION: Heterogeneously dense,which may obscure small masses. FINDINGS: DIAGNOSTIC CATEGORY 1--NEGATIVE. RIGHT BREAST: No significant suspicious finding. No significant change has occurred. LEFT BREAST: No significant suspicious finding. No significant change has occurred. RECOMMENDATIONS: ROUTINE MAMMOGRAM AND CLINICAL EVALUATION IN 12 MONTHS. PLEASE NOTE: A NORMAL MAMMOGRAM DOES NOT EXCLUDE THE POSSIBILITY OF BREAST CANCER. A CLINICALLY SUSPICIOUS PALPABLE LUMP SHOULD BE BIOPSIED. Dictated by: Jose Maradiaga M.D. on 05/17/2022 at 14:56 Approved by: Jose Maradiaga M.D. on 05/17/2022 at 15:04 Normal [facility] CYTOLOGYon 02-28-2017 CYTOLOGY Specimen #: [id number] Physician: YOANNA GRIMESPECIMEN SUBMITTEDA: CERVICAL, SCREENING, FLUID _FINAL DIAGNOSISA. CERVICAL, SCREENING, FLUIDSatisfactory for interpretation.Negativ e for intraepithelial lesion or malignancy.This specimen has been analyzed by the ThinPrep Imaging System, anaSaatchi Arted imaging and review system, which assists the laboratory inevaluating cells on ThinPrep Pap tests. Following automated imaging,selected boyle from every slide are reviewed by a delivery mgr.ROMAINE Gibbs (ASCP) (Electronic Signature) _CLINICAL DATA Menstrual History:Post-Menopausa lClinical History:ROUTINESTAINSA : CERVICAL, SCREENING, FLUID THIN PREP GYNJennelvia Montoya M.D., Laboratory DirectorPatient ID #: [id number] of Report: 03/02/2017Date of Procedure: 02/28/2017Date of Receipt: 03/01/2017Submitted by: YOANNA CORONELLocation: Diagnostic interpretation performed at [facility], [address] [place] [address].The Pap Smear is a screening test for cervical cancer. False negativeresults occur with all screening tests, emphasizing the need forrescreening at recommended intervals, and clinical correlation. Normal [facility] Comment on above: Performed By: #### C ####See report for performing lab information. Encounters Encounter Date Encounter Type Care Provider Facility Start: 09-26-2024 [facility] Asim Hanks Facility :[facility] Start: 03-26-2024 End: 03-26-2024 [facility] Asim Hanks Facility:[facility] Start: 02-12-2024 End: 02-12-2024 ambulatory Asim Hanks Facility:[facility] [place] [facility] Start: 10-25-2023 End: 10-25-2023 ambulatory Asim Hanks [facility] Start: 09-25-2023 End: 09-25-2023 ambulatory As[facility] Hanks [facility] Start: 09-21-2023 End: 09-21-2023 ambulatory Asim Hanks [facility] Start: 08-24-2023 End: 08-24-2023 Lab Drop off Asim Hanks [facility] Start: 08-24-2023 End: 08-24-2023 ambulatory Asim Hanks Facility:[facility] Start: 06-24-2022 End: 06-25-[address] YOANNA CORONEL Facility:[facility] Start: 06-23-2022 End: 06-24-[address] YOANNA CORONEL Facility:[facility] Start: 06-18-2022 End: 06-19-[address] YOANNA CORONEL Facility:[facility] Start: 06-17-2022 End: 06-17-[address] YOANNA CORONEL Facility:[facility] Start: 05-17-2022 End: 05-18-[address] YOANNA CORONEL Facility:[facility] Procedures Date Procedure Procedure Detail Performing Clinician Appendectomy Asim Hanks Colonoscopy Asim Hanks Comment on above: 2006, 2009, 2016, re peat 5 years Hysteroscopy Asim Hanks Comment on above: w/ D&C 05/2004 Immunizations Immunization Date Immunization Notes Care Provider Fa cility 04-07-2021 SARS-CoV-2 (COVID-19 ) mRNA BNT-162b2 vax Asim Hanks [facility] Comment on above: Result Comment: 2022: [id number] 08-04-2020 SARS-CoV-2 (COVID-19 ) mRNA BNT-162b2 vax Asim Hanks [facility] Comment on above: Result Comment: 2022: [id number] 07-14-2020 SARS-CoV-2 (COVID-19 ) mRNA BNT-162b2 jo Hanks [facility] Comment on above: Result Comment: 2022: [id number] Payers Date Payer Category Payer Medicare [id number] 1960 Unknown [id number] 1950 Unknown [id number] 2.16.84 [id number] 1950 Unknown [id number] 2.16.84 [id number] 1950 Unknown [id number] 2.16.84 [id number] 1950 Unknown [id number] 2.16.84 [id number] 1950 Unknown [id number] 2.16.84 0.1.134534.3.579.2.593 1950 Unknown [id number] 2.16.8 [id number] 1950 Unknown [id number] 2.16.8 40.1.744057.3.579.2.727 1950 Unknown [id number] 2.16.8 40.1.795610.3.579.2.727 1950 Unknown [id number] 2.16.8 40.1.133142.3.579.2.727 1950 Unknown [id number] 2.16.8 40.1.559798.3.579.2.727 1950 Unknown [id number] 2.16.8 40.1.833293.3.579.2.727 1950 Unknown [id number] 2.16.8 40.1.655000.3.579.2.727 1950 Unknown [id number] 2.16.8 40.1.382801.3.579.2.727 1950 Unknown [id number] 2.16.8 40.1.294213.3.579.2.727 Social History Date Type Detail Facility Start: 08-24-2023 Tobacco smoking status Never s moked tobacco (finding) [facility] Tobacco smoking status Never [facility] Sex Assigned At Female [facility] Clinical Note 03-26-2024 Note Date & Type Note Facility 03-26-2024 Note Patient Education Nutrition BMI for Adults Body mass index (BMI) is a number found using a person's weight and height. BMI can help tell how much of a person's weight is made up of fat. BMI does not measure body fat directly. It is used instead of tests that directly measure body fat, which can be difficult and expensive. What are BMI measurements used for? BMI is useful to: ? Find out if your weight puts you at higher risk for medical problems. ? Help recommend changes, such as in diet and exercise. This can help you reach a healthy weight. BMI screening can be done again to see if these changes are working. How is BMI calculated? Your height and weight are measured. The BMI is found from those numbers. This can be done with U.S. or metric measurements. Note that charts and online BMI calculators are available to help you find your BMI quickly and easily without doing these calculations. To calculate your BMI in U.S. measurements: 1. Measure your weight in pounds (lb). 2. Multiply the number of pounds by 703. ? So, for an adult who weighs 150 lb, multiply that number by 703: 150 x 703, which equals 105,450. 3. Measure your height in inches. Then multiply that number by itself to get a measurement called inches squared. ? So, for an adult who is 70 inches tall, the inches squared measurement is 70 inches x 70 inches, which equals 4,900 inches squared. 4. Divide the total from step 2 (number of lb x 703) by the total from step 3 (inches squared): 105,450 ? 4,900 = 21.5. This is your BMI. To calculate your BMI in metric measurements: 1. Measure your weight in kilograms (kg). ? For this example, the weight is 70 kg. 2. Measure your height in meters (m). Then multiply that number by itself to get a measurement called meters squared. ? So, for an adult who is 1.75 m tall, the meters squared measurement is 1.75 m x 1.75 m, which equals 3.1 meters squared. 3. Divide the number of kilograms (your weight) by the meters squared number. In this example: 70 ? 3.1 = 22.6. This is your BMI. What do the results mean? BMI charts are used to see if you are underweight, normal weight, overweight, or obese. The following guidelines will be used: ? Underweight: BMI less than 18.5. ? Normal weight: BMI between 18.5 and 24.9. ? Overweight: BMI between 25 and 29.9. ? Obese: BMI of 30 or above. BMI is a tool and cannot diagnose a condition. Talk with your health care provider about what your BMI means for you. Keep these notes in mind: ? Weight includes fat and muscle. Someone with a muscular build, such as an athlete, may have a BMI that is higher than 24.9. In cases like these, BMI is not a correct measure of body fat. ? If you have a BMI of 25 or higher, your provider may need to do more testing to find out if excess body fat is the cause. ? BMI is measured the same way for males and females. Females usually have more body fat than males of the same height and weight. Where to find more information For more information about BMI, including tools to quickly find your BMI, go to: ? Centers for Disease Control and Prevention: cdc.gov ? [place] [employer]: heart.org ? National Heart, Lung, and Blood [place]: nhlbi.nih.gov This information is not intended to replace advice given to you by your health care provider. Make sure you discuss any questions you have with your health care provider. Document Revised: 02/09/2023 Document Reviewed: 02/02/2023 Elsevier Patient Education ? [address] [employer] [facility] Evaluation + Plan note Note Date & Type Note Facility Evaluation + Plan note Future Appointments Appointment Date:09/21/2023 09:30:00 AM Scheduled Provider: Location:[facility] [place] Appointment Type:FM Medicare Wellness Subsequent [facility] Hospital course Narrative Note Date & Type Note Facility Hospital course Narrative No data available for this section [facility] Hospital Discharge instructions Note Date & Type Note Facility Hospital Discharge instructions No data available for this section [facility] Progress note Note Date & Type Note Facility Progress note No data available for this section [facility] Summary Purpose Family History No Family History Records FoundNo Family History Records Found No data available for this section No Family History Records Found Advance Directives No Advanced Directives Records FoundNo Advanced Directives Records FoundNo Advanced Directives Records Found Additional Source Comments INFORMATION SOURCE (unrecogn ized section and content) DATE CREATED AUTHOR 11/29/2017 [facility] DATE CREATED AUTHOR AUTHOR'S ORGANIZ ATION 06/28/2022 [facility] DATE CREATED AUTHOR AUTHOR'S ORGANIZ ATION 03/27/2024 [facility] Patient Care team informatio n (unrecognized section and content) Personnel Name: Demario DSOUZA, Asim Palmer Address: Address: [address] [place], [place] [address] FOR RECORDS PERTAINING TO PATIENTS WHO ARE OR HAVE BEEN ENROLLED IN A CHEMICAL DEPENDENCY/SUBSTANCEABUSE PROGRAM, SOME INFORMATION MAY BE OMITTED. This clinical summary was aggregated from multiple sources. Caution should be exercised in using it in the provision of clinical care. This summary normalizes information from multiple sources, and as a consequence, information in this document may materially change the coding, format and clinical context of patient data. In addition, data may be omitted in some cases. CLINICAL DECISIONS SHOULD BE BASED ON THE PRIMARY CLINICAL RECORDS. [facility]. provides no warranty or guarantee of the accuracy or completeness of information in this document.
== END 2024-05-20 09:57 | disposition home or self-care (01) ==
LOC: MAMMO 09:56
PROVIDERS: PCP Family Medicine; Visit Provider Family Medicine
DX: Z12.31 Encounter for screening mammogram for malignant neoplasm of breast (principal); Z80.0 Family history of malignant neoplasm of digestive organs; Z80.3 Family history of malignant neoplasm of breast
CPT/HCPCS: 77063; 77067

== ENCOUNTER 2024-10-08 08:23 | Outpatient (OUT) | payer MEDICARE, OTHER, SELFPAY | END 2024-10-08 08:24 | disposition home or self-care (01) | LOC: RAD 08:26 | PROVIDERS: PCP Family Medicine; Visit Provider Family Medicine | DX: Z00.00 Encounter for general adult medical examination without abnormal findings (principal); M85.80 Other specified disorders of bone density and structure, unspecified site; M81.0 Age-related osteoporosis without current pathological fracture | CPT/HCPCS: 77080 ==

== ENCOUNTER 2024-11-21 09:22 | Outpatient (OUT) | payer MEDICARE, OTHER, SELFPAY ==
--- OUTSIDE RECORDS SUMMARY | 2024-11-21 09:36 | XMS_ITS | CCD ---
Author Organization [facility] CliniSyny Care Team Providers Care Factory Maintenance Manager Name Role Phone DR YOANNA CORONEL Consulting Unavailable HOMER, DR YOANNA Pitts Primary Care Unavailable HOMER, DR YOANNA Pitts Admitting Unavailable CORONEL, DR YOANNA Pitts Attending Unavailable Zick, DR Garcia Consulting Unavailable HOMER, DR YOANNA Pitts Consulting Unavailable HOMER, [...] HOMER, DR YOANNA Pitts Admitting Unavailable Asim Hanks Primary Care Physician NON STAFF Primary Care Provider UnavailAleida Robles APRN Attending Provider [phone] Aleida Frye Attending Unavailable Aleida Frye Admitting Unavailable NON STAFF Primary Care Unavailable Asim Hanks Attending Unavailable Asim Hanks Admitting Unavailable MD Asim Hanks Attending Unavailable MD Asim Hanks Attending Unavailable MD Asim Hanks Attending Unavailable MD Asim Hanks Attending Unavailable MD Asim Hanks Attending Unavailable MD Asim Hanks Attending Unavailable MD Asim Hanks Attending Unavailable MD Asim Hanks Admitting Unavailable NILTristen Lyn R Attending Unavailable MD Asim Hanks Referring Unavailable Allergies Allergy Classification Reported Allergen(s) Allergy Type Date of Onset Reaction(s) Facility (4 sources) HMG-CoA reductase inhibitor; Translations: [statins] Drug allergy Muscle pain (finding) [facility] Arnie (2 sources) No Known Medication Allergies; Translations: [No Known Medication Allergies] Propensity to adverse reactions (disorder) [facility] Repository Medications Current Medications Medication Drug Class(es) Dates Sig (Normalized) Sig (Original) amLODIPine 10 mg oral tablet (5 sources) Dihydropyridine Calcium Channel Liliana Start: 09-26-2024 take 1 tablet by mouth once daily amLODIPine 10 mg Tab 10 mg = 1 tab(s), Oral, Daily, # 90 tab(s), Refills(s) 1, Pharmacy: [facility]/pharmacy #[id number], 147, cm, 09/26/24 9:51:00 EDT, Height/Length Dosing, 87.1, kg, 09/26/24 9:51:00 EDT, Weight Dosing Start Date: 09/26/24 Status: Ordered Quantity: 90.0 Unit: tab(s) Repeat number: 2 Start: 07-20-2024 take 1 tablet by vickie th once daily Amlodipine 10 mg tablet Active 10 MG PO Daily July 20, 2024 12:00am Start: 08-24-2023 take 1 tablet by vickie th once daily amLODIPine 5 mg Tab See Instructions, TAKE 1 TABLET BY MOUTH EVERY DAY, # 90 tab(s), Refills(s) 1, Pharmacy: [facility]/pharmacy #[id number], 147.3, cm, 08/24/23 9:10:00 EDT, Height/Length Dosing, 89.3, kg, 08/24/23 9:10:00 EDT, Weight Dosing Start Date: 08/24/23 Status: Ordered [place] pre and pro biotic (2 sources) Start: 09-26-2024 [place] pre and pro biotic [place] pre and pro biotic, See Instructions Start Date: 09/26/24 Status: Ordered Repeat number: 1 Problems Problem Classification Problem Date Documented Date Episodic/Chronic Diabetes mellitus without complication (4 sources) Hyperglycemia, unspecified; Translations: [HYPERGLYCEMIA UNSPECIFIED] Onset: 06-24-2022 Episodic Disorders of lipid metabolism (7 sources) Pure hypercholesterolemia, unspecified; Translations: [Hypercholesterolemia ] Onset: 06-18-2022 Chronic Essential hypertension (5 sources) Essential hypertension; Translations: [Hypertensive disorder] 01-02-2023 Chronic Malaise and fatigue (1 source) Other fatigue; Translations: [OTHER FATIGUE] Onset: 06-25-2022 Episodic Nonmalignant breast conditions (3 sources) Fibrocystic disease of breast 12-15-2022 Chronic Osteoarthritis (3 sources) Osteoarthritis of multiple joints 01-02-2023 Chronic Comment on above: left knee Osteoporosis (3 sources) Age-related osteoporosis without current pathological fracture; Translations: [Osteoporosis] Onset: 06-28-2022 09-25-2023 Chronic Other and unspecified benign neoplasm (2 sources) Villous adenoma of colon 12-15-2022 Episodic Other non-traumatic joint disorders (2 sources) Pain in elbow; Translations: [Pain in right elbow] 07-20-2024 Episodic Other non-traumatic joint disorders (1 source) Pain in right elbow; Translations: [Pain in right elbow] Onset: 07-20-2024 Episodic Other nutritional; endocrine; and metabolic disorders (2 sources) Body mass index 40+ - severely obese 09-21-2023 Chronic Other nutritional; endocrine; and metabolic disorders (2 sources) Obese class III 09-25-2024 Chronic Other screening for suspected conditions (not mental disorders or infectious disease) (10 sources) Encounter for screening for osteoporosis; Translations: [...] MALIG NEOPLASM OF BREAST] Onset: 05-22-2022 Episodic Sprains and strains (2 sources) Strain of muscle and/or tendon of elbow region; Translations: [Strain of unspecified muscles, fascia and tendons at forearm level, left arm, initial encounter] 07-20-2024 Episodic Unclassified (2 sources) Non-smoker 09-26-2024 Unclassified (2 sources) Statin not tolerated (context-dependent category) 09-25-2023 Unclassified (1 source) Patient encounter status 11-12-2024 Results Test Name Value Interpretation Reference Range Facility Ambulatory Visit Summaryon 0 11-12-2024 Ambulatory Visit Summary Ambulatory Visit Summary AZUL MICHELLE :1950 Visit Date:11/12/2024 Ambulatory Visit Instructions Your Diagnosis Screening for malignant neoplasm of colon Your Care Team Attending Physician - FRANCHESCA DSOUZA, Tristen Ohara Primary Care Physician - Asim Hanks MD Referring Physician - Asim Hanks MD This Is Your Medications List Contact prescribing physician if questions or concerns Non-Formulary Medication (spring pre and pro biotic) amlodipine (amLODIPine 10 mg Tab) Procedures Performed Colonoscopy (04/22/2015), Colonoscopy (03/18/2010), Colonoscopy (06/29/2006), Appendectomy, Hysteroscopy. Discharge Vitals Heart Rate (Peripheral) 72 Respiratory Rate 16 Blood Pressure 126/78 Height 147 cm Height 58 in Weight 86.9 kg Weight 191.581 lb BMI 40.21 What to do next Scheduled Follow-Up Appointments 2024 11:00 AM EDT With: Asim Hanks MD Where: [address] [address]- Monday2025 11:00 AM EDT With: Where: [address] [id number] Medications What How Much When Instructions Unchanged amlodipine (amLODIPine 10 mg Tab) 1 Tablets By Mouth Every day Contact prescribing physician if questions or concerns Unchanged Non-Formulary Medication (spring [place] pre and pro biotic) See instructions Contact prescribing physician if questions or concerns Allergies statins (Muscle ache) Problems Ongoing - Any problem that you are currently receiving treatment for. BMI 40.0-44.9, adult Class 3 obesity Fibrocystic breast disease (FCBD) Hypercholesterolemia Morbid obesity with BMI of 40.0-44.9, adult Nonsmoker Osteoarthritis of multiple joints Osteoporosis Primary hypertension Screening for malignant neoplasm of colon Statin intolerance Patient Survey You may receive a survey via text or e-mail asking about your office visit. Please share your experience with us by completing your survey. We appreciate your feedback and thank you for choosing us for your care. Normal [facility] Ambulatory Visit Summaryon 0 10-01-2024 Ambulatory Visit Summary Ambulatory Visit Summary AZUL MICHELLE :1950 Visit Date:09/26/2024 Ambulatory Visit Instructions Your Diagnosis Encounter for Medicare annual examination with abnormal findings Hypercholesterolemia Statin intolerance Osteoporosis Ovarian failure due to menopause Primary hypertension Encounter for hepatitis C screening test for low risk patient Screening for malignant neoplasm of colon Advanced directives, counseling/discussion Morbid obesity with BMI of 40.0-44.9, adult Tests Performed BD Bone Density DEXA -- Results Pending -- Please visit your patient portal for your results or contact your primary care physician. Your Care Team Attending Physician - Asim Hanks MD. Primary Care Physician - Asim Hanks MD. This Is Your Medications List Non-Formulary Medication (spring pre and pro biotic) amlodipine (amLODIPine 10 mg Tab) Procedures Performed Appendectomy, Colonoscopy, Hysteroscopy. Discharge Vitals Heart Rate (Peripheral) 72 Blood Pressure 170/100 Height 147 cm Height 58 in Weight 87.1 kg Weight 192.022 lb BMI 40.31 What to do next Scheduled Follow-Up Appointments Monday2025 11:00 AM EDT Where: [place] [address]- You Need to Complete the Following Comprehensive Metabolic Panel, Blood, Routine collect, 09/26/24, Order for future visit, Lab Collect, Primary hypertension, Not Required, Print Label By Order Location HCV Antibody RFX to Quant PCR, Blood, Routine collect, 09/26/24, Order for future visit, Lab Collect, Encounter for hepatitis C screening test for low risk patient, Not Required, Print Label By Order Location Lipid Panel, Blood, Routine collect, 09/26/24, Order for future visit, Lab Collect, Hypercholesterolemia, Required & Missing, Print Label By Order Location Urine Microalbumin/Creatinine Ratio, Urine, Routine collect, 09/26/24, Order for future visit, Nurse collect, Primary hypertension, Not Required, Print Label By Order Location Medications What How Much When Instructions Unchanged amlodipine (amLODIPine 10 mg Tab) 1 Tablets By Mouth Every day Unchanged Non-Formulary Medication (spring pre and pro biotic) See instructions Allergies statins (Muscle ache) Problems Ongoing - Any problem that you are currently receiving treatment for. BMI 40.0-44.9, adult Class 3 obesity Fibrocystic breast disease (FCBD) Hypercholesterolemia Nonsmoker Osteoarthritis of multiple joints Osteoporosis Primary hypertension Serous otitis media Sinusitis Statin intolerance Villous adenoma of colon Patient Survey You may receive a survey via text or e-mail asking about your office visit. Please share your experience with us by completing your survey. We appreciate your feedback and thank you for choosing us for your care. Normal [facility] Family Medicine Office/Clini c Noteon 10-01-2024 Family Medicine Office/Clinic Note Family Medicine Office/Clinic Note Chief Complaint Subsequent Medicare Wellness History of Present Illness Covid-19, MERS, Ebola [...] Airborne, Droplet Precautions for MERS/COVID-19 : N/A Alicia Jara 09/26/2024 9:32 EDT Medicare/Medicaid Summary Chief Complaint : Subsequent Medicare Wellness Patient Counseled : Nutrition, Physical activity, Elevated BMI Height/Length Measured : 147 cm(Converted to: 4 ft 10 in, 57.87 in) Weight Measured : 87.1 kg(Converted to: 192 lb 0 Ounces, 192.023 lb) Body Mass Index Measured : 40.31 kg/m2 Height in Inches : 58 in Weight in Pounds : 192.022 lb Systolic Blood Pressure : 170 mmHg (HI) Diastolic Blood Pressure : 100 mmHg (HI) Blood Pressure Location : Right arm Blood Pressure Position : Sitting O2 Sat Resting/Exertion Alpha : Resting Peripheral Pulse Rate : 72 bpm SpO2 : 94 % Pain Present : No actual or suspected pain Alicia Jara 09/26/2024 9:32 EDT Hearing and Vision Screening FT FT Whisper Test Comments : no hearing deficits Vision Screen Comments : wears reading glasses. [facility] [place]. Alicia Jara 09/26/2024 9:32 EDT Advance Directive FT Advance Directive : No Patient Wishes to Receive Further Information on Advance Directives : Yes Organ Donation Consent : No Alicia Jara - 09/26/2024 9:32 EDT Procedures / Surgeries FT - Procedure History (As Of: 09/26/2024 09:51:28 EDT) Anesthesia Minutes: 0 ; Procedure Name: Appendectomy ; Procedure Minutes: 0 ; Last Reviewed Dt/Tm: 09/26/2024 09:39:58 EDT Anesthesia Minutes: 0 ; Procedure Name: Hysteroscopy ; Procedure Minutes: 0 ; Comments: 12/15/2022 13:16 EDT - Jeannette Santos LPN w/ D&C 05/2004 ; Last Reviewed Dt/Tm: 09/26/2024 09:39:58 EDT Anesthesia Minutes: 0 ; Procedure Name: Colonoscopy ; Procedure Minutes: 0 ; Comments: 12/15/2022 13:15 EDT - Jeannette Santos LPN 2006, 2009, 2015, repeat 5 years ; Last Reviewed Dt/Tm: 09/26/2024 09:39:58 EDT Family History Family History (As Of: 09/26/2024 09:51:28 EDT) Father: Relation: Father ; Gender: Male ; Nomenclature: Heart disease ; Value: Positive Medicare/Medicaid Social History FT Social History (As Of: 09/26/2024 09:51:28 EDT) Alcohol: Low Risk Never Comments: 09/26/2024 9:40 - Alicia Jara: denies use. (Last Updated: 09/26/2024 09:40:36 EDT by Alicia Jara) Tobacco: Denies Tobacco Use Never (less than 100 in lifetime) Tobacco Use:. Comments: 09/26/2024 9:40 - Alicia Jara: denies use. (Last Updated: 09/26/2024 09:40:49 EDT by Alicia Jara) Substance Abuse: Denies Substance Abuse Never Comments: 09/26/2024 9:41 - Alicia Jara: denies. (Last Updated: 09/26/2024 09:41:03 EDT by Alicia Jara) Health Risk Assessment FT HRA little interest [...] limit social act? : Not at all Alicia Jara 09/26/2024 9:32 EDT Misc Health Risks Grid Sexual problems : Never Trouble eating well : Never Teeth or denture problems : Never Problems using the telephone : Never Alicia Jara 09/26/2024 9:32 EDT Confident you control health problems : Very confident Difficulties driving your car? : No Seatbelts : I always fasten my seat belt Marek Alicia Paris 09/26/2024 9:32 EDT Depression Screening Little Interest, Pleasure in Activities (ref) : Not at all Feeling Down, Depressed, Hopeless : Not at all Thoughts of Harming Self or Others : No Initial Depression Screening Score : 0 SCORE Depression Screening Result : Negative Marek Alicia Paris 09/26/2024 9:32 EDT Social Determinants (PRAPARE) Only Required Braun highlighed in yellow need to be filled out and will trigger a referral to the Chronic Care Navigators : Persian What is your housing situation today? : I have housing You or Family Gone Without Household Needs Past Year : No No Transport to Med Appts/Meetings/Work/Med s/Necessities : No Currently Live (more content not included)... Normal [facility] Comment on above: Result Comment: Elec tronically Signed By: Asim Hanks MD\.br\Date and Time Signed: 10/01/24 13:53 EDT\.br\Electronically Co-Signed By: Alicia Jara\.br\Date and Time Co-Signed: 09/26/24 10:40 EDT .Interpretation:on 5 HCV Ab IA Ql Comment Invalid Interpretation Code [facility] Comment on above: Result Comment: Not infected with HCV unless early or acute infection is suspected (which may be delayed in an immunocompromised individual), or other evidence exists to indicate HCV infection. Performed at: [facility] [id number] PhD Maya Walker Performed By: #### 2 [id number] #### [facility] [address] [place] [address] HCV Antibody RFX to Quant PC Danish 2024 HCV Ab IA Ql Non-Reactive Invalid Interpretation Code Non Reactive [facility] Comment on above: Result Comment: Perf ormed at: [facility] [id number] PhD Maya Walker Performed By: #### 2 [id number] #### [facility] [address] [place] [address] Ambulatory Visit Summaryon 0 09-26-2024 Ambulatory Visit Summary Ambulatory Visit Summary AZUL MICHELLE :1950 Visit Date:09/26/2024 Ambulatory Visit Instructions Your Diagnosis Primary hypertension BMI 40.0-44.9, adult Class 3 obesity Nonsmoker, Statin intolerance Hypercholesterolemia Osteoporosis Your Care Team Attending Physician - Asim Hanks MD Primary Care Physician - Asim Hanks MD This Is Your Medications List Non-Formulary Medication ([place] pre and pro biotic) amlodipine (amLODIPine 10 mg Tab) Procedures Performed Appendectomy, Colonoscopy, Hysteroscopy. Discharge Vitals Blood Pressure 142/88 What to do next Scheduled Follow-Up Appointments 2024 11:00 AM EDT With: Asim Hanks MD Where: [address] [address]- Monday2025 11:00 AM EDT With: Where: [address] [address]- Medications What How Much When Instructions Unchanged amlodipine (amLODIPine 10 mg Tab) 1 Tablets By Mouth Every day Unchanged Non-Formulary Medication (spring [place] pre and pro biotic) See instructions Allergies statins (Muscle ache) Problems Ongoing - Any problem that you are currently receiving treatment for. BMI 40.0-44.9, adult Class 3 obesity Fibrocystic breast disease (FCBD) Hypercholesterolemia Nonsmoker Osteoarthritis of multiple joints Osteoporosis Primary hypertension Statin intolerance Villous adenoma of colon Patient Survey You may receive a survey via text or e-mail asking about your office visit. Please share your experience with us by completing your survey. We appreciate your feedback and thank you for choosing us for your care. Normal [facility] CHEMISTRYOrdered By: SYSTEM SYSTEM on 09-26-2024 Albumin [Mass/Vol] 4.3 g/dL Normal 3.3 - 5.0 gm/dL Remisol Chem Albumin DL <= 20 mg/L (U) [Mass/Vol] 1.1 mg/dL Normal 0.0 - 1.9 mg/dL Remisol Chem Albumin/Creatinine DL <= 20 mg/L (U) [Mass ratio] 16.1 mg/gm Cr Normal 0.0 - 30.0 mg/gm Cr [facility] Comment on above: Interpretive Data: 3 0-300 mg/g Cr indicates an increased risk for diabetic nephropathy. >300 mg/g Cr is consistent with clinical nephropathy. Albumin/Globulin [Mass ratio] 1.4 {ratio} Normal 1.1 - 2.2 [facility] ALP [Catalytic activity/Vol] 64 [iU]/d Normal 21 - 98 Int._Unit/L Remisol Chem ALT No additional P-5'-P [Catalytic activity/Vol] 12 [iU]/d Normal 6 - 46 Int._Unit/L [facility]isol [facility] Anion gap [Moles/Vol] 11 mmol/L Normal 6 - 16 mEq/L R emisol Chem AST [Catalytic activity/Vol] 15 [iU]/d Normal 5 - 43 Int._Unit/L [facility] Bilirubin [Mass/Vol] 0.6 mg/dL Normal 0.0 - 1 .1 mg/dL [facility] Calcium [Mass/Vol] 9.2 mg/dL Normal 8.9 - 11. 1 mg/dL [facility] Chloride [Moles/Vol] 105 mmol/L Normal 101 - 1 11 mmol/L [facility] Cholesterol [Mass/Vol] 278 mg/dL High 120 - 200 mg/dL [facility] Cholesterol in HDL [Mass/Vol] 60 mg/dL Invalid Interpretation Code [facility] Comment on above: Result Comment: '>= 60 LOW RISK' '<= 40 HIGH RISK' Cholesterol in LDL [Mass/Vol] 192 mg/dL High <=129mg/dL [facility] Cholesterol in VLDL [Mass/Vol] 29 mg/dL Normal 7 - 40 mg/dL [facility] CO2 [Moles/Vol] 26 mmol/L Normal 21 - 31 mmol/L [facility] Creatinine [Mass/Vol] 0.6 mg/dL Normal 0.5 - 1.3 mg/dL [facility] eGFR 94 mL/min/1.73 m2 Normal >=59mL/min /1 .73 m2 [facility] Globulin (S) [Mass/Vol] 3.0 g/dL Normal 1.4 - 4.0 gm/dL [facility] Glucose [Mass/Vol] 102 mg/dL Normal 55 - 199 mg/dL [facility] Potassium [Moles/Vol] 3.9 mmol/L Normal 3.5 - 5.3 mmol/L [facility] Protein [Mass/Vol] 7.3 g/dL Normal 6.0 - 7.8 gm/dL [facility] Sodium [Moles/Vol] 138 mmol/L Normal 135 - 145 mmol/L [facility] Triglyceride [Mass/Vol] 146 mg/dL Normal <=149mg/dL Remisol Chem U Creatinine 68.2 mg/dL Invalid Interpretation Code Remisol Chem Urea nitrogen [Mass/Vol] 15 mg/dL Normal 5 - 21 mg/dL [facility] Urea nitrogen/Creatinine [Mass ratio] 25 mg/mg High 10 - 20 Remisol Chem CMPon 09-26-2024 Albumin [Mass/Vol] 4.3 g/dL Normal 3.3-5.0 [facility] Comment on above: Performed By: #### 2 [id number] #### [facility] [address] [place] [address] Albumin/Globulin (S) [Mass conc ratio] 1.4 Normal 1.1-2.2 [facility] Comment on above: Performed By: #### 2 [id number] #### [facility] [address] [place] [address] ALP [Catalytic activity/Vol] 64 Int._Unit/L Normal 21-98 [facility] Comment on above: Performed By: #### 2 [id number] #### [facility] [address] [place] [address] ALT No additional P-5'-P [Catalytic activity/Vol] 12 Int._Unit/L Normal 6-46 [facility] Comment on above: Performed By: #### 2 [id number] #### [facility] [address] [place] [address] Anion gap [Moles/Vol] 11 mmol/L Normal 6-16 [facility] Comment on above: Performed By: #### 2 [id number] #### [facility] [address] [place] [address] AST [Catalytic activity/Vol] 15 Int._Unit/L Normal 5-43 [facility] Comment on above: Performed By: #### 2 [id number] #### [facility] [address] [place] [address] Bilirubin [Mass/Vol] 0.6 mg/dL Normal 0.0-1.1 [facility] Comment on above: Performed By: #### 2 [id number] #### [facility] [address] [place] [address] Calcium [Mass/Vol] 9.2 mg/dL Normal 8.9-11.1 [facility] Comment on above: Performed By: #### 2 [id number] #### [facility] [address] [place] [address] Chloride [Moles/Vol] 105 mmol/L Normal 101-111 [facility] Comment on above: Performed By: #### 2 [id number] #### [facility] [address] [place] [address] CO2 [Moles/Vol] 26 mmol/L Normal 21-31 [facility] Comment on above: Performed By: #### 2 [id number] #### [facility] [address] [place] [address] Creatinine [Mass/Vol] 0.6 mg/dL Normal 0.5-1.3 [facility] Comment on above: Performed By: #### 2 [id number] #### [facility] [address] [place] [address] Globulin (S) [Mass/Vol] 3.0 g/dL Normal 1.4-4.0 [facility] Comment on above: Performed By: #### 2 [id number] #### [facility] [address] [place] [address] Glucose [Mass/Vol] 102 mg/dL Normal 55-199 [facility] Comment on above: Performed By: #### 2 [id number] #### [facility] [address] [place] [address] Potassium [Moles/Vol] 3.9 mmol/L Normal 3.5-5.3 [facility] Comment on above: Performed By: #### 2 [id number] #### [facility] [address] [place] [address] Protein [Mass/Vol] 7.3 g/dL Normal 6.0-7.8 [facility] Comment on above: Performed By: #### 2 [id number] #### [facility] [address] [place] [address] Sodium [Moles/Vol] 138 mmol/L Normal 135-145 [facility] Comment on above: Performed By: #### 2 [id number] #### [facility] [address] [place] [address] Urea nitrogen [Mass/Vol] 15 mg/dL Normal 5-21 [facility] Comment on above: Performed By: #### 2 [id number] #### [facility] [address] [place] [address] Urea nitrogen/Creatinine [Mass ratio] 25 No Units High 10-20 [facility] Comment on above: Performed By: #### 2 [id number] #### [facility] [address] [place] [address] Family Medicine Office/Clini c Noteon 09-26-2024 Family Medicine Office/Clinic Note Family Medicine Office/Clinic Note Chief Complaint Follow-up on blood pressure monitoring and inquire about osteoporosis management HPI Staff 6m follow up Patient is here for follow up on hypertension. How often are you checking your blood pressure? _no What are your average readings? _ Yearly BMP: _ BUN: 19 mg/dL (08/24/23 09:41:00) Calcium Lvl: 9.3 mg/dL (08/24/23 09:41:00) Chloride: 106 mmol/L (08/24/23 09:41:00) CO2: 26 mmol/L (08/24/23 09:41:00) Creatinine: 0.8 mg/dL (08/24/23 09:41:00) eGFR: 77 mL/min/1.73 m2 (08/24/23 09:41:00) Glucose Lvl: 103 mg/dL (08/24/23 09:41:00) Potassium Lvl: 3.9 mmol/L (08/24/23 09:41:00) Sodium Lvl: 140 mmol/L (08/24/23 09:41:00) NEG Mammo 05/20/24 Flu Vaccine 03/26/24 Is wanting labs to be drawn today. History of Present Illness - The patient is a 73-year-old female presenting with follow-up on hypertension management and osteoporosis discussion. - Blood pressure changes noted with a recent reading of 138/78 mmHg. - Previously unidentified osteoporosis, not under treatment. - Discussed the need for vitamin D and K2 supplementation. - Expressed concern about insurance limitations for lab work. - Patient is a nonsmoker and intolerant to statins. - Discussion of vitamin D and K2 supplementation for osteoporosis. - Patient's positive non-smoking status acknowledged. - Hypertension regularly monitored with home blood pressure readings. Physical Exam Vitals & Measurements BP: 138/78 General: alert, no acute distress ENMT: oral [...] Primary hypertension (I10: Essential (primary) hypertension) - Monitor blood pressure. - Lifestyle modifications discussed. Ordered: Body Mass Index (BMI) documented 3008F Comprehensive Metabolic Panel Current tobacco non-user 1036F Discharge medications reconciled with current medications in outpatient record 1111F Influenza immunization status assessed 1030F Lab Specimen Collect [id number] Medication list documented in medical record 1159F Most recent diastolic blood pressure 80-89 mm Hg 3079F Most recent systolic blood pressure >= 140 mm Hg 3077F Patient screen for fall risk: no falls in last year or 1 fall with no injury in last year 1101F Review of all meds by a prescribing practitioner or clinical pharmacist documented in EHR 1160F Urine Microalbumin/Creatinine Ratio 2. BMI 40.0-44.9, adult (Z68.41: Body mass index [BMI] 40.0-44.9, adult) - Dietary and activity measures implemented. 3. Class 3 obesity (E66.01: Morbid (severe) obesity due to excess calories) - Monitor weight and BMI. - Advice on dietary changes and physical activity. 4. Nonsmoker, (Z78.9: Other specified health status)Statin intolerance Please continue to not smoke. Ordered: Lab Specimen Collect [id number] 5. Hypercholesterolemia (E78.00: Pure hypercholesterolemia, unspecified) - No statins due to intolerance. - Emphasis on lifestyle management. Ordered: Lab Specimen Collect [id number] Lipid Panel 7. Osteoporosis (M81.0: Age-related osteoporosis without current pathological fracture) - Vitamin D and K2 supplements discussed. Ordered: Lab Specimen Collect [id number] Orders: amlodipine, 10 mg = 1 tab(s), Oral, Daily, # 90 tab(s), Refills(s) 1, Pharmacy: [facility]/pharmacy #[id number], 147, cm, 09/26/24 9:51:00 EDT, Height/Length Dosing, 87.1, kg, 09/26/24 9:51:00 EDT, Weight Dosing 1126F Pain severity quantified; no pain present Advance Care Planning discussed and documented 1123F Annual alcohol misuse screening, 15 min G0442 Annual Depression Screening 15 min G0444 BD Bone Density DEXA Body Mass Index (BMI) documented 3008F Central Dual-energy X-Ray Absorptiometry (DXA) results documented 3095F Colorectal CA screening results documented and reviewed 3017F Current tobacco non-user 1036F Depression Screening Negative 3352F [facility] Internal Ambulatory Referral Functional status assessed 1170F HCV Antibody RFX to Quant PCR Influenza immunization status assessed 1030F Medicare Subsequent Visit G0439 Medication list documented in medical record 1159F Most recent diastolic blood pressure >=90 mm Hg 3080F Most recent systolic blood pressure >= 140 mm Hg 3077F Patient screen for fall risk: no falls in last year or 1 fall with no injury in last year 1101F Pneumococcus immunization status assessed 1022F Review of all meds by a prescribing practitioner or clinical pharmacist documented in EHR 1160F Screening mammography documented and reviewed 3014F - 73-year-old female with a history of Class 3 obesity and primary hype (more content not included)... Normal [facility] Comment on above: Result Comment: Elec tronically Signed By: Demario DSOUZA, Asim Bradford.br\Date and Time Signed: 09/26/24 11:24 EDT Lipid Panelon 09-26-2024 Cholesterol [Mass/Vol] 278 mg/dL High 120-200 [facility] Comment on above: Performed By: #### 2 [id number] #### [facility] [address] [place] [address] Cholesterol in HDL [Mass/Vol] 60 mg/dL Invalid Interpretation Code [facility] Comment on above: Result Comment: '>= 60 LOW RISK' '<= 40 HIGH RISK' Performed By: #### 2 [id number] #### [facility] [address] [place] [address] Cholesterol in LDL [Mass/Vol] 192 mg/dL High <=129 [facility] Comment on above: Performed By: #### 2 [id number] #### [facility] [address] [place] [address] Cholesterol in VLDL [Mass/Vol] 29 mg/dL Normal 7-40 [facility] Comment on above: Performed By: #### 2 [id number] #### [facility] [address] [place] [address] Triglyceride [Mass/Vol] 146 mg/dL Normal <=149 [facility] Comment on above: Performed By: #### 2 [id number] #### [facility] [address] [place] [address] U MA/Cr Ratioon 09-26-2024 Albumin DL <= 20 mg/L (U) [Mass/Vol] 1.1 mg/dL Normal 0.0-1.9 [facility] Comment on above: Performed By: #### 1 [id number] #### [facility] [address] [place] [address] Albumin/Creatinine DL <= 20 mg/L (U) [Mass ratio] 16.1 mg/gm Cr Normal .0-30.0 [facility] Comment on above: Result Comment: 30-3 00 mg/g Cr indicates an increased risk for diabetic nephropathy. >300 mg/g Cr is consistent with clinical nephropathy. Performed By: #### 1 [id number] #### [facility] [address] [place] [address] U Creatinine 68.2 mg/dL Invalid Interpretation Code [facility] Comment on above: Performed By: #### 1 [id number] #### [facility] [address] [place] [address] eGFRon 09-26-2024 eGFR 94 mL/min/1.73 m2 Normal >=59 [facility] Comment on above: Performed By: #### 1 [id number] #### [facility] [address] [place] [address] X-ray reportOrdered By: Adarsh King on 07-20-2024 Study report [facility] [address] [address] XRay Report Signed Patient: Azul Michelle MR#: [id number] : 1950 Acct:[id number] Age/Sex: 73 / F ADM Date: Loc: XDUCLY Room: Type: [facility] Attending Dr: Aleida Frye APRN Copies to: Aleida Frye APRN~ Ordering Provider: Aleida Frye APRN Date of Service: 07/20/24 XR/XR elbow RT min 3V*: M25.521 - Pain in right elbow 4 views rightelbow plain film COMPARISON :None HISTORY: Fell injuring right elbow ACUTE FINDINGS: None DEGENERATIVE CHANGE: Unremarkable SOFT TISSUE FINDINGS: Unremarkable JOINT EFFUSION: None POSTOP CHANGES: None BONE MINERALIZATION: Adequate XR/XR elbow RT min 3V* IMPRESSION: No acute findings. Impression dictated by: Franklin King M.D.07/20/2024 12:16 PM Dictation Location: enosiX-20 Transcribed By: ALONDRA 07/20/241215 Dictated By: Franklin King DO 07/20/241214 Signed By: 07/20/24 121 [facility] XR elbow RT min 3V*on 2024 XR elbow RT min 3V* [facility] [place] [address] XRay Report Signed Patient: Azul Michelle MR#: [id number] : 1950 Acct:[id number] Age/Sex: 73 / F ADM Date: 07/20/24 Loc: XDUC Room: Type: [facility] Attending Dr: Aleida Frye [employer] Copies to: Aleida Frye APRN Ordering Provider: Aleida Frye APRN Date of Service: 07/20/24 XR/XR elbow RT min 3V*: M25.521 - Pain in right elbow 4 views rightelbow plain film COMPARISON :None HISTORY: Fell injuring right elbow ACUTE FINDINGS: None DEGENERATIVE CHANGE: Unremarkable SOFT TISSUE FINDINGS: Unremarkable JOINT EFFUSION: None POSTOP CHANGES: None BONE MINERALIZATION: Adequate XR/XR elbow RT min 3V* IMPRESSION: No acute findings. Impression dictated by: Franklin King M.D.07/20/2024 12:16 PM Dictation Location: [facility]X-[employer] Transcribed By: [facility] 07/20/24 1216 Dictated By: Franklin King DO 07/20/241214 Signed By: 07/20/24 121 [facility] Ambulatory Visit Summaryon 1 Ambulatory Visit Summary Ambulatory Visit Summary AZUL MICHELLE :1950 Visit Date:03/26/2024 Ambulatory Visit Instructions Your [...] Appointments 2024 9:30 AM EDT With: Where: [address] [address] 2024 10:30 AM EDT With: Asim Hanks MD Where: [address] [address]- Medications What How Much When Instructions Unchanged amlodipine (amLODIPine 10 mg Tab) 1 Tablets By Mouth Every day Pickup at [facility]/pharmacy #[id number] Pharmacy Information [facility]/pharmacy #[id number]: [address], [place] [id number] [phone] Allergies No Known Allergies No Known Medication [...] BMI (more content not included)... Normal [facility] Family Medicine Office/Clini c Noteon 03-26-2024 Family Medicine Office/Clinic Note Family Medicine Office/Clinic Note [facility] Staff Azul is a 73 year old female presenting for 6 month follow up htn In september increased her [facility] Patient is here for follow up on [...] Daily, # 90 tab(s), Refills(s) 1, Pharmacy: [facility]/pharmacy #[id number], 147, cm, 03/26/24 9:07:00 EDT, Height/Length [...] influenza virus vaccine, inactivated 03/05/2015 Recorded Normal [facility] Comment on above: Result Comment: Elec tronically Signed By: Asim Hanks MD\.br\Date and Time Signed: 03/26/24 09:32 EDT Ambulatory Visit Summaryon 0 02-12-2024 Ambulatory Visit Summary Ambulatory Visit Summary AZUL MICHELLE :1950 Visit Date:02/12/2024 Ambulatory Visit Instructions Your [...] EDT With: Demario DSOUZA, Asim Palmer Where: [address] [address] 2024 9:30 AM EDT With: Where: [address] [address]- Medications What How Much When Instructions Unchanged [...] for choosing us for your care. Normal [facility] Family Medicine Office/Clini c Noteon 02-12-2024 Family [...] day(s), # 21 tab(s), Refills(s) 0, Pharmacy: [facility]/pharmacy #[id number], 147, cm, 02/12/24 13:52:00 EDT, Height/Length [...] Current, Wine (more content not included)... Normal [facility] Comment on above: Result Comment: Elec tronically Signed By: Demario DSOUZA, Asim Chou\Date and Time Signed: 02/12/24 14:02 EDT CHEMISTRYOrdered By: SYSTEM SYSTEM on 08-24-2023 Anion gap [Moles/Vol] 12 mmol/L Normal 6 - 16 mEq/L R emisol Chem Calcium [Mass/Vol] 9.3 mg/dL Normal 8.9 - 11. 1 mg/dL [facility] Chloride [Moles/Vol] 106 mmol/L Normal 101 - 1 11 mmol/L [facility] Cholesterol [Mass/Vol] 255 mg/dL High [...] 26 mmol/L Normal 21 - 31 mmol/L [facility] Creatinine [Mass/Vol] 0.8 mg/dL Normal 0.5 - 1.3 mg/dL [facility] eGFR 77 mL/min/1.73 m2 Normal >=59mL/min /1 .73 m2 [facility] Glucose [Mass/Vol] 103 mg/dL Normal 55 - 199 mg/dL [facility] Potassium [Moles/Vol] 3.9 mmol/L Normal 3.5 - 5.3 mmol/L [facility] Sodium [Moles/Vol] 140 mmol/L Normal 135 - 145 mmol/L [facility] Triglyceride [Mass/Vol] 166 mg/dL High <=149mg/dL [facility] Urea nitrogen [Mass/Vol] 19 mg/dL Normal 5 - 21 mg/dL [facility] Urea nitrogen/Creatinine [Mass ratio] 24 mg/mg High 10 - 20 [facility] HEMATOLOGYOrdered By: SYSTEM SYSTEM on 08-24-2023 Basophils/100 [...] 5.1 E12/L Normal 4.3 - 5.9 E12/L Remisol Heme WBC corrected for nucl RBC Auto (Bld) [#/Vol] 6.6 E9/L Normal 4.0 - 11.0 E9/L Remisol Heme GLYCOHEMOGLOBIN A1Con 2022 ADA RECOMMENDATION SEE BELOW Normal [facility] Comment on above: Result Comment: ADA RECOMMENDED LIMIT 4.0 - 6.0 ADA THERAPEUTIC TARGET < 7.0 ACTION SUGGESTED > 7.0 Performed By: #### A 1C #### [facility] [address] [address] [address] Benitez Prescott Glucose [Mass/Vol] 111 mg/dL Normal [facility] Comment on above: Performed By: #### A 1C #### [facility] [address] [address] [address] Benitez Prescott HbA1c (Bld) [Mass fraction] 5.5 % Normal 4.5-6.2 [facility] Comment on above: Performed By: #### A 1C #### [facility] [address] [place] [address] Dr. Benitez Prescott XR DEXA BONE DENSITYon [...] by: JOSE MARADIAGA Date: 2022-06-23 08:41 Normal [facility] PAP ACOG PANEL 2: 30 to 65on 06-22-2022 . . Normal [facility] Comment on above: Performed By: #### 4 [id number] #### [facility] [address] [place] [address] Dr. Benitez Prescott Age Gdln ACOG Testing Comment Normal [facility] Comment on above: Result Comment: <21 or >65 or no age provided Performed By: #### 4 [id number] #### [facility] [address] [place] [address] Dr. Benitez Prescott DIAGNOSIS: Comment Normal [facility] Comment on above: Result Comment: NEGA TIVE FOR INTRAEPITHELIAL LESION OR MALIGNANCY. REACTIVE CELLULAR CHANGES AND/OR REPAIR ARE PRESENT. CELLULAR CHANGES ASSOCIATED WITH ATROPHY ARE PRESENT. Performed By: #### 4 [id number] #### [facility] [address] [place] [address] Dr. Benitez Prescott Electronically signed by: Comment Normal [facility] Comment on above: Result Comment: Sabra Hernandez MD, Pathologist Performed By: #### 4 [id number] #### [facility] [address] [place] [address] Dr. Benitez Prescott Methodology: Comment Normal [facility] Comment on above: Result Comment: This liquid based ThinPrep(R) pap test was screened with the use of an image guided system. Performed By: #### 4 [id number] #### [facility] [address] [place] [address] Dr. Benitez Prescott Note: Comment Normal [facility] Comment on above: Result Comment: The Pap smear is a screening test designed to aid in the detection of premalignant and malignant conditions of the uterine cervix. It is not a diagnostic procedure and should not be used as the sole means of detecting cervical cancer. Both false-positive and false-negative reports do occur. . Performed By: #### 4 [id number] #### [facility] [address] [place] [address] Dr. Benitez Prescott Performed by: Comment Normal [facility] Comment on above: Result Comment: Sonny Amador, Supervisor [employer] ([employer]) Performed By: #### 4 [id number] #### [facility] [address] [place] [address] Dr. Benitez Prescott Specimen adequacy: Comment Normal [facility] Comment on above: Result Comment: Sati sfactory for evaluation. Endocervical component may not be distinguished in cases of atrophy. Performed By: #### 4 [id number] #### [facility] [address] [place] [address] Dr. Benitez Prescott CBC AUTO DIFFon 06-18-2022 BASO # 0.1 103/ul Normal 0.0-0.1 [facility] Comment on above: Performed By: #### C BC #### [facility] [address] [place] [address] Dr. Benitez Prescott Basophils/100 WBC (Bld) 0.7 % Normal 0.2-2.0 [facility] Comment on above: Performed By: #### C BC #### [facility] [address] [place] [address] Dr. Benitez Prescott EO # 0.1 103/ul Normal 0.0-0.7 [facility] Comment on above: Performed By: #### C BC #### [facility] [address] [place] [address] Dr. Benitez Prescott Eosinophils/100 WBC (Bld) 1.6 % Normal 0.9-7.0 [facility] Comment on above: Performed By: #### C BC #### [facility] [address] [place] [address] Dr. Benitez Prescott Erythrocyte distribution width (RBC) [Ratio] 13.3 % Normal 11.0-15.0 [facility] Comment on above: Performed By: #### C BC #### [facility] [address] [place] [address] Dr. Benitez Prescott Hematocrit (Bld) [Volume fraction] 42.1 % Normal 36.0-48.0 [facility] Comment on above: Performed By: #### C BC #### [facility] [address] [place] [address] Dr. Benitez Prescott Hemoglobin (Bld) [Mass/Vol] 14.3 g/dL Normal 12.0-16.0 [facility] Comment on above: Performed By: #### C BC #### [facility] [address] [place] [address] Dr. Benitez Prescott IG # 0.02 10e3/ul Normal 0.00-0.03 [facility] Comment on above: Performed By: #### C BC #### [facility] [address] [place] [address] Dr. Benitez Prescott IG % 0.2 % Normal 0.0-0.5 [facility] Comment on above: Performed By: #### C BC #### [facility] [address] [place] [address] Dr. Benitez Prescott LYMPH # 3.9 103/ul Critically high 1.2-3.[address] [facility] Comment on above: Performed By: #### C BC #### [facility] [address] [place] [address] Dr. Benitez Prescott Lymphocytes/100 WBC (Bld) 48.3 % Normal 20.5-60.0 [facility] Comment on above: Performed By: #### C BC #### [facility] [address] [place] [address] Dr. Benitez Prescott MANUAL DIFF REQ NO Normal [facility] Comment on above: Performed By: #### C BC #### [facility] [address] [place] [address] Dr. Benitez Prescott MCH (RBC) [Entitic mass] 28.8 pg Normal 26.7-34.0 [facility] Comment on above: Performed By: #### C BC #### [facility] [address] [place] [address] Dr. Benitez Prescott MCHC (RBC) [Mass/Vol] 34.0 g/dL Normal 29.9-35.2 [facility] Comment on above: Performed By: #### C BC #### [facility] [address] [place] [address] Dr. Benitez Prescott MCV (RBC) [Entitic vol] 84.9 fL Normal 81.0-99.0 [facility] Comment on above: Performed By: #### C BC #### [facility] [address] [place] [address] Dr. Benitez Prescott MONO # 0.7 103/ul Normal 0.3-0.8 [facility] Comment on above: Performed By: #### C BC #### [facility] [id number] Benitez Prescott Monocytes/100 WBC (Bld) 8.8 % Normal 1.7-12.0 [facility] Comment on above: Performed By: #### C BC #### [facility] [address] [address] [address] Benitez Prescott NEUT # 3.2 103/ul Normal 1.4-6.5 [facility] Comment on above: Performed By: #### C BC #### [facility] [address] [place] [address] Dr. Benitez Prescott Neutrophils/100 WBC (Bld) 40.4 % Critically low 43.0-75.0 [facility] Comment on above: Performed By: #### C BC #### [facility] [address] [place] [address] Dr. Benitez Prescott Platelet mean volume (Bld) [Entitic vol] 10.6 fL Normal 9.5-13.5 [facility] Comment on above: Performed By: #### C BC #### [facility] [address] [place] [address] Dr. Benitez Prescott PLT 309 103/ul Normal 150-450 [facility] Comment on above: Performed By: #### C BC #### [facility] [address] [place] [address] Dr. Benitez Prescott RBC 4.96 106/ul Normal 4.20-5.40 [facility] Comment on above: Performed By: #### C BC #### [facility] [address] [place] [address] Dr. Benitez Prescott WBC 8.1 103/ul Normal 4.0-11.0 [facility] Comment on above: Performed By: #### C BC #### [facility] [address] [place], [place] [id number] Dr. Benitez Prescott LIPID PROFILEon 06-18-2022 CHOL-HDL RATIO NORM SEE BELOW Normal [facility] Comment on above: Result Comment: 3.3 - 4.4 LOW RISK 4.4 - 7.1 AVERAGE RISK 7.1 - 11.0 MODERATE RISK >11.0 HIGH RISK Performed By: #### C MP, LIPID #### [facility] [address] [address] [address] Benitez Prescott Cholesterol [Mass/Vol] 278 mg/dL Critically high <=200 [facility] Comment on above: Performed By: #### C MP, LIPID #### [facility] [address] [address] [address] Benitez Prescott Cholesterol in HDL [Mass/Vol] 67 mg/dL Critically high 40-60 [facility] Comment on above: Performed By: #### C MP, LIPID #### [facility] [address] [address] [address] Benitez Prescott Cholesterol in LDL [Mass/Vol] 171.4 mg/dL Normal [facility] Comment on above: Performed By: #### C MP, LIPID #### [facility] [address] [place] [address] Dr. Benitez Prescott Cholesterol.total/Cho lesterol in HDL [Mass ratio] 4.1 {ratio} Normal [facility] Comment on above: Performed By: #### C MP, LIPID #### [facility] [address] [address] [address] Benitez Prescott HDL NORMAL > or = 60 mg/dl - LO W CARDIOVASCULAR RISK <40 mg/dl - HIGH CARDIOVASCULAR RISK Normal [facility] Comment on above: Performed By: #### C MP, LIPID #### [facility] [address] [address] [address] Benitez Prescott LDL CALC NORMAL SEE BELOW Normal [facility] Comment on above: Result Comment: <100 mg/dl OPTIMAL 100 - 129 mg/dl NEAR OR ABOVE OPTIMAL 130 - 159 mg/dl BORDERLINE HIGH 160 - 189 mg/dl HIGH >190 mg/dl VERY HIGH Performed By: #### C MP, LIPID #### [facility] [address] [address] [address] Benitez Prescott Triglyceride [Mass/Vol] 198 mg/dL Critically high <=150 [facility] Comment on above: Performed By: #### C MP, LIPID #### [facility] [address] [address] [address] Benitez Prescott VLDL CALC 39.6 mg/dL Normal [facility] Comment on above: Performed By: #### C MP, LIPID #### [facility] [address] [place] [address] Dr. Benitez Prescott PROF 14(COMP METB)on 023 Albumin [Mass/Vol] 3.8 g/dL Normal 3.4-5.0 [facility] Comment on above: Performed By: #### C MP, LIPID #### [facility] [address] [place] [address] Dr. Benitez Prescott Albumin/Globulin [Mass ratio] 1.0 {ratio} Normal [facility] Comment on above: Performed By: #### C MP, LIPID #### [facility] [address] [place] [address] Dr. Benitez Prescott ALP [Catalytic activity/Vol] 69 U/L Normal 46-116 [facility] Comment on above: Performed By: #### C MP, LIPID #### [facility] [address] [place] [address] Dr. Benitez Prescott ALT [Catalytic activity/Vol] 24 U/L Normal 14-59 [facility] Comment on above: Performed By: #### C MP, LIPID #### [facility] [address] [place] [address] Dr. Benitez Prescott Anion gap [Moles/Vol] 11.3 mmol/L Normal [facility] Comment on above: Performed By: #### C MP, LIPID #### [facility] [address] [place] [address] Dr. Benitez Prescott AST [Catalytic activity/Vol] 16 U/L Normal 15-37 [facility] Comment on above: Performed By: #### C MP, LIPID #### [facility] [address] [place] [address] Dr. Benitez Prescott Bilirubin [Mass/Vol] 0.7 mg/dL Normal 0.2-1.0 [facility] Comment on above: Performed By: #### C MP, LIPID #### [facility] [address] [place] [address] Dr. Benitez Prescott Calcium [Mass/Vol] 9.2 mg/dL Normal 8.5-10.1 [facility] Comment on above: Performed By: #### C MP, LIPID #### [facility] [address] [place] [address] Dr. Benitez Prescott Chloride [Moles/Vol] 104 mmol/L Normal 98-107 [facility] Comment on above: Performed By: #### C MP, LIPID #### [facility] [address] [place] [address] Dr. Benitez Prescott CO2 [Moles/Vol] 29.7 mmol/L Normal 21.0-32.0 [facility] Comment on above: Performed By: #### C MP, LIPID #### [facility] [address] [place] [address] Dr. Benitez Prescott Creatinine [Mass/Vol] 0.82 mg/dL Normal 0.55-1.02 [facility] Comment on above: Performed By: #### C MP, LIPID #### [facility] [address] [place] [address] Dr. Benitez Prescott EGFR-AF [facility] LUCIAN >60 Normal >=60 [facility] Comment on above: Performed By: #### C MP, LIPID #### [facility] [address] [place] [address] Dr. Benitez Prescott EGFR-NON AF [facility] >60 Normal >=60 [facility] Comment on above: Performed By: #### C MP, LIPID #### [facility] [address] [place] [address] Dr. Benitez Prescott Globulin (S) [Mass/Vol] 3.7 g/dL Normal [facility] Comment on above: Performed By: #### C MP, LIPID #### [facility] [address] [place] [address] Dr. Benitez Prescott Glucose [Mass/Vol] 128 mg/dL Critically high 74-106 T [facility] Comment on above: Performed By: #### C MP, LIPID #### [facility] [address] [place] [address] Dr. Benitez Prescott Potassium [Moles/Vol] 4.0 mmol/L Normal 3.5-5.1 [facility] Comment on above: Performed By: #### C MP, LIPID #### [facility] [address] [address] [address] Benitez Prescott Protein [Mass/Vol] 7.5 g/dL Normal 6.4-8.2 [facility] [facility] Comment on above: Performed By: #### C MP, LIPID #### [facility] [address] [address] [address] Benitez Prescott Sodium [Moles/Vol] 141 mmol/L Normal 136-145 [facility] Comment on above: Performed By: #### C MP, LIPID #### [facility] [address] [address] [address] Benitez Prescott Urea nitrogen [Mass/Vol] 15.0 mg/dL Normal 7.0-18.0 [facility] Comment on above: Performed By: #### C MP, LIPID #### [facility] [address] [address] [address] Benitez Prescott Urea nitrogen/Creatinine [Mass ratio] 18.3 mg/mg Normal [facility] Comment on above: Performed By: #### C MP, LIPID #### [facility] [address] [place] [address] Dr. Benitez Prescott MG MAMM SCREEN 3D BEENA CADon 05-17-2022 MG MAMM SCREEN 3D BEENA CAD Patient: AZUL MICHELLE Exam Date: 05/17/2022 : 1950 Gender:F Ordering : DR YOANNA CORONEL . Admission #: [id number] Family : Order #: [id number] CLICK HERE TO VIEW EXAM RADIOLOGY REPORT [...] breast cancer at age 59. LOCATION: [facility] BREAST COMPOSITION: Heterogeneously dense,which may obscure small [...] Maradiaga M.D. on 05/17/2022 at 15:04 Normal [facility] CYTOLOGYon 02-28-2017 CYTOLOGY Specimen #: [id number] Physician: YOANNA GRIMESPECARISTIDES SUBMITTEDA: CERVICAL, SCREENING, FLUID FI NAL DIAGNOSISA. CERVICAL, SCREENING, FLUIDSatisfactory for interpretation.Negative for intraepithelial lesion or malignancy.This specimen has been analyzed by the ThinPrep Imaging System, anautomated imaging and review system, which assists the laboratory inevaluating cells on ThinPrep Pap tests. Following automated imaging,selected braun from every slide are reviewed by a ethernet network architect.JENIFER Gibbs (ASCP) (Electronic Signature) CL INICAL DATA Menstrual History:Post-Menopausal Clinical History:ROUTINESTAINSA: CERVICAL, SCREENING, FLUID THIN PREP Ajay Montoya M.D., Laboratory DirectorPatient ID #: [id number] of Report: 03/02/2017Date of Procedure: 02/28/2017Date of Receipt: 03/01/2017Submitted by: YOANNA CORONELLocation: Diagnostic interpretation performed at [facility], [address] [place] [address].The Pap Smear is a screening test for cervical cancer. False negativeresults occur with all screening tests, emphasizing the need forrescreening at recommended intervals, and clinical correlation. Normal [facility] Comment on above: Performed By: #### C ####See report for performing lab information. Vital Signs Date Time Vital Sign Value Performing Clinician Faci lity 07-20-2024 11:42-0500 Body height 149.86 cm [facility] 07-20-2024 11:42-0500 Body mass index (BMI) [Ratio] 38.7 kg/m2 [facility] 07-20-2024 11:42-0500 Body temperature 97.8 [degF] [facility] 07-20-2024 11:42-0500 Body weight 87.14 kg [facility] 07-20-2024 11:42-0500 Diastolic blood pressure 84 mm[Hg] [facility] 07-20-2024 11:42-0500 Heart rate 97 /min [facility] 07-20-2024 11:42-0500 SaO2% (BldA) [Mass fraction] 96 % [facility] 07-20-2024 11:42-0500 Systolic blood pressure 154 mm[Hg] [facility] Encounters Encounter Date Encounter Type Care Provider Facility Start: 09-29-2025 ambulatory MD Asim Hanks Facil ity:[facility] Start: 03-27-2025 [facility]ulatory [facility] Start: 11-12-2024 End: 11-12-2024 ambulatory Tristen SORENSEN Facility: [facility] Start: 11-12-2024 End: 11-12-2024 Patient encounter procedure Tristen SORENSEN [facility] Start: 09-26-2024 End: 04-24-2025 Lab Drop off Asim Hanks [facility] Start: 09-26-2024 End: 09-26-2024 ambulatory Asim Hanks Facility:[facility] Start: 09-26-2024 End: 09-26-2024 ambulatory MD Asim Hanks Facility:[facility] [place] Start: 07-20-2024 End: 07-20-2024 ambulatory NON STAFF [facility] Work Phone: Start: 07-20-2024 End: 07-20-2024 Patient encounter procedure Formerly [facility] Physician [facility] Work Phone: Start: 03-26-2024 End: 03-26-2024 ambulatory MD Asim Hanks Facility:[facility] [place] Start: 02-12-2024 End: 02-12-2024 ambulatory [facility] Start: 08-24-2023 End: 08-24-2023 Lab Drop off Asim Hanks [facility] Start: 06-24-2022 End: 06-25-[address] YOANNA CORONEL Facility:[facility] Start: 06-23-2022 End: 06-24-[address] YOANNA CORONEL Facility:[facility] Start: 06-18-2022 End: 06-19-[address] YOANNA CORONEL Facility:[facility] Start: 06-17-2022 End: 06-17-[address] YOANNA CORONEL Facility:[facility] Start: 05-17-2022 End: 05-18-[address] YOANNA CORONEL Facility:[facility] Procedures Date Procedure Procedure Detail Performing Clinician Start: 07-20-2024 Plain X-ray of right elbow Start: 04-22-2015 Colonoscopy Tristen LION Start: 03-18-2010 Colonoscopy Tristen LION Start: 06-29-2006 Colonoscopy Tristen LION Appendectomy Asim Hanks Colonoscopy Asim Hanks Comment on above: 2006, 2009, 2016, re peat 5 years History of appendectomy History of append ectomy Hysteroscopy Asim Hanks Comment on above: w/ D&C 05/2004 Immunizations Immunization Date Immunization Notes Care Provider Fa [facility] 03-26-2024 influenza, high dose seasonal, preservative-free; Translations: [Fluzone High Dose Vaccine] Asim Hanks [facility] 04-07-2021 SARS-CoV-2 (COVID-19 ) mRNA BNT-162b2 vax Asim Hanks [facility] Comment on above: Result Comment: 2022: TPV70 08-04-2020 SARS-CoV-2 (COVID-19 ) mRNA BNT-162b2 vafany Hanks [facility] Comment on above: Result Comment: 2022: TPV70 07-14-2020 SARS-CoV-2 (COVID-19 ) mRNA BNT-162b2 jo Hanks [facility] Comment on above: Result Comment: 2022: TPV70 03-05-2015 influenza virus vaccine, unspecified formulation Asim Hanks [facility] Payers Date Payer Category Payer Self-pay 2022 Medicare [id number] 2020 Private Health Insurance [id number] 2020 Unknown [id number] 1959 Medicare [id number] 1959 Unknown [id number] 1950 Unknown [id number] 2.16.84 [id number] 1950 Unknown [id number] 2.16.84 [id number] 1950 Unknown [id number] 2.16.84 0.1.691564.3.579.2.593 1950 Unknown [id number] 2.16.84 0.1.180190.3.579.2.593 1950 Unknown [id number] 2.16.84 0.1.739231.3.579.2.593 1950 Unknown [id number] 2.16.8 40.1.830555.3.579.2.727 1950 Unknown [id number] 2.16.8 40.1.925409.3.579.2.727 1950 Unknown [id number] 2.16.8 40.1.394889.3.579.2.727 1950 Unknown [id number] 2.16.8 40.1.837575.3.579.2.727 1950 Unknown [id number] 2.16.8 40.1.877589.3.579.2.727 1950 Unknown [id number] 2.16.8 40.1.838720.3.579.2.727 1950 Unknown [id number] 2.16.8 40.1.525883.3.579.2.727 1950 Unknown [id number] 2.16.8 40.1.564101.3.579.2.727 Unknown [id number] 2.16.8 40.1.130312.3.579.2.531 Social History Date Type Detail Facility Start: 08-24-2023 End: 11-12-2024 Tobacco smoking status Never smoked tobacco (finding) [facility] Comment on above: denies use. Tobacco smoking status Never [facility] Comment on above: denies use. Sex Assigned At Female [facility] Start: 07-20-2024 End: 07-21-2024 Sex Female (finding) [facility] Start: 1950 Sex Assigned At Female F [facility] Sexual Orientation [facility] Clinical Notes 03-26-2024 to 11-12-2024 Note Date & Type Note Facility 11-12-2024 Note General Surgery Offi ce/Clinic Note Chief Complaint consultation for colonoscopy HPI Staff 74 year old female presents on consultation from Dr. Hanks for screening colonoscopy. Denies abdominal or rectal pain. No rectal bleeding or change in bowel habits. Denies nausea, vomiting or weight loss. Last colonoscopy completed 04/2015- normal. Aunt with history of colon cancer, age 60's. History of Present Illness 74 yo female with h/o htn, hypercholesterolemia, osteoporosis, osteoarthritis, referred for colorectal screening; patient denies change in bms or blood in stools, no abd complaints; abd operations significant for appendectomy, last colonoscopy 2014, wnl; no asa or NSAID use; no tobacco use; no fmhx of GI malignancy or IBD. Review of Systems PHQ Score Initial Depression Screen Score: 0 SCORE ROS - Provider Constitutional: no fever, no sweats, no weight loss. Eyes: yes glasses, no blurred vision, no visual loss. ENMT: no dentures, no hoarseness, no swallowing difficulties, no hearing loss, no ear infection(s), no nose bleeds. Cardiovascular: normal blood pressure, no chest pain, regular heartbeat, no heart murmur. Respiratory: no shortness of breath, no cough, no asthma, no wheezing. Gastrointestinal: no nausea, no vomiting, no diarrhea, no constipation, no blood in stool, no change in bowel habits, no abdominal pain, no hepatitis. Genitourinary: no kidney stones, no urine infection, no dysuria. Musculoskeletal: no pain, no weakness. Skin: no changing moles, no rash, no skin lumps. Neurologic: no seizures, no epilepsy, no headache. Psychiatric: no emotional or psychiatric problem. Heme/Lymph: no bleeding problems, no anemia, no blood clots, no transfusions. Allergy/Immunologic: no swollen lymph nodes/glands, no IV drug abuse. Other: Additional ROS info: Except as noted in the above Review of Systems and in the History of Present Illness, all other systems have been reviewed and are negative or noncontributory. Physical Exam Vitals & Measurements HR: 72(Peripheral) RR: 16 BP: 126/78 HT: 58 in HT: 147 cm WT: 191.581 lb WT: 86.9 kg BMI: 40.21 HEENT: normal conjunctiva, sclera clear, no scleral icterus, EOM intact, PERRLA, oral mucosa moist without lesions. Neck: trachea midline, no mass, symmetric, no thyromegaly or nodules, no adenopathy Respiratory: lungs CTA, respirations non labored. Cardiovascular: regular rate and rhythm, no murmur, no pedal edema or varicosities. Gastrointestinal: obese, soft, non distended, no tenderness, no masses, no palpable hernias, diastasis recti no, no hepatosplenomegaly; normal bs Lymphatic: no cervical adenopathy, no supraclavicular adenopathy. Musculoskeletal: normal gait, digits and nails without infection, nodes, cyanosis, clubbing. Skin: no rashes, no lesions, no ulcers, no subcutaneous nodules, induration. Psychiatric/Neuro: oriented to time, place, person, judgement normal, affect appropriate for age, insight intact, no focal deficits. Tests: review of old records completed , Discussed surgical options, risks, and possible complications with patient. Assessment/Plan 1. Screening for malignant neoplasm of colon (Z12.11: Encounter for screening for malignant neoplasm of colon) plan colonoscopy under anesthesia, informed consent obtained. Follow-up No qualifying data available Problem List/Past Medical History Ongoing BMI 40.0-44.9, adult Class 3 obesity Fibrocystic breast disease (FCBD) Hypercholesterolemia Morbid obesity with BMI of 40.0-44.9, adult Nonsmoker Osteoarthritis of multiple joints Osteoporosis Primary hypertension Screening for malignant neoplasm of colon Statin intolerance Historical No qualifying data Procedure/Surgical History Colonoscopy (04/22/2015), Colonoscopy (03/18/2010), Colonoscopy (06/29/2006), Appendectomy, Hysteroscopy. Medications amLODIPine 10 mg Tab, 10 mg= 1 tab(s), Oral, Daily, 1 refills eldridge pre and pro biotic, See Instructions Allergies statins (Muscle ache) Social History Alcohol - Low Risk, 09/21/2023 Never, 09/26/2024 Substance Abuse - Denies Substance Abuse, 09/21/2023 Never, 09/26/2024 Tobacco - Denies Tobacco Use, 09/21/2023 Never (less than 100 in lifetime) Tobacco Use:. Never Smokeless Tobacco Use:., 11/12/2024 Family History Heart disease: Father. Primary malignant neoplasm of colon: Aunt. Immunizations Vaccine Date Status Comments influenza virus vaccine, inactivated 03/26/2024 Given SARS-CoV-2 (COVID-19) mRNA BNT-162b2 vax 04/07/2021 Recorded 2022-12-28: TPV70 SARS-CoV-2 (COVID-19) mRNA BNT-162b2 vax 08/04/2020 Recorded 2022-12-28: TPV70 SARS-CoV-2 (COVID-19) mRNA BNT-162b2 vax 07/14/2020 Recorded 2022-12-28: TPV70 influenza virus vaccine, inactivated 03/05/2015 Recorded [facility] Comment on above: Result Comment: Elec tronically Signed By: FRANCHESCA DSOUZA, Tristen Tan\Date and Time Signed: 11/12/24 13:51 EDT 09-26-2024 Note Patient Education Nutrition BMI for Adults [...] measurements used for? BMI is useful to: ??? Find out if your weight puts you at higher risk for medical problems. ??? Help recommend changes, such as in diet [...] Multiply the number of pounds by 703. ??? So, for an adult who weighs 150 lb, multiply that number by 703: 150 x 703, which equals 105,450. 3. Measure your height in inches. Then multiply that number by itself to get a measurement called inches squared. ??? So, for an adult who is 70 [...] 1. Measure your weight in kilograms (kg). ??? For this example, the weight is 70 kg. 2. Measure your height in meters (m). Then multiply that number by itself to get a measurement called meters squared. ??? So, for an adult who is 1.75 [...] obese. The following guidelines will be used: ??? Underweight: BMI less than 18.5. ??? Normal weight: BMI between 18.5 and 24.9. ??? Overweight: BMI between 25 and 29.9. ??? Obese: BMI of 30 or above. BMI is a tool and cannot diagnose a condition. Talk with your health care provider about what your BMI means for you. Keep these notes in mind: ??? Weight includes fat and muscle. Someone with a muscular build, such as an athlete, may have a BMI that is higher than 24.9. In cases like these, BMI is not a correct measure of body fat. ??? If you have a BMI of 25 or higher, your provider may need to do more testing to find out if excess body fat is the cause. ??? BMI is measured the same way for males and females. Females usually have more body fat than males of the same height and weight. Where to find more information For more information about BMI, including tools to quickly find your BMI, go to: ??? Centers for Disease Control and Prevention: cdc.gov ??? [place] Heart Association: heart.org ??? National Heart, Lung, and Blood Equality: nhlbi.nih.gov This information is not intended to replace advice given to you by your health care provider. Make sure you discuss any questions you have with your health care provider. Document Revised: 02/09/2023 Document Reviewed: 02/02/2023 [email or web address] Patient Education ? 2023 [employer] [facility] 07-20-2024 Evaluation note Diagnosis Onset Date Resolution Strain of elbow, left acute July 20, 025 11:41am [facility] Work Phone: 1(146) 110-690810-22-2024 NotePatient Education Nutrition BMI for Adults Body mass [...] BMI calculators are available to help you findyour BMI quickly and easily without doing these [...] meters squared number. In this example: 70 ?3.1 = 22.6. This is your BMI. What [...] such as an athlete, may have a BMIthat is higher than 24.9. In cases like these, BMI is not a correct measure of body fat. ? If you have a BMI of 25 or higher, your provider may need to do more testing to find out if excess body fat is the cause. ? BMI is measured the same way for males and females. Females usually have more body fat than malesof the same height and weight. Where to find more information For more information about BMI, including tools to quickly find your BMI, go to: ? Centers for Disease Control and Prevention: cdc.gov ? [place] Heart Association: heart.org ? National Heart, Lung, and Blood Equality: nhlbi.nih.gov This information is not intended to replace advice given to you by your health care provider. Make sure you discuss any questions you have with your health care provider. Document Revised: 02/09/2023 Document Reviewed: 02/02/2023 Elsevier Patient Education ? 2023 [employer] Evaluation + Plan note Future Appointments Appointment Date:09/21/2023 09:30:00 AM Scheduled Provider: Location:[facility] Appointment Type:FM Medicare Wellness [facility] Future App[facility]ments Appointment Date:03/27/2025 11:00:00 AM Scheduled Provider:Asim Hanks MD Location:[facility] Appointment Type:FM Open Appointment Date:09/29/2025 11:00:00 AM Scheduled Provider: Location:[facility] Appointment Type:FM Medicare Wellness Subsequent Diagnostic Tests Pending * HCV Antibody RFX to Quant PCR 09/26/24 [facility] Evaluation + Plan note Future Appointments Appointment Date:03/27/2025 11:00:00 AM Scheduled Provider:Asim Hanks MD Location:[facility] Appointment Type:FM Open Appointment Date:09/29/2025 11:00:00 AM Scheduled Provider: Location:[facility] Appointment Type:FM Medicare Wellness Subsequent [facility] Surgery [facility] Evaluation noteNo assessment information available [facility] Work Phone: Hospital course Narrative No data available for this section [facility] No data available for this section [facility] No data available for this section [facility] Summary Purpose Family History No Family History Records Found Relationship Condition Age at Onset Recorded Date/T dada mother Hypertension Unknown Advance Directives No Advanced Directives Records Found Advance Directive Response Recorded Date/ Time Advance Directives No July 11:40am Chief Complaint and Reason for Visit Chief Complaint Admit Date right elbow pain after falling July 20, 2024 11:41am M25.521 - Pain in right elbow July 062024 12:00pm Reason for Visit Admit Date Strain of elbow, left July 20 11:41am Additional Source Comments INFORMATION SOURCE (unrecogn ized section and content) DATE CREATED AUTHOR 11/29/2017 [facility] DATE CREATED AUTHOR AUTHOR'S ORGANIZ ATION 06/28/2022 [facility] DATE CREATED AUTHOR AUTHOR'S ORGANIZ ATION 07/24/2024 [facility] DATE CREATED AUTHOR AUTHOR'S ORGANIZ ATION 2024 [facility] DATE CREATED AUTHOR AUTHOR'S ORGANIZ ATION 09/29/2024 [facility] DATE CREATED AUTHOR AUTHOR'S ORGANIZ ATION 11/06/2024 [facility] DATE CREATED AUTHOR AUTHOR'S ORGANIZ ATION 11/14/[address] [facility] ical Center Patient Care team informatio n (unrecognized section and content) Team Status: Active Member Role Status Dates NON STAFF Primary Care Provider Active Team Status: Inactive Member Role Status Dates Aleida Frye APRN Attending Provider Active Start: July 20, 2024 End: July 20, 2024 NON STAFF Primary Care Provider Active Start: July 20, 2024 End: July 20, 2024 Team Status: Active Member Role Status Dates NON STAFF Primary Care Provider Active Start: July 20, 2024 Aleida Frye APRN Attending Provider Active Start: July 20, 2024 Team Status: Inactive Member Role Status Dates NON STAFF Primary Care Provider Active Start: July 20, 2024 End: July 20, 2024 Aleida Frye APRN Attending Provider Active Start: July 20, 2024 End: July 20, 2024 Goals (unrecognized section and content) Goals may be documented in a n alternate section FOR RECORDS PERTAINING TO PATIENTS WHO ARE [...] BE BASED ON THE PRIMARY CLINICAL RECORDS. [facility]. provides no warranty or guarantee of the accuracy or completeness of information in this document.
== END 2024-11-21 09:23 | disposition home or self-care (01) ==
LOC: PST 09:22
PROVIDERS: PCP Family Medicine; Visit Provider Surgery
DX: Z01.818 Encounter for other preprocedural examination (principal); Z12.11 Encounter for screening for malignant neoplasm of colon

== ENCOUNTER 2024-11-27 06:44 | Day surgery (SDC) | payer MEDICARE, OTHER, SELFPAY ==
--- NOTE | 2024-11-27 | OP_ITS ---
OPERATION DATE: 11/27/2024 PREOPERATIVE DIAGNOSIS: Colorectal screening. POSTOPERATIVE DIAGNOSIS: Normal colonoscopy to cecum. PROCEDURE: Colonoscopy to cecum. SURGEON: Tristen Castellano M.D. ANESTHESIA: Monitored anesthesia care. ESTIMATED BLOOD LOSS: Zero. INDICATIONS AND CONSENT: Patient is a 74-year-old female, presents for colorectal screening. Indications, risks, benefits, alternatives of proceeding with colonoscopy were explained extensively to the patient, including the risks of bleeding, colon perforation or anesthetic complications. All of her questions were answered. Informed consent was obtained. PROCEDURE: Patient brought to the operating room, placed in the left lateral decubitus position. Monitored anesthesia care was provided. Rectal exam was performed which showed no masses or blood. The scope was inserted into the anal canal. Under direct visualization was advanced. It was advanced to the cecum where cecal markings were clearly identified. There was noted to be a good prep. Upon withdrawal of the scope, mucosal surfaces were carefully examined. There were no mass lesions or polyps. No inflammatory changes or ulcerations. No significant diverticulosis. The scope was retroflexed in the anal canal. There were noted to be some small internal/external hemorrhoids, without active bleeding or inflammation. The scope was then withdrawn. Patient tolerated procedure well, was sent to recovery room in good condition. Following up screening colonoscopy should not be required. CC: Dr. Demario MERCADO
--- OUTSIDE RECORDS SUMMARY | 2024-11-27 06:47 | XMS_ITS | CCD ---
Author Organization [facility]ini[facility]yp[facility] Care Team Providers Care Senior It Auditor Name Role Phone DR YOANNA CORONEL Consulting [...] Admitting Unavailable Asim Hanks Primary Care Physician [phone] NON STAFF Primary Care Provider UnavailAleida Robles APRN Attending Provider [phone] Aleida Frye Attending Unavailable Aleida Frey Admitting Unavailable NON STAFF Primary Care Unavailable [...] Translations: [statins] Drug allergy Muscle pain (finding) [facility] Family Medicine Arnie (2 sources) No Known Medication Allergies; Translations: [No Known Medication Allergies] Propensity to adverse reactions (disorder) [facility] Repository Medications Current Medications Medication Drug Class(es) Dates Sig (Normalized) Sig (Original) amLODIPine 10 mg oral tablet (5 sources) Dihydropyridine Calcium Channel Liliana Start: 09-26-2024 take 1 tablet by mouth once daily amLODIPine 10 mg Tab 10 mg = 1 tab(s), Oral, Daily, # 90 tab(s), Refills(s) 1, Pharmacy: [facility]/pharmacy #[id number], 147, cm, 09/26/24 9:51:00 EDT, Height/Length [...] # 90 tab(s), Refills(s) 1, Pharmacy: [facility]/pharmacy #[id number], 147.3, cm, 08/24/23 9:10:00 EDT, Height/Length [...] AM EDT With: Asim Hanks MD Where: [address] [address]- Monday2025 11:00 AM EDT With: Where: [address] [phone]- Medications What How Much When Instructions Unchanged amlodipine (amLODIPine 10 mg Tab) 1 Tablets By Mouth Every day Contact prescribing physician if questions or concerns Unchanged Non-Formulary Medication (spring hiawatha pre and pro biotic) See instructions Contact [...] for choosing us for your care. Normal [facility] Ambulatory Visit Summaryon 0 10-01-2024 Ambulatory [...] Follow-Up Appointments Monday2025 11:00 AM EDT Where: [place] [address]- You Need to Complete the Following Comprehensive [...] referral to the Chronic Care Navigators : Armenian What is your housing situation today? : I have housing You or Family Gone Without Household Needs Past Year : No No Transport to Med Appts/Meetings/Work/Med s/Necessities : No Currently Live (more content not included)... Normal [facility] Comment on above: Result Comment: Elec tronically Signed By: Asim Hanks MD\.br\Date and Time Signed: 10/01/24 13:53 EDT\.br\Electronically Co-Signed By: Alicia Jara\.br\Date and Time Co-Signed: 09/26/24 10:40 EDT .Interpretation:on 5 HCV Ab IA Ql Comment Invalid Interpretation Code [facility] Comment on above: Result Comment: Not infected with HCV unless early or acute infection is suspected (which may be delayed in an immunocompromised individual), or other evidence exists to indicate HCV infection. Performed at: [facility] [id number] PhD Maya Walker Performed By: #### 2 [id number] #### [facility] [address] [place] [address] HCV Antibody RFX to Quant PC Danish 2024 HCV Ab IA Ql Non-Reactive Invalid Interpretation Code Non Reactive [facility] Comment on above: Result Comment: Perf ormed at: [facility] [id number] PhD Maya Walker Performed By: #### 2 [id number] #### [facility] [address] [place] [address] Ambulatory Visit Summaryon 0 09-26-2024 Ambulatory Visit [...] Appointments 2024 11:00 AM EDT With: Asim aHnks MD Where: [address] [address]- Monday2025 11:00 AM EDT With: Where: [address] [address]- Medications What How Much When Instructions Unchanged amlodipine (amLODIPine 10 mg Tab) 1 Tablets By Mouth Every day Unchanged Non-Formulary Medication (spring hiawatha pre and pro biotic) See instructions Allergies [...] for choosing us for your care. Normal [facility] CHEMISTRYOrdered By: SYSTEM SYSTEM on 09-26-2024 [...] 09-26-2024 Albumin [Mass/Vol] 4.3 g/dL Normal 3.3-5.0 [facility] Comment on above: Performed By: #### 2 [id number] #### [facility] [address] [place] [address] Albumin/Globulin (S) [Mass conc ratio] 1.4 Normal 1.1-2.2 [facility] Comment on above: Performed By: #### 2 [id number] #### [facility] [address] [place] [address] ALP [Catalytic activity/Vol] 64 Int._Unit/L Normal 21-98 [facility] Comment on above: Performed By: #### 2 [id number] #### [facility] [address] [place] [address] ALT No additional P-5'-P [Catalytic activity/Vol] 12 Int._Unit/L Normal 6-46 [facility] Comment on above: Performed By: #### 2 [id number] #### [facility] [address] [place] [address] Anion gap [Moles/Vol] 11 mmol/L Normal 6-16 [facility] Comment on above: Performed By: #### 2 [id number] #### [facility] [address] [place] [address] AST [Catalytic activity/Vol] 15 Int._Unit/L Normal 5-43 [facility] Comment on above: Performed By: #### 2 [id number] #### [facility] [address] [place] [address] Bilirubin [Mass/Vol] 0.6 mg/dL Normal 0.0-1.1 [facility] Comment on above: Performed By: #### 2 [id number] #### [facility] [address] [place] [address] Calcium [Mass/Vol] 9.2 mg/dL Normal 8.9-11.1 [facility] Comment on above: Performed By: #### 2 [id number] #### [facility] [address] [place] [address] Chloride [Moles/Vol] 105 mmol/L Normal 101-111 [facility] Comment on above: Performed By: #### 2 [id number] #### [facility] [address] [place] [address] CO2 [Moles/Vol] 26 mmol/L Normal 21-31 [facility] Comment on above: Performed By: #### 2 [id number] #### [facility] [address] [place] [address] Creatinine [Mass/Vol] 0.6 mg/dL Normal 0.5-1.3 [facility] Comment on above: Performed By: #### 2 [id number] #### [facility] [address] [place] [address] Globulin (S) [Mass/Vol] 3.0 g/dL Normal 1.4-4.0 [facility] Comment on above: Performed By: #### 2 [id number] #### [facility] [address] [place] [address] Glucose [Mass/Vol] 102 mg/dL Normal 55-199 [facility] Comment on above: Performed By: #### 2 [id number] #### [facility] [address] [place] [address] Potassium [Moles/Vol] 3.9 mmol/L Normal 3.5-5.3 [facility] Comment on above: Performed By: #### 2 [id number] #### [facility] [address] [place] [address] Protein [Mass/Vol] 7.3 g/dL Normal 6.0-7.8 [facility] Comment on above: Performed By: #### 2 [id number] #### [facility] [address] [place] [address] Sodium [Moles/Vol] 138 mmol/L Normal 135-145 [facility] Comment on above: Performed By: #### 2 [id number] #### [facility] [address] [place] [address] Urea nitrogen [Mass/Vol] 15 mg/dL Normal 5-21 [facility] Comment on above: Performed By: #### 2 [id number] #### [facility] [address] [place] [address] Urea nitrogen/Creatinine [Mass ratio] 25 No Units High 10-20 [facility] Comment on above: Performed By: #### 2 [id number] #### [facility] [address] [place] [address] Family Medicine Office/Clini c Noteon 09-26-2024 Family [...] immunization status assessed 1030F Lab Specimen Collect 45070 Medication list documented in medical record 1159F [...] to not smoke. Ordered: Lab Specimen Collect [id number] 5. Hypercholesterolemia (E78.00: Pure hypercholesterolemia, unspecified) - No statins due to intolerance. - Emphasis on lifestyle management. Ordered: Lab Specimen Collect 06121 Lipid Panel 7. Osteoporosis (M81.0: Age-related osteoporosis without current pathological fracture) - Vitamin D and K2 supplements discussed. Ordered: Lab Specimen Collect [id number] Orders: amlodipine, 10 mg = 1 tab(s), Oral, Daily, # 90 tab(s), Refills(s) 1, Pharmacy: [facility]/pharmacy #[id number], 147, cm, 09/26/24 9:51:00 EDT, Height/Length [...] tobacco non-user 1036F Depression Screening Negative 3352F [facility] Internal Ambulatory Referral Functional status assessed 1170F [...] primary hype (more content not included)... Normal [facility] Comment on above: Result Comment: Elec tronically Signed By: Demario DSOUZA, Asim Bradford.br\Date and Time Signed: 09/26/24 11:24 EDT Lipid Panelon 09-26-2024 Cholesterol [Mass/Vol] 278 mg/dL High 120-200 [facility] Comment on above: Performed By: #### 2 [id number] #### [facility] [address] [place] [address] Cholesterol in HDL [Mass/Vol] 60 mg/dL Invalid Interpretation Code [facility] Comment on above: Result Comment: '>= 60 LOW RISK' '<= 40 HIGH RISK' Performed By: #### 2 [id number] #### [facility] [address] [place] [address] Cholesterol in LDL [Mass/Vol] 192 mg/dL High <=129 [facility] Comment on above: Performed By: #### 2 [id number] #### [facility] [address] [place] [address] Cholesterol in VLDL [Mass/Vol] 29 mg/dL Normal 7-40 [facility] Comment on above: Performed By: #### 2 [id number] #### [facility] [address] [place] [address] Triglyceride [Mass/Vol] 146 mg/dL Normal <=149 [facility] Comment on above: Performed By: #### 2 [id number] #### [facility] [address] [place] [address] U MA/Cr Ratioon 09-26-2024 Albumin DL <= 20 mg/L (U) [Mass/Vol] 1.1 mg/dL Normal 0.0-1.9 [facility] Comment on above: Performed By: #### 1 [id number] #### [facility] [address] [place] [address] Albumin/Creatinine DL <= 20 mg/L (U) [Mass ratio] 16.1 mg/gm Cr Normal .0-30.0 [facility] Comment on above: Result Comment: 30-3 00 mg/g Cr indicates an increased risk for diabetic nephropathy. >300 mg/g Cr is consistent with clinical nephropathy. Performed By: #### 1 [id number] #### [facility] [address] [place] [address] U Creatinine 68.2 mg/dL Invalid Interpretation Code [facility] Comment on above: Performed By: #### 1 [id number] #### [facility] [address] [place] [address] eGFRon 09-26-2024 eGFR 94 mL/min/1.73 m2 Normal >=59 [facility] Comment on above: Performed By: #### 1 [id number] #### [facility] [address] [place] [address] X-ray reportOrdered By: Adarsh King on 07-20-2024 Study report [facility] Main [address] [address] XRay Report Signed Patient: Azul Michelle MR#: [id number] : 1950 Acct:[id number] Age/Sex: 73 / F ADM Date: Loc: XDUCLY Room: Type: [facility] Attending Dr: Aleida Frye APRN Copies to: lAeida Frye APRN~ Ordering Provider: Aleida Frye APRN [...] Franklin King M.D.07/20/2024 12:16 PM Dictation Location: [employer] Transcribed By: ALONDRA 07/20/241215 Dictated By: Franklin King DO 07/20/241214 Signed By: 07/20/24 121 [facility] XR elbow RT min 3V*on 2024 XR elbow RT min 3V* [facility] [place] [address] XRay Report Signed Patient: Azul Michelle MR#: [id number] : 1950 Acct:[id number] Age/Sex: 73 / F ADM Date: 07/20/24 Loc: XDUC Room: Type: [facility] Attending Dr: Aleida Frye GRADUATE STUDENT INSTRUCTOR Copies to: Aleida Frye APRN Ordering Provider: [...] Franklin King M.D.07/20/2024 12:16 PM Dictation Location: [employer] Transcribed By: [facility] 07/20/24 1216 Dictated By: Franklin King DO 07/20/241214 Signed By: 07/20/24 121 [facility] Ambulatory Visit Summaryon 1 Ambulatory [...] Appointments 2024 9:30 AM EDT With: Where: [address] [address]- 2024 10:30 AM EDT With: Asim Hanks MD Where: [address] [address]- Medications What How Much When Instructions Unchanged amlodipine (amLODIPine 10 mg Tab) 1 Tablets By Mouth Every day Pickup at [facility]/pharmacy #[id number] Pharmacy Information [facility]/pharmacy #[id number]: [address], [place] [phone] Allergies No Known Allergies No Known Medication [...] Medicine Office/Clinic Note Family Medicine Office/Clinic Note [facility] Staff Azul is a 73 year old female presenting for 6 month follow up htn In september increased her [facility] Patient is here for follow [...] # 90 tab(s), Refills(s) 1, Pharmacy: [facility]/pharmacy #[id number], 147, cm, 03/26/24 9:07:00 EDT, Height/Length [...] influenza virus vaccine, inactivated 03/05/2015 Recorded Normal [facility] Comment on above: Result Comment: Elec [...] EDT With: Demario DSOUZA, Asim Palmer Where: [address] [address]- 2024 9:30 AM EDT With: Where: [address] [address]- Medications What How Much When Instructions Unchanged [...] for choosing us for your care. Normal [facility] Family Medicine Office/Clini c Noteon 02-12-2024 [...] # 21 tab(s), Refills(s) 0, Pharmacy: [facility]/pharmacy #[id number], 147, cm, 02/12/24 13:52:00 EDT, Height/Length [...] Current, Wine (more content not included)... Normal [facility] Comment on above: Result Comment: Elec tronically Signed By: Demario DSUOZA, Asim Chou\Date and Time Signed: 02/12/24 14:02 [...] A1Con 2022 ADA RECOMMENDATION SEE BELOW Normal [facility] Comment on above: Result Comment: ADA RECOMMENDED LIMIT 4.0 - 6.0 ADA THERAPEUTIC TARGET < 7.0 ACTION SUGGESTED > 7.0 Performed By: #### A 1C #### [facility] [address] [address] [address] Benitez Prescott Glucose [Mass/Vol] 111 mg/dL Normal [facility] Comment on above: Performed By: #### A 1C #### [facility] [address] [address] [address] Benitez Prescott HbA1c (Bld) [Mass fraction] 5.5 % Normal 4.5-6.2 [facility] Comment on above: Performed By: #### A 1C #### [facility] [address] [place] [address] Dr. Benitez Prescott XR DEXA BONE DENSITYon [...] by: JOSE MARADIAGA Date: 2022-06-23 08:41 Normal [facility] PAP ACOG PANEL 2: 30 to 65on 06-22-2022 . . Normal [facility] Comment on above: Performed By: #### 4 [id number] #### [facility] [address] [place] [address] Dr. Benitez Prescott Age Gdln ACOG Testing Comment Normal [facility] Comment on above: Result Comment: <21 or >65 or no age provided Performed By: #### 4 [id number] #### [facility] [address] [place] [address] Dr. Benitez Prescott DIAGNOSIS: Comment Normal [facility] Comment on above: Result Comment: NEGA TIVE FOR INTRAEPITHELIAL LESION OR MALIGNANCY. REACTIVE CELLULAR CHANGES AND/OR REPAIR ARE PRESENT. CELLULAR CHANGES ASSOCIATED WITH ATROPHY ARE PRESENT. Performed By: #### 4 [id number] #### [facility] [address] [place] [address] Dr. Benitez Prescott Electronically signed by: Comment Normal [facility] Comment on above: Result Comment: Sabra Hernandez MD, Pathologist Performed By: #### 4 [id number] #### [facility] [address] [place] [address] Dr. Benitez Prescott Methodology: Comment Normal [facility] Comment on above: Result Comment: This liquid based ThinPrep(R) pap test was screened with the use of an image guided system. Performed By: #### 4 [id number] #### [facility] [address] [place] [address] Dr. Benitez Prescott Note: Comment Normal [facility] Comment on above: Result Comment: The Pap smear is a screening test designed to aid in the detection of premalignant and malignant conditions of the uterine cervix. It is not a diagnostic procedure and should not be used as the sole means of detecting cervical cancer. Both false-positive and false-negative reports do occur. . Performed By: #### 4 [id number] #### [facility] [address] [place] [address] Dr. Benitez Prescott Performed by: Comment Normal [facility] Comment on above: Result Comment: Sonny Amador, Elevator Mechanic (ASCP) Performed By: #### 4 [id number] #### [facility] [address] [place] [address] Dr. Benitez Prescott Specimen adequacy: Comment Normal [facility] Comment on above: Result Comment: Sati sfactory for evaluation. Endocervical component may not be distinguished in cases of atrophy. Performed By: #### 4 [id number] #### [facility] [address] [place] [address] Dr. Benitez Prescott CBC AUTO DIFFon 06-18-2022 BASO # 0.1 103/ul Normal 0.0-0.1 [facility] Comment on above: Performed By: #### C BC #### [facility] [address] [place] [address] Dr. Benitez Prescott Basophils/100 WBC (Bld) 0.7 % Normal 0.2-2.0 [facility] Comment on above: Performed By: #### C BC #### [facility] [address] [place] [address] Dr. Benitez Prescott EO # 0.1 103/ul Normal 0.0-0.7 [facility] Comment on above: Performed By: #### C BC #### [facility] [address] [place] [address] Dr. Benitez Prescott Eosinophils/100 WBC (Bld) 1.6 % Normal 0.9-7.0 [facility] Comment on above: Performed By: #### C BC #### [facility] [address] [place] [address] Dr. Benitez Prescott Erythrocyte distribution width (RBC) [Ratio] 13.3 % Normal 11.0-15.0 [facility] Comment on above: Performed By: #### C BC #### [facility] [address] [place] [address] Dr. Benitez Prescott Hematocrit (Bld) [Volume fraction] 42.1 % Normal 36.0-48.0 [facility] Comment on above: Performed By: #### C BC #### [facility] [address] [place] [address] Dr. Benitez Prescott Hemoglobin (Bld) [Mass/Vol] 14.3 g/dL Normal 12.0-16.0 [facility] Comment on above: Performed By: #### C BC #### [facility] [address] [place] [address] Dr. Benitez Prescott IG # 0.02 10e3/ul Normal 0.00-0.03 [facility] Comment on above: Performed By: #### C BC #### [facility] [address] [place] [address] Dr. Benitez Prescott IG % 0.2 % Normal 0.0-0.5 [facility] Comment on above: Performed By: #### C BC #### [facility] [address] [place] [address] Dr. Benitez Prescott LYMPH # 3.9 103/ul Critically high 1.2-3.8 [facility] Comment on above: Performed By: #### C BC #### [facility] [address] [place] [address] Dr. Benitez Prescott Lymphocytes/100 WBC (Bld) 48.3 % Normal 20.5-60.0 [facility] Comment on above: Performed By: #### C BC #### [facility] [address] [place] [address] Dr. Benitez Prescott MANUAL DIFF REQ NO Normal [facility] Comment on above: Performed By: #### C BC #### [facility] [address] [place] [address] Dr. Benitez Prescott MCH (RBC) [Entitic mass] 28.8 pg Normal 26.7-34.0 [facility] Comment on above: Performed By: #### C BC #### [facility] [address] [place] [address] Dr. Benitez Prescott MCHC (RBC) [Mass/Vol] 34.0 g/dL Normal 29.9-35.2 [facility] Comment on above: Performed By: #### C BC #### [facility] [address] [place] [address] Dr. Benitez Prescott MCV (RBC) [Entitic vol] 84.9 fL Normal 81.0-99.0 [facility] Comment on above: Performed By: #### C BC #### [facility] [address] [place] [address] Dr. Benitez Prescott MONO # 0.7 103/ul Normal 0.3-0.8 [facility] Comment on above: Performed By: #### C BC #### [facility] [address] [id number] [address] Benitez Prescott Monocytes/100 WBC (Bld) 8.8 % Normal 1.7-12.0 [facility] Comment on above: Performed By: #### C BC #### [facility] [address] [address] [address] Benitez Prescott NEUT # 3.2 103/ul Normal 1.4-6.5 [facility] Comment on above: Performed By: #### C BC #### [facility] [address] [place] [address] Dr. Benitez Prescott Neutrophils/100 WBC (Bld) 40.4 % Critically low 43.0-75.0 [facility] Comment on above: Performed By: #### C BC #### [facility] [address] [place] [address] Dr. Benitez Prescott Platelet mean volume (Bld) [Entitic vol] 10.6 fL Normal 9.5-13.5 [facility] Comment on above: Performed By: #### C BC #### [facility] [address] [place] [address] Dr. Benitez Prescott PLT 309 103/ul Normal 150-450 [facility] Comment on above: Performed By: #### C BC #### [facility] [address] [place] [address] Dr. Benitez Prescott RBC 4.96 106/ul Normal 4.20-5.40 [facility] Comment on above: Performed By: #### C BC #### [facility] [address] [place] [address] Dr. Benitez Prescott WBC 8.1 103/ul Normal 4.0-11.0 [facility] Comment on above: Performed By: #### C BC #### [facility] [address] [place], [place] [id number] Dr. Benitez Prescott LIPID PROFILEon 06-18-2022 CHOL-HDL RATIO NORM SEE BELOW Normal [facility] Comment on above: Result Comment: 3.3 - 4.4 LOW RISK 4.4 - 7.1 AVERAGE RISK 7.1 - 11.0 MODERATE RISK >11.0 HIGH RISK Performed By: #### C MP, LIPID #### [facility] [address] [address] [address] Benitez Prescott Cholesterol [Mass/Vol] 278 mg/dL Critically high <=200 [facility] Comment on above: Performed By: #### C MP, LIPID #### [facility] [address] [address] [address] Benitez Prsecott Cholesterol in HDL [Mass/Vol] 67 mg/dL Critically high 40-60 [facility] Comment on above: Performed By: #### C MP, LIPID #### [facility] [address] [address] [address] Benitez Prescott Cholesterol in LDL [Mass/Vol] 171.4 mg/dL Normal [facility] Comment on above: Performed By: #### C MP, LIPID #### [facility] [address] [place] [address] Dr. Benitez Prescott Cholesterol.total/Cho lesterol in HDL [Mass ratio] 4.1 {ratio} Normal [facility] Comment on above: Performed By: #### C MP, LIPID #### [facility] [address] [address] [address] Benitez Prescott HDL NORMAL > or = 60 mg/dl - LO W CARDIOVASCULAR RISK <40 mg/dl - HIGH CARDIOVASCULAR RISK Normal [facility] Comment on above: Performed By: #### C MP, LIPID #### [facility] [address] [address] [address] Benitez Prescott LDL CALC NORMAL SEE BELOW Normal [facility] Comment on above: Result Comment: <100 mg/dl OPTIMAL 100 - 129 mg/dl NEAR OR ABOVE OPTIMAL 130 - 159 mg/dl BORDERLINE HIGH 160 - 189 mg/dl HIGH >190 mg/dl VERY HIGH Performed By: #### C MP, LIPID #### [facility] [address] [address] [address] Benitez Prescott Triglyceride [Mass/Vol] 198 mg/dL Critically high <=150 [facility] Comment on above: Performed By: #### C MP, LIPID #### [facility] [address] [address] [address] Benitez Prescott VLDL CALC 39.6 mg/dL Normal [facility] Comment on above: Performed By: #### C MP, LIPID #### [facility] [address] [place] [address] Dr. Benitez Prescott PROF 14(COMP METB)on 023 Albumin [Mass/Vol] 3.8 g/dL Normal 3.4-5.0 [facility] Comment on above: Performed By: #### C MP, LIPID #### [facility] [address] [place] [address] Dr. Benitez Prescott Albumin/Globulin [Mass ratio] 1.0 {ratio} Normal [facility] Comment on above: Performed By: #### C MP, LIPID #### [facility] [address] [place] [address] Dr. Benitez Prescott ALP [Catalytic activity/Vol] 69 U/L Normal 46-116 [facility] Comment on above: Performed By: #### C MP, LIPID #### [facility] [address] [place] [address] Dr. Benitez Prescott ALT [Catalytic activity/Vol] 24 U/L Normal 14-59 [facility] Comment on above: Performed By: #### C MP, LIPID #### [facility] [address] [place] [address] Dr. Benitez Prescott Anion gap [Moles/Vol] 11.3 mmol/L Normal [facility] Comment on above: Performed By: #### C MP, LIPID #### [facility] [address] [place] [address] Dr. Benitez Prescott AST [Catalytic activity/Vol] 16 U/L Normal 15-37 [facility] Comment on above: Performed By: #### C MP, LIPID #### [facility] [address] [place] [address] Dr. Benitez Prescott Bilirubin [Mass/Vol] 0.7 mg/dL Normal 0.2-1.0 [facility] Comment on above: Performed By: #### C MP, LIPID #### [facility] [address] [place] [address] Dr. Benitez Prescott Calcium [Mass/Vol] 9.2 mg/dL Normal 8.5-10.1 [facility] Comment on above: Performed By: #### C MP, LIPID #### [facility] [address] [place] [address] Dr. Benitez Prescott Chloride [Moles/Vol] 104 mmol/L Normal 98-107 [facility] Comment on above: Performed By: #### C MP, LIPID #### [facility] [address] [place] [address] Dr. Benitez Prescott CO2 [Moles/Vol] 29.7 mmol/L Normal 21.0-32.0 [facility] Comment on above: Performed By: #### C MP, LIPID #### [facility] [address] [place] [address] Dr. Benitez Prescott Creatinine [Mass/Vol] 0.82 mg/dL Normal 0.55-1.02 [facility] Comment on above: Performed By: #### C MP, LIPID #### [facility] [address] [place] [address] Dr. Benitez Prescott EGFR-AF SCOTTISH >60 Normal >=60 [facility] Comment on above: Performed By: #### C MP, LIPID #### [facility] [address] [place] [address] Dr. Benitez Prescott EGFR-NON AF SCOTTISH >60 Normal >=60 [facility] Comment on above: Performed By: #### C MP, LIPID #### [facility] [address] [place] [address] Dr. Benitez Prescott Globulin (S) [Mass/Vol] 3.7 g/dL Normal [facility] Comment on above: Performed By: #### C MP, LIPID #### [facility] [address] [place] [address] Dr. Benitez Prescott Glucose [Mass/Vol] 128 mg/dL Critically high 74-106 [facility] Comment on above: Performed By: #### C MP, LIPID #### [facility] [address] [place] [address] Dr. Benitez Prescott Potassium [Moles/Vol] 4.0 mmol/L Normal 3.5-5.1 [facility] Comment on above: Performed By: #### C MP, LIPID #### [facility] [address] [address] [address] Benitez Prescott Protein [Mass/Vol] 7.5 g/dL Normal 6.4-8.2 [facility] Comment on above: Performed By: #### C MP, LIPID #### [facility] [address] [address] [address] Benitez Prescott Sodium [Moles/Vol] 141 mmol/L Normal 136-145 [facility] Comment on above: Performed By: #### C MP, LIPID #### [facility] [address] [address] [address] Benitez Prescott Urea nitrogen [Mass/Vol] 15.0 mg/dL Normal 7.0-18.0 [facility] Comment on above: Performed By: #### C MP, LIPID #### [facility] [address] [address] [address] Benitez Prescott Urea nitrogen/Creatinine [Mass ratio] 18.3 mg/mg Normal [facility] Comment on above: Performed By: #### C MP, LIPID #### [facility] [address] [place] [address] Dr. Benitez Prescott MG MAMM SCREEN 3D BEENA CADon 05-17-2022 MG MAMM SCREEN 3D BEENA CAD Patient: AZUL MICHELLE Exam Date: 05/17/2022 : 1950 Gender:F Ordering : DR YOANNA CORONEL . Admission #: [id number] Family : Order #: [id number] CLICK HERE TO VIEW EXAM RADIOLOGY REPORT [...] breast cancer at age 59. LOCATION: [facility] BREAST COMPOSITION: Heterogeneously dense,which may obscure [...] M.D. on 05/17/2022 at 15:04 Normal [facility] CYTOLOGYon 02-28-2017 CYTOLOGY Specimen #: [id number] Physician: YOANNA GRIMESPECARISTIDES SUBMITTEDA: CERVICAL, SCREENING, FLUID FI NAL DIAGNOSISA. CERVICAL, SCREENING, FLUIDSatisfactory for interpretation.Negative for intraepithelial lesion or malignancy.This specimen has been analyzed by the ThinPrep Imaging System, anautomated imaging and review system, which assists the laboratory inevaluating cells on ThinPrep Pap tests. Following automated imaging,selected braun from every slide are reviewed by a arboriculturist.JENIFER Gibbs (ASCP) (Electronic Signature) CL INICAL DATA Menstrual History:Post-Menopausal Clinical History:ROUTINESTAINSA: CERVICAL, SCREENING, FLUID THIN PREP Ajay Montoya M.D., Laboratory DirectorPatient ID #: [id number] of Report: 03/02/2017Date of Procedure: 02/28/2017Date of Receipt: 03/01/2017Submitted by: YOANNA CORONELLocation: Diagnostic interpretation performed at [facility], [address] [place] [address].The Pap Smear is a screening test for cervical cancer. False negativeresults occur with all screening tests, emphasizing the need forrescreening at recommended intervals, and clinical correlation. Normal [facility] Comment on above: Performed By: #### C ####See report for performing lab information. Vital Signs Date Time Vital Sign Value Performing Clinician Faci lity 07-20-2024 11:42-0500 Body height 149.86 cm [facility] 07-20-2024 11:42-0500 Body mass index (BMI) [Ratio] 38.7 kg/m2 [facility] 07-20-2024 11:42-0500 Body temperature 97.8 [degF] [facility] 07-20-2024 11:42-0500 Body weight 87.14 kg [facility] 07-20-2024 11:42-0500 Diastolic blood pressure 84 mm[Hg] [facility] 07-20-2024 11:42-0500 Heart rate 97 /min [facility] 07-20-2024 11:42-0500 SaO2% (BldA) [Mass fraction] 96 % [facility] 07-20-2024 11:42-0500 Systolic blood pressure 154 mm[Hg] [facility] Encounters Encounter Date Encounter Type Care Provider Facility Start: 09-29-2025 ambulatory MD Asim Hanks Facil ity:[facility] Start: 03-27-2025 ambulatory MD [facility] Start: 11-12-2024 End: 11-12-2024 ambulatory Tristen SORENSEN Facility: [facility] Start: 11-12-2024 End: 11-12-2024 Patient encounter procedure Tristen SORENSEN [facility] Start: 09-26-2024 End: 04-24-2025 Lab Drop off Asim Hanks [facility] Start: 09-26-2024 End: 09-26-2024 ambulatory Asim Hanks Facility:[facility] Start: 09-26-2024 End: 09-26-2024 ambulatory MD Asim Hanks Facility:[facility] Start: 07-20-2024 End: 07-20-2024 ambulatory NON STAFF [facility] Work Phone: Start: 07-20-2024 End: 07-20-2024 Patient encounter procedure [facility] Work Phone: Start: 03-26-2024 End: 03-26-2024 ambulatory MD Asim Hanks Facility:[facility] Start: 02-12-2024 End: 02-12-2024 ambulatory [facility] Start: 08-24-2023 End: 08-24-2023 Lab Drop off Asim Hanks [facility] Start: 06-24-2022 End: 06-25-[address] [...] Immunization Date Immunization Notes Care Provider [facility] 03-26-2024 influenza, high dose seasonal, preservative-free; Translations: [Fluzone High Dose Vaccine] Asim Hanks [facility] 04-07-2021 SARS-CoV-2 (COVID-19 ) mRNA BNT-162b2 vax Asim Hanks [facility] Comment on above: Result Comment: 2022: TPV70 08-04-2020 SARS-CoV-2 (COVID-19 ) mRNA BNT-162b2 vafany Hanks [facility] Comment on above: Result Comment: 2022: TPV70 07-14-2020 SARS-CoV-2 (COVID-19 ) mRNA BNT-162b2 jo Hanks [facility] Comment on above: Result Comment: 2022: TPV70 03-05-2015 influenza virus vaccine, unspecified formulation Asim Hanks [facility] Payers Date Payer Category Payer Self-pay 2022 Medicare [id number] 2020 Private Health Insurance [id number] 2020 Unknown [id number] 1959 Medicare [id number] 1959 Unknown [id number] 1950 Unknown [id number] 2.16.84 [id number] 1950 Unknown [id number] 2.16.84 0.1.106037.3.579.2.593 1950 Unknown [id number] 2.16.84 0.1.991814.3.579.2.593 1950 Unknown [id number] 2.16.84 0.1.302416.3.579.2.593 1950 Unknown [id number] 2.16.84 0.1.516944.3.579.2.593 1950 Unknown [id number] 2.16.8 40.1.166835.3.579.2.727 1950 Unknown [id number] 2.16.8 40.1.546135.3.579.2.727 1950 Unknown [id number] 2.16.8 40.1.787753.3.579.2.727 1950 Unknown [id number] 2.16.8 40.1.858600.3.579.2.727 1950 Unknown [id number] 2.16.8 40.1.624726.3.579.2.727 1950 Unknown [id number] 2.16.8 40.1.008809.3.579.2.727 1950 Unknown [id number] 2.16.8 40.1.955855.3.579.2.727 1950 Unknown [id number] 2.16.8 40.1.591592.3.579.2.727 Unknown [id number] 2.16.8 40.1.542355.3.579.2.531 Social History Date Type Detail Facility Start: 08-24-2023 End: 11-12-2024 Tobacco smoking status Never smoked tobacco (finding) [facility] Comment on above: denies use. Tobacco smoking status Never [facility] Comment on above: denies use. Sex Assigned At Female [facility] Start: 07-20-2024 End: 07-21-2024 Sex Female (finding) [facility] Start: 1950 Sex Assigned At Female [facility] Sexual Orientation [facility] Clinical Notes 03-26-2024 to 11-12-2024 Note [...] mg= 1 tab(s), Oral, Daily, 1 refills [place] pre and pro biotic, See Instructions Allergies [...] TPV70 influenza virus vaccine, inactivated 03/05/2015 Recorded [facility] Comment on above: Result Comment: Elec [...] for Disease Control and Prevention: cdc.gov ??? [place] Heart Association: heart.org ??? National Heart, Lung, and Blood [place]: nhlbi.nih.gov This information is not intended to replace advice given to you by your health care provider. Make sure you discuss any questions you have with your health care provider. Document Revised: 02/09/2023 Document Reviewed: 02/02/2023 [employer] Patient Education ? 2023 [email or web address]. [facility] 07-20-2024 Evaluation note Diagnosis Onset Date Resolution Strain of elbow, left acute July 20, 025 11:41am [facility] Work Phone: [phone]) 184-246510-22-2024 NotePatient Education Nutrition BMI for Adults Body [...] for Disease Control and Prevention: cdc.gov ? [place] Heart Association: heart.org ? National Heart, Lung, and Blood [place]: nhlbi.nih.gov This information is not intended to replace advice given to you by your health care provider. Make sure you discuss any questions you have with your health care provider. Document Revised: 02/09/2023 Document Reviewed: 02/02/2023 Elsevier Patient Education ? 2023 [employer] Evaluation + Plan note Future Appointments Appointment Date:09/21/2023 09:30:00 AM Scheduled Provider: Location:[facility] Appointment Type:FM Medicare Wellness [facility]ments Appointment Date:03/27/2025 11:00:00 AM Scheduled Provider:Asim Hanks MD Location:[facility] Appointment Type:FM Open Appointment Date:09/29/2025 11:00:00 AM Scheduled Provider: Location:[facility] Appointment Type:FM Medicare Wellness Subsequent Diagnostic Tests Pending * HCV Antibody RFX to Quant PCR 09/26/24 [facility] Evaluation + Plan note Future Appointments Appointment Date:03/27/2025 11:00:00 AM Scheduled Provider:Asim Hanks MD Location:[facility] Appointment Type:FM Open Appointment Date:09/29/2025 11:00:00 AM Scheduled Provider: Location:[facility] Appointment Type:FM Medicare Wellness Subsequent [facility] Evaluation noteNo assessment information available [facility] Work Phone: Hospital course Narrative No data available for this section [facility] No data available for this section [facility] No data available for this section [facility] Summary Purpose Family History No Family [...] section and content) DATE CREATED AUTHOR 11/29/2017 [facility] DATE CREATED AUTHOR AUTHOR'S ORGANIZ ATION 06/28/2022 [facility] DATE CREATED AUTHOR AUTHOR'S ORGANIZ ATION 07/24/2024 [facility] DATE CREATED AUTHOR AUTHOR'S ORGANIZ ATION 2024 [facility] DATE CREATED AUTHOR AUTHOR'S ORGANIZ ATION 09/29/2024 [facility] DATE CREATED AUTHOR AUTHOR'S ORGANIZ ATION 11/06/2024 [facility] DATE CREATED AUTHOR AUTHOR'S ORGANIZ ATION 11/14/2024 [facility] Patient Care team informatio n [...] BE BASED ON THE PRIMARY CLINICAL RECORDS. [facility] [employer] [facility]. provides no warranty or guarantee of the accuracy or completeness of information in this document.
[2024-11-27 07:00] VITALS: BP 177/92; PULSE 98; TEMP 35.7; O2SAT 95; BMI 39.1
[2024-11-27] MEDS: 0.9 % SODIUM CHLORIDE 500 ML 50 ML IV (07:24)
[2024-11-27 08:24] VITALS: BP 110/57; PULSE 64; TEMP 36.3; O2SAT 97
[2024-11-27 08:39] VITALS: BP 124/76; PULSE 72; O2SAT 97
[2024-11-27 08:54] VITALS: BP 133/74; PULSE 70; O2SAT 96
== END 2024-11-27 08:54 | disposition home or self-care (01) ==
LOC: SURGOUT 06:45
PROVIDERS: PCP Family Medicine; Visit Provider Surgery
PROC: (CPT G0121; principal; 2024-11-27 07:55)
DX: Z12.11 Encounter for screening for malignant neoplasm of colon (principal); K64.8 Other hemorrhoids; I10 Essential (primary) hypertension; E78.00 Pure hypercholesterolemia, unspecified; M81.0 Age-related osteoporosis without current pathological fracture; Z90.49 Acquired absence of other specified parts of digestive tract; E66.9 Obesity, unspecified; Z68.41 Body mass index [BMI] 40.0-44.9, adult
CPT/HCPCS: G0121; J2704

== ENCOUNTER 2025-05-21 08:15 | Outpatient (OUT) | payer MEDICARE, OTHER, SELFPAY ==
--- NOTE | 2025-05-21 08:17 | MM_ITS ---
Patient Name: TANI LOGAN MR#: [id number] : 1950 Exam Date: 05/21/2025 Ordering Doctor: JEANA GARCIA . RADIOLOGY REPORT PROCEDURE: MM TOMOSYNTHESIS SCREENING BI COMPARISON: MM TOMOSYNTHESIS SCREENING BI, 05/20/2024. MM TOMOSYNTHESIS SCREENING BI, 05/19/2023. MG MAMM SCREEN 3D BEENA CAD, 05/17/2022. MG MAMM BEENA SCRN W CAD DIG, 03/26/2013. INDICATIONS: Screening Calculator Name NCI Breast Cancer Risk Assessment Tool 5 Year Breast Cancer Risk 1.40% Lifetime Breast Cancer Risk 3.00% Personal Breast Cancer No Personal Ovarian Cancer No Treatments None Family Cancers Aunt-maternal with colon cancer at age ~60; Aunt-maternal with breast cancer at age ~60. LOCATION: [facility] BREAST COMPOSITION: The breasts are heterogeneously dense, which may obscure small masses. FINDINGS: RIGHT BREAST: No significant suspicious finding. LEFT BREAST: No significant suspicious finding. DIAGNOSTIC CATEGORY 1--NEGATIVE. RECOMMENDATIONS: ROUTINE MAMMOGRAM AND CLINICAL EVALUATION IN 12 MONTHS. Dictated by: Franklin King DO on 05/21/2025 at 10:21 Approved by: Franklin King DO on 05/21/2025 at 10:27
== END 2025-05-21 08:16 | disposition home or self-care (01) ==
LOC: MAMMO 08:15
PROVIDERS: PCP Nurse Practitioner; Visit Provider Nurse Practitioner
DX: Z12.31 Encounter for screening mammogram for malignant neoplasm of breast (principal); Z80.3 Family history of malignant neoplasm of breast; Z80.0 Family history of malignant neoplasm of digestive organs
CPT/HCPCS: 77063; 77067